=== PATIENT | female | born 1945 | race Caucasian/White ===

== ENCOUNTER → 2017-11-19 11:34 | Outpatient (CLI) | payer MEDICARE, OTHER, SELFPAY ==
[2017-11-19 14:30] LABS: Vitamin D,25 Hydroxy 24.2 ng/mL (29.95-100.01)
== END ==
PROVIDERS: Family Provider Internal Medicine; PCP Internal Medicine; Visit Provider Internal Medicine
DX: M81.0 Age-related osteoporosis without current pathological fracture (principal)
CPT/HCPCS: 36415; 82306

== ENCOUNTER → 2017-12-24 11:33 | Outpatient (CLI) | payer MEDICARE, OTHER, SELFPAY ==
[2017-12-24 11:44] LABS: Bacteria 0 SEEN /hpf (None Seen)
[2017-12-24 13:56] LABS: Absolute Lymphocyte Count 2.09 X10^3/ul (0.83-4.51); Absolute Neutrophil Count 5.6 X10^3/uL (2.0-7.7); Basophil# 0.05 X10^3/uL; Basophil% 0.6 % (0-1); Eosinophil# 0.28 X10^3/uL; Eosinophils% 3.2 % (0-5); Hemoglobin 14.3 g/dl (12.0-15.0); Lymphocyte # 2.09 X10^3/ul (4.0); Lymphocyte % 24.1 % (19-41); Mean Corpuscular Hgb 28.5 pg (27.0-32.0); Mean Corpuscular Volume 83.8 fL (81-99); Mean Platelet Vol. 8.8 fl (6.2-12.0); Monocyte# 0.62 X10^3/uL; Monocyte% 7.1 % (0-10); Neutrophil # 5.64 X10^3/uL (2.7-7.7); Neutrophil % 64.9 % (47-70); POSITIVE COUNT NO; POSITIVE DIFFERENTIAL NO; POSITIVE MORPHOLOGY NO; Platelet Count 266 K/mm3 (150-450); RBC Distribution Width CV 13.9 % (11.6-14.6); RBC Distribution Width SD 41.9 fl (35.1-43.9); Red Blood Count 5.01 M/mm3 (4.2-5.4); White Blood Count 8.7 K/mm3 (4.4-11.0)
[2017-12-24 13:57] LABS: Color, Urine Yellow (Yellow); Glucose, Dipstick Normal (Normal); Ketone-Dipstick Negative (Negative); Leukocyte Esterase-Dipstick 500 /ul (Negative); Nitrite-Dipstick Negative (Negative); Occult Blood-Urine 250 /ul (Negative); Protein-Dipstick 15 mg/dl (Negative); Urine Bilirubin Dipstick Negative (Negative); Urine Clarity Sl. Cloudy (Clear); Urine Urobilinogen Normal (Normal)
[2017-12-24 14:12] LABS: Hyaline Cast 0-5 SEEN /lpf (0-5); Mucous, Urine 1+ /hpf (<or=2+)
[2017-12-24 14:13] LABS: Squamous Epithelial Cells - UA 0-5 SEEN /hpf (5-10); White Blood Cells 0-5 SEEN /hpf (0-5)
[2017-12-24 14:15] LABS: Red Blood Cells-Urine 25-50 SEEN /hpf (0-5)
[2017-12-24 14:27] LABS: Anion Gap 9 (5-15); BUN 14 mg/dL (7-18); BUN/Creat Ratio 17.1 RATIO (10-20); Calcium,Total 8.8 mg/dL (8.5-10.1); Chloride 106 mmol/L (98-107); Creatinine, Serum 0.82 mg/dL (0.55-1.02); EST Glomerular Filtration Rate 72 mL/min (>60); Est Glom Filt Rate - Afr Amer 88 mL/min (>60); Glucose 74 mg/dL (74-106); Potassium 3.3 mmol/L (3.5-5.1); Sodium Level 141 mmol/L (136-145)
== END ==
PROVIDERS: Family Provider Internal Medicine; PCP Internal Medicine; Visit Provider Internal Medicine
DX: N39.0 Urinary tract infection, site not specified (principal)
CPT/HCPCS: 36415; 80048; 81001; 85025; 87086; 87088

== ENCOUNTER → 2018-02-01 15:29 | Outpatient (CLI) | payer MEDICARE, OTHER, SELFPAY ==
[2018-02-01 18:16] LABS: Absolute Lymphocyte Count 0.85 X10^3/ul (0.83-4.51); Absolute Neutrophil Count 5.2 X10^3/uL (2.0-7.7); Basophil# 0.03 X10^3/uL; Basophil% 0.5 % (0-1); Eosinophils% 1.6 % (0-5); Hematocrit 41.7 % (37-47); Hemoglobin 14.1 g/dl (12.0-15.0); Lymphocyte # 0.85 X10^3/ul (4.0); Lymphocyte % 13.4 % (19-41); Mean Corp Hgb Conc 33.8 g/gl (32-36); Mean Corpuscular Hgb 28.4 pg (27.0-32.0); Mean Corpuscular Volume 84.1 fL (81-99); Monocyte# 0.17 X10^3/uL; Monocyte% 2.7 % (0-10); Neutrophil # 5.21 X10^3/uL (2.7-7.7); Neutrophil % 81.8 % (47-70); Platelet Count 214 K/mm3 (150-450); RBC Distribution Width CV 13.7 % (11.6-14.6); RBC Distribution Width SD 41.5 fl (35.1-43.9); Red Blood Count 4.96 M/mm3 (4.2-5.4); White Blood Count 6.4 K/mm3 (4.4-11.0)
[2018-02-01 18:17] LABS: POSITIVE COUNT NO; POSITIVE DIFFERENTIAL NO; POSITIVE MORPHOLOGY NO
[2018-02-01 18:28] LABS: AST(SGOT) 31 U/L (15-37); Alanine Aminotransfer ALT/SGPT 42 U/L (13-56); Albumin, Serum 3.8 g/dL (3.2-5.0); Alkaline Phosphatase 47 U/L (45-117); Anion Gap 8 (5-15); BUN 15 mg/dL (7-18); BUN/Creat Ratio 17.2 RATIO (10-20); Calcium,Total 9.1 mg/dL (8.5-10.1); Chloride 106 mmol/L (98-107); Creatinine, Serum 0.87 mg/dL (0.55-1.02); EST Glomerular Filtration Rate 68 mL/min (>60); Est Glom Filt Rate - Afr Amer 82 mL/min (>60); Globulin 3.7 g/dL (2.2-4.2); Glucose 120 mg/dL (74-106); Protein, Total 7.5 g/dL (6.4-8.2); Sodium Level 141 mmol/L (136-145)
== END ==
PROVIDERS: Family Provider Internal Medicine; PCP Internal Medicine; Visit Provider Internal Medicine Rheumatology
DX: M35.3 Polymyalgia rheumatica (principal); M06.4 Inflammatory polyarthropathy; F32.89 Other specified depressive episodes; E78.5 Hyperlipidemia, unspecified; K58.9 Irritable bowel syndrome, unspecified; G47.33 Obstructive sleep apnea (adult) (pediatric)
CPT/HCPCS: 36415; 80053; 85025

== ENCOUNTER → 2018-02-16 13:16 | Outpatient (CLI) | payer MEDICARE, OTHER, SELFPAY ==
[2018-02-16 13:22] LABS: Pathologist Comment May follow
[2018-02-16 14:11] LABS: Synovial Fld Mononuclear WBC % 83.9 %; Synovial Fld Polynuclear WBC # 0.065 10^3/ul; Synovial Fld Polynuclear WBC % 16.1 %
[2018-02-16 16:29] LABS: AUTO B FLUID DILUENT BKGD CT WBC <0.1 RBC <0.01 (W<.1,R<.01)
[2018-02-16 16:30] LABS: Appearance /Synovial Fluid Cloudy (CLEAR); CRYSTALS, BODY FLUID NONE SEEN; Color / Synovial Fluid Yellow (Pale Yellow); Source- Body Fluid SYNOVIAL; Viscosity / Synovial Fluid Mod. Viscous (HIGH)
[2018-02-16 16:31] LABS: RBC /Synovial Fluid 5222 /mm3 (0); WBC / Synovial Fluid 411 /mm3 (0)
[2018-02-16 16:32] LABS: Body Fluid QC Type(s) BF2,BF3; Lymph 51 %; Monocyte /Synovial Fluid 21 %; Neutrophil 15 % (0-25); Other Cell /Synovial Fluid 13 %
[2018-02-17 11:46] LABS: Pathologist Review Reviewed
== END ==
PROVIDERS: Family Provider Internal Medicine; PCP Internal Medicine; Visit Provider Internal Medicine Rheumatology
DX: M06.4 Inflammatory polyarthropathy (principal); M35.3 Polymyalgia rheumatica; M25.561 Pain in right knee
CPT/HCPCS: 87070; 87075; 87205; 89050; 89051; 89060

== ENCOUNTER → 2018-04-05 14:18 | Outpatient (CLI) | payer MEDICARE, OTHER, SELFPAY | PROVIDERS: Family Provider Internal Medicine; PCP Internal Medicine; Visit Provider Internal Medicine | DX: M81.0 Age-related osteoporosis without current pathological fracture (principal); Z12.31 Encounter for screening mammogram for malignant neoplasm of breast | CPT/HCPCS: 77063; 77067; 77080 ==

== ENCOUNTER → 2018-05-31 10:42 | Outpatient (CLI) | payer MEDICARE, OTHER, SELFPAY ==
[2018-05-31 11:50] LABS: Absolute Lymphocyte Count 1.66 X10^3/ul (0.83-4.51); Absolute Neutrophil Count 3.9 X10^3/uL (2.0-7.7); Basophil# 0.06 X10^3/uL; Basophil% 0.9 % (0-1); Eosinophil# 0.38 X10^3/uL; Eosinophils% 5.8 % (0-5); Hematocrit 42.1 % (37-47); Hemoglobin 14.5 g/dl (12.0-15.0); Lymphocyte # 1.66 X10^3/ul (4.0); Lymphocyte % 25.5 % (19-41); Mean Corp Hgb Conc 34.4 g/gl (32-36); Mean Corpuscular Volume 84.2 fL (81-99); Mean Platelet Vol. 8.8 fl (6.2-12.0); Monocyte# 0.48 X10^3/uL; Monocyte% 7.4 % (0-10); Neutrophil # 3.92 X10^3/uL (2.7-7.7); Neutrophil % 60.1 % (47-70); Platelet Count 261 K/mm3 (150-450); RBC Distribution Width CV 13.4 % (11.6-14.6); RBC Distribution Width SD 40.5 fl (35.1-43.9); White Blood Count 6.5 K/mm3 (4.4-11.0)
[2018-05-31 11:51] LABS: POSITIVE COUNT NO; POSITIVE DIFFERENTIAL NO; POSITIVE MORPHOLOGY NO
[2018-05-31 12:02] LABS: Cholesterol 184 mg/dL (200); High Density Lipoprotein 54 mg/dL; Triglycerides 198 mg/dL; Very Low Density Lipoprotein 40 mg/dL (5-40)
== END ==
PROVIDERS: Family Provider Internal Medicine; PCP Internal Medicine; Referring Provider Internal Medicine; Visit Provider Internal Medicine
DX: D64.9 Anemia, unspecified (principal); N39.0 Urinary tract infection, site not specified; I10 Essential (primary) hypertension
CPT/HCPCS: 36415; 80061; 85025; 87086; 87088

== ENCOUNTER → 2018-07-13 12:01 | Outpatient (CLI) | payer MEDICARE, OTHER, SELFPAY ==
[2018-06-30 15:33] VITALS: BMI 26.7
[2018-07-13 14:27] LABS: Absolute Lymphocyte Count 1.35 X10^3/ul (0.83-4.51); Absolute Neutrophil Count 2.9 X10^3/uL (2.0-7.7); Basophil# 0.03 X10^3/uL; Basophil% 0.6 % (0-1); Eosinophil# 0.34 X10^3/uL; Eosinophils% 6.8 % (0-5); Hematocrit 40.9 % (37-47); Hemoglobin 13.8 g/dl (12.0-15.0); Lymphocyte # 1.35 X10^3/ul (4.0); Lymphocyte % 27.1 % (19-41); Mean Corp Hgb Conc 33.7 g/gl (32-36); Mean Corpuscular Hgb 28.3 pg (27.0-32.0); Mean Corpuscular Volume 83.8 fL (81-99); Mean Platelet Vol. 8.8 fl (6.2-12.0); Monocyte# 0.35 X10^3/uL; Neutrophil # 2.91 X10^3/uL (2.7-7.7); Neutrophil % 58.3 % (47-70); Platelet Count 191 K/mm3 (150-450); RBC Distribution Width CV 13.2 % (11.6-14.6); RBC Distribution Width SD 39.9 fl (35.1-43.9); Red Blood Count 4.88 M/mm3 (4.2-5.4)
[2018-07-13 14:28] LABS: POSITIVE COUNT NO; POSITIVE DIFFERENTIAL NO; POSITIVE MORPHOLOGY NO
[2018-07-13 14:41] LABS: ALB/GLOB Ratio 1.1 RATIO (0.9-2.4); AST(SGOT) 19 U/L (15-37); Alanine Aminotransfer ALT/SGPT 34 U/L (13-56); Albumin, Serum 3.6 g/dL (3.2-5.0); Alkaline Phosphatase 52 U/L (45-117); Anion Gap 9 (5-15); BUN 13 mg/dL (7-18); BUN/Creat Ratio 17.2 RATIO (10-20); Calcium,Total 8.8 mg/dL (8.5-10.1); Chloride 108 mmol/L (98-107); Creatinine, Serum 0.76 mg/dL (0.55-1.02); EST Glomerular Filtration Rate 80 mL/min (>60); Est Glom Filt Rate - Afr Amer 96 mL/min (>60); Globulin 3.3 g/dL (2.2-4.2); Glucose 79 mg/dL (74-106); Potassium 3.7 mmol/L (3.5-5.1); Protein, Total 6.9 g/dL (6.4-8.2); Sodium Level 143 mmol/L (136-145)
--- OUTSIDE RECORDS SUMMARY | 2018-08-29 15:35 | XMS RPT_ITS ---
:1945 Author Organization OHIP Support Name Relationship Address Phone R Unavailable Unavailable Unavailable R Unavailable Unavailable Unavailable R Unavailable Unavailable Unavailable R Unavailable Unavailable Unavailable R Unavailable Unavailable Unavailable R Unavailable Unavailable Unavailable R Unavailable Unavailable Unavailable R Unavailable Unavailable Unavailable R Unavailable Unavailable Unavailable R Unavailable Unavailable Unavailable R Unavailable Unavailable Unavailable R Unavailable Unavailable Unavailable R Unavailable Unavailable Unavailable ZAHRA, LON Unavailable . + [place] [address] R Unavailable Unavailable Unavailable R Unavailable Unavailable Unavailable ZAHRA, ARNAV Unavailable Unavailable + [place] [address] ZAHRA, LON Unavailable Unavailable + [place] [address] R Unavailable Unavailable Unavailable ZAHRA, LON Unavailable . + [place] [address] R Unavailable Unavailable Unavailable R Unavailable Unavailable Unavailable ZAHRA, ARNAV Unavailable Unavailable + [place] [address] ZAHRA, LON Unavailable Unavailable + [place] [address] R Unavailable Unavailable Unavailable ZAHRA, ARNAV Unavailable . + [place] [address] ZAHRA, LON Unavailable . + [place] [address] R Unavailable Unavailable Unavailable ZAHRA, ARNAV Unavailable . + [place] [address] ZAHRA, LON Unavailable . + [place] [address] R Unavailable Unavailable Unavailable ZAHRA, ARNAV Unavailable . + [place] [address] ZAHRA, LON Unavailable . + [place] [address] R Unavailable Unavailable Unavailable ZAHRA, ARNAV Unavailable . + [place] [address] ZAHRA, LON Unavailable . + [place] [address] R Unavailable Unavailable Unavailable ZAHRA, ARNAV Unavailable . + [place] [address] LON SWEENEY Unavailable . + [place] [address] R Unavailable Unavailable Unavailable Care Team Providers Name Role Phone Asia Dozier Attending Unavailable Koffilanki, Asia Referring Unavailable Oleghe, Efewongbe Primary Care Unavailable Saira Knight Attending Unavailable Abdifatah Mann D.O. Attending Unavailable Oleghe, Efewongbe Referring Unavailable Angus Mackenzie [facility] Attending Unavailable Oleghe, Efewongbe Referring Unavailable Oleghe, Efewongbe Primary Care Unavailable Abdifatah Mann D.O. Attending Unavailable Oleghe, Efewongbe Referring Unavailable Maisha Vann Attending Unavailable Oleghe, Efewongbe Referring Unavailable Macho Diamond Attending Unavailable Oleghe, Efewongbe Referring Unavailable Oleghe, Efewongbe Primary Care Unavailable Oleghe, Efewongbe Attending Unavailable Oleghe, Efewongbe Referring Unavailable Oleghe, Efewongbe Primary Care Unavailable Oleghe, Efewongbe Attending Unavailable Oleghe, Efewongbe Primary Care Unavailable Oleghe, Efewongbe Attending Unavailable Oleghe, Efewongbe Referring Unavailable Oleghe, Efewongbe Primary Care Unavailable Oleghe, Efewongbe Attending Unavailable Oleghe, Efewongbe Referring Unavailable Oleghe, Efewongbe Primary Care Unavailable Oleghe, Efewongbe Attending Unavailable Oleghe, Efewongbe Referring Unavailable Oleghe, Efewongbe Primary Care Unavailable Maisha Vann Attending Unavailable Oleghe, Efewongbe Referring Unavailable KoffilankiPepema Attending Unavailable Vellanki, Asia Referring Unavailable Oleghe, Efewongbe Primary Care Unavailable Pepe Dozierma Attending Unavailable Oleghe, Efewongbe Primary Care Unavailable Vellanki, Asia Referring Unavailable Oleghe, Efewongbe Attending Unavailable Oleghe, Efewongbe Referring Unavailable Oleghe, Efewongbe Primary Care Unavailable Oleghe, Efewongbe Attending Unavailable Oleghe, Efewongbe Primary Care Unavailable Oleghe, Efewongbe Referring Unavailable Alan Patel Attending Unavailable Oleghe, Efewongbe Attending Unavailable Oleghe, Efewongbe Referring Unavailable Oleghe, Efewongbe Attending Unavailable Oleghe, Efewongbe Referring Unavailable Oleghe, Efewongbe Primary Care Unavailable Jeff Shah Attending Unavailable Oleghe, Efewongbe Referring Unavailable Oleghe, Efewongbe Attending Unavailable Oleghe, Efewongbe Referring Unavailable PROBLEMS PROBLEMS DATE TYPE CONDITION / CODE ATTENDING STATUS SOURCE 07/13/2018 Unknown M35.3 - Polymyalgia Asia Dozier Active [place] rheumatica / Community M35.3(ICD-10) Hospital Repository 07/13/2018 Unknown 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 / Community M06.4(ICD-10) Hospital Repository 07/13/2018 Unknown F32.89 - Other Asia Dozier Active [place] specified depressive Community episodes / Hospital F32.89(ICD-10) Repository 07/13/2018 Unknown E78.5 - Asia Dozier Active [place] Hyperlipidemia, Community unspecified / Hospital E78.5(ICD-10) Repository 07/13/2018 Unknown K58.9 - Irritable Asia Dozier Active [place] bowel syndrome Community without diarrhea / Hospital K58.9(ICD-10) Repository 07/13/2018 Unknown G47.33 - Obstructive Asia Dozier Active [place] sleep apnea (adult) Community (pediatric) / Hospital G47.33(ICD-10) Repository 05/27/2018 Unknown D64.9 - Anemia, Oleghe, Active [place] unspecified / Efew[facility]be Community D64.9(ICD-10) Hospital Repository 06/14/2018 Unknown Z23 - Encounter for Alan Patel Active [place] immunization / Community Z23(ICD-10) Hospital Repository 02/18/2018 Unknown M81.0 - Age-related Oleghe, Active [place] osteoporosis without ewongbe [facility] current pathological Hospital fracture / Repository M81.0(ICD-10) 02/18/2018 Unknown Z12.31 - Encounter Oleghe, Active [place] for screening [facility] mammogram for Hospital malignant neoplasm of Repository breast / Z12.31(ICD-10) 02/18/2018 Unknown I10 - Essential Oleghe, Active [place] (primary) [facility] hypertension / Hospital I10(ICD-10) Repository 02/16/2018 Unknown M25.561 - Pain in Asia Dozier Active [place] right knee / Community M25.561(ICD-10) Hospital Repository 12/24/2017 Unknown N39.0 - Urinary tract Oleghe, Active [place] infection, site not [facility] Community specified / Hospital N39.0(ICD-10) Repository 10/21/2017 Unknown F17.201 - Nicotine Abdifatah Mann, Active [place] dependence, D.O. Community unspecified, in Hospital remission / Repository F17.201(ICD-10) 10/21/2017 Unknown Z09 - Encounter for Abdifatah Mann, Active [place] follow-up examination D.O. Community after completed Hospital treatment for Repository conditions other than malignant neoplasm / Z09(ICD-10) PROCEDURES PROCEDURES No Procedure Records FoundRESULTS RESULTS CBC W/DIFF, AUTOMATED Collected: 07/13/2018 Status: F Source: [place] 12:11 PM [facility] REPOSITORY TYPE CODE TESTS RESULT OUT OF RANGE REFERENCE UNITS LAB L100.1000 4.4-11.0 K/mm3 Normal WBC 5.0 LAB L100.1200 4.2-5.4 M/mm3 Normal RBC 4.88 LAB L100.1300 12.0-15.0 g/dl Normal HGB 13.8 LAB L100.1400 37-47 % Normal HCT 40.9 LAB L100.1500 81-99 fL Normal MCV 83.8 LAB L100.1600 27.0-32.0 pg Normal MCH 28.3 LAB L100.1700 32-36 g/gl Normal MCHC 33.7 LAB L100.1810 11.6-14.6 % Normal RDW CV 13.2 LAB L100.1820 35.1-43.9 fl Normal RDW SD 39.9 LAB L100.1900 150-450 K/mm3 Normal PLT 191 LAB L100.2000 6.2-12.0 fl Normal MPV 8.8 LAB L100.2100 47-70 % Normal NEUT% 58.3 LAB L100.2200 19-41 % Normal LY% 27.1 LAB L100.2300 0-10 % Normal MONO% 7.0 LAB L100.2400 0-5 % High EO% 6.8 LAB L100.2500 0-1 % Normal BASO% 0.6 LAB L100.2550 0.0-0.9 % Normal IM GRAN % 0.200 Result Comment: IG% - Immature Granulocytes (promyelocytes, myelocytes and metamyelocytes) > 1% indicates that a LEFT SHIFT is Present. LAB L100.2620 2.0-7.7 X10 3/uL Normal Absolute Neut 2.9 LAB L100.2720 0.83-4.51 X10 3/ul Normal Absolute Lymph 1.35 Performed By: #### L100.0100 #### [facility] [address] [place], [address] COMPREHENSIVE METABOLIC Collected: 07/13/2018 Status: F Source: [facility] 12:11 PM [facility] REPOSITORY TYPE CODE TESTS RESULT OUT OF RANGE REFERENCE UNITS LAB L501.0100 74-106 mg/dL Normal GLU 79 Result Comment: Please note revised GLUCOSE reference range effective 2017. LAB L501.1000 7-18 mg/dL Normal BUN 13 LAB L501.1100 0.55-1.02 mg/dL Normal CREAT,SERUM 0.76 Result Comment: The validity of the calculated GFR AND GFRAA in patients over 70 years has not been determined. Clinical correlation is essential. LAB L501.1110 >60 mL/min Normal EST GFR 80 Result Comment: Non- GFR Calc LAB L501.1115 >60 mL/min Normal EST GFR - AA 96 Result Comment: GFR Calc LAB L501.1300 10-20 RATIO Normal BUN/CRE 17.2 LAB L501.1500 6.4-8.2 g/dL T Normal PROT 6.9 LAB L501.1800 3.2-5.0 g/dL Normal ALB 3.6 LAB L501.1950 2.2-4.2 g/dL Normal GLOB 3.3 LAB L501.2000 0.9-2.4 RATIO Normal A/G 1.1 LAB L501.2200 8.5-10.1 mg/dL CA Normal 8.8 LAB L501.4100 15-37 U/L Normal AST 19 LAB L501.4305 45-117 U/L Normal ALK P 52 LAB L501.4405 13-56 U/L Normal ALT 34 LAB L501.4600 0.20-1.00 mg/dL T Normal BILI 0.90 LAB L501.5300 136-145 mmol/L NA Normal 143 LAB L501.5600 3.5-5.1 mmol/L K Normal 3.7 LAB L501.5900 98-107 mmol/L High CL 108 LAB L501.6100 21.0-32.0 mmol/L Normal CO2 26.0 LAB L501.6200 5-15 Normal GAP 9 Performed By: #### L500.4050 #### [facility] [address] [place], [address] INTERNAL MEDICINE Observed: 06/30/2018 Status: F Source: [place] OFFICE VISIT 6:54 PM [facility] REPOSITORY [facility] [address] [place] [address] [place] [address] OFFICE VISIT Date of Service: 06/30/18 MR#: [id number] Acct: [id number] Name: BRANDI SWEENEY Rep #: [id number] : 1945 Provider: Berta Sofia MD Age/Sex: 73/F Location: [facility] Status: Signed Intake Vital Signs06/30/18 Height 5 ft 4 in Intake Visit Reasons: 1 MO F/U Chief Complaint: f/u BP Is patient in pain?: No Allergies No Known Allergies Allergy (Verified 06/27/18 10:13) Medications acetaminophen 325 mg tablet 500 mg PO Q4H PRN 07/19/17 [History Confirmed 06/27/18] aspirin 81 mg tablet,delayed release 81 mg PO QDAY 07/19/17 [History Confirmed 06/27/18] omeprazole 20 mg capsule,delayed release 20 mg PO QDAY #90 cap 09/29/17 [Rx Confirmed 06/27/18] hydroxychloroquine 200 mg tablet 200 mg PO QDAY 10/26/17 [History Confirmed 06/27/18] ferrous sulfate 325 mg (65 mg iron) tablet 325 mg PO DAILY #30 tab 04/15/18 [Rx Confirmed 06/27/18] amlodipine 5 mg tablet 10 mg PO QDAY #90 tab 05/27/18 [Rx Confirmed 06/27/18] sertraline 50 mg tablet 75 mg PO QDAY #90 tab 05/27/18 [Rx Confirmed 06/27/18] prednisone 10 mg tablet 10 mg PO DAILY 06/27/18 [History Confirmed 06/27/18] Post menopausal: Yes PFSH Medical History Osteoporosis (Chronic) Hypertension (Chronic) YOUNG (obstructive sleep apnea) (Chronic) SOB (shortness of breath) (Chronic) Anemia (Chronic) Hyperlipidemia (Chronic) Rheumatoid arthritis (Chronic) Snoring (Chronic) GERD (gastroesophageal reflux disease) (Chronic) Nicotine dependence in remission (Chronic) Anxiety associated with depression (Chronic) Dyspnea on exertion (Chronic) Back pain (Acute) Bone fracture (Acute) Cataracts, bilateral (Acute) Chronic bronchitis (Acute) Gastrointestinal problem (Acute) Hearing problem (Acute) Hemorrhoids (Acute) IBS (irritable bowel syndrome) (Acute) Incontinence (Acute) Knee pain (Acute) Shoulder pain (Acute) Obstructive sleep apnea (Chronic) Surgical History History of tubal ligation (Resolved) Hx of LASIK (Resolved) history of mastoids in ear (Resolved) History of colon surgery (Resolved) Family History Mother , 75 years Cancer Liver cancer and stomach Angina at rest Anxiety History of blood transfusion Diabetes Hypertension High cholesterol Liver disease Father , 60 years Heart disease [place] Angina at rest High cholesterol Brother Heart disease Sister Asthma A CHILD Depression Colon cancer Multiple allergies Brother Pancreatic cancer Social History adopted: No housing: house current occupational status: previously employed current occupational exposures/hazards: No pets and animals: Yes pets and animals: dog(s), cat(s) Smoking Status: Former smoker quit date: 01/24/99 pack-years: 40 how long ago did patient quit smokin second hand exposure: No alcohol intake: never substance use type: does not use caffeine: Yes (3/day) additional social history: USES ASPIRIN HPI HPI Chief Complaint: f/u BP Details: BRANDI SWEENEY, is a 73 F who presents to the office today for follow-up on hypertension. Recently had adjustments to medication. Blood pressure is better controlled at this time. She denies any concerns with her medication. ROS Const Constitutional: No body ache, chills, headache(s), weakness or fever(s) Eyes Eyes: No blurry vision, change in vision, eye pain or discharge ENT ENT: No headache(s), abnormal hearing, ear pain, ear pressure, tinnitus, dizziness/vertigo or balance problems Resp Respiratory: No cough, shortness of breath or wheezing Cardio Cardiology: No chest pain at rest, shortness of breath, dyspnea on exertion or palpitations Gastro GI: No abdominal pain or bloating Neuro Neurology: No headache(s), weakness or abnormal hearing Aller/Imm Allergy/Immunologic: No wheezing Exam Const General: cooperative, no acute distress Orientation: alert, awake, oriented x3 HENMT Head: atraumatic, normocephalic, normal to inspection Ears: hearing grossly normal bilaterally Resp Effort AND Inspection: normal respiratory effort, able to speak in complete sentences Auscultation: Bilateral: Clear to Auscultation Cardio Rate: regular rate Rhythm: regular rhythm Heart Sounds: S1 normal, S2 normal GI Palpation: soft, no hepatosplenomegaly Neuro General: alert, awake, oriented x3, moves all extremities, CN's II-XI intact bilaterally Extrem General: no clubbing, cyanosis or edema Psych Appearance: grossly normal Mood: congruent mood Affect: normal affect Assessment AND Plan 1. Hypertension I10 Plan Better controlled. Blood pressure in office of 122/70 mmHg. She reports compliance with her medications. No other concerns. Continue current medication. Continue lifestyle and dietary modifications. 2. Anxiety associated with depression F41.8 Plan Has a lot of life stresses right now. Twin brother is dying from pancreatic cancer. On her way to the [facility] to see him. Otherwise stable on sertraline. Continue current medication. Advised to call with any questions or concerns. This note was generated with [employer] dictation software. It may contain incorrect words, spelling, and punctuation that were not noted in checking the note before signing. Coding Level of Care Code Off vis,est,level 3 Diagnoses Hypertension I10 Anxiety associated with depression F41.8 06/30/18 7154 <Electronically signed by Berta Sofia MD> Date Berta Sofia MD Cosigner Signature: Date (if applicable) CC: URGENT CARE VISIT Observed: 06/27/2018 Status: F Source: [place] REPORT 10:21 AM [facility] REPOSITORY [facility] [address] [place] [address] [address] [place] [address] OFFICE VISIT Date of Service: 06/27/18 MR#: [id number] Acct: [id number] Name: BRANDI SWEENEY Rep #: [id number] : 1945 Provider: Jeff HENLEY Age/Sex: 73/F Location: [facility] Status: Signed Intake Vital Signs06/27/18 Height 5 ft 4 in Intake Visit Reasons: Conjunctivitis Chief Complaint: Redness to right eye Allergies No Known Allergies Allergy (Verified 06/27/18 10:13) Medications acetaminophen 325 mg tablet 500 mg PO Q4H PRN 07/19/17 [History Confirmed 06/27/18] aspirin 81 mg tablet,delayed release 81 mg PO QDAY 07/19/17 [History Confirmed 06/27/18] omeprazole 20 mg capsule,delayed release 20 mg PO QDAY #90 cap 09/29/17 [Rx Confirmed 06/27/18] hydroxychloroquine 200 mg tablet 200 mg PO QDAY 10/26/17 [History Confirmed 06/27/18] ferrous sulfate 325 mg (65 mg iron) tablet 325 mg PO DAILY #30 tab 04/15/18 [Rx Confirmed 06/27/18] amlodipine 5 mg tablet 10 mg PO QDAY #90 tab 05/27/18 [Rx Confirmed 06/27/18] sertraline 50 mg tablet 75 mg PO QDAY #90 tab 05/27/18 [Rx Confirmed 06/27/18] prednisone 10 mg tablet 10 mg PO DAILY 06/27/18 [History Confirmed 06/27/18] PFSH Medical History Osteoporosis (Chronic) Hypertension (Chronic) YOUNG (obstructive sleep apnea) (Chronic) SOB (shortness of breath) (Chronic) Anemia (Chronic) Hyperlipidemia (Chronic) Rheumatoid arthritis (Chronic) Snoring (Chronic) GERD (gastroesophageal reflux disease) (Chronic) Nicotine dependence in remission (Chronic) Anxiety associated with depression (Chronic) Dyspnea on exertion (Chronic) Back pain (Acute) Bone fracture (Acute) Cataracts, bilateral (Acute) Chronic bronchitis (Acute) Gastrointestinal problem (Acute) Hearing problem (Acute) Hemorrhoids (Acute) IBS (irritable bowel syndrome) (Acute) Incontinence (Acute) Knee pain (Acute) Shoulder pain (Acute) Obstructive sleep apnea (Chronic) Surgical History History of tubal ligation (Resolved) Hx of LASIK (Resolved) history of mastoids in ear (Resolved) History of colon surgery (Resolved) Family History Mother , 75 years Cancer Liver cancer and stomach Angina at rest Anxiety History of blood transfusion Diabetes Hypertension High cholesterol Liver disease Father , 60 years Heart disease [place] Angina at rest High cholesterol Brother Heart disease Sister Asthma A CHILD Depression Colon cancer Multiple allergies Brother Pancreatic cancer Social History adopted: No housing: house current occupational status: previously employed current occupational exposures/hazards: No pets and animals: Yes pets and animals: dog(s), cat(s) Smoking Status: Former smoker quit date: 01/24/99 pack-years: 40 how long ago did patient quit smokin second hand exposure: No alcohol intake: never substance use type: does not use caffeine: Yes (3/day) additional social history: USES ASPIRIN HPI HPI Chief Complaint: Redness to right eye Details: BRANDI SWEENEY, is a 73 F who presents to the office today for initial evaluation new onset redness to right eye. Patient notes no complaints of localized discomfort or discharge or vision changes. She notes no history of trauma to the same. She notes no coughing or sneezing or bearing down episodes recently. She notes no complaints of fever, chills, sweats, headaches, lightheadedness/dizziness. She notes no other associated symptoms no other alleviating or aggravating factors. ROS Const Constitutional: No other (ROS negative x10 other than as noted above) Exam Const General: cooperative, healthy appearing, no acute distress, comfortable Nutritional Appearance: average body habitus Orientation: alert, awake, oriented x3 HENMT Head: normal to inspection, normocephalic, atraumatic Ears: hearing grossly normal bilaterally, external ears normal, TM's normal bilaterally, EAC's normal Nose: external nose normal, nares normal, septum normal, no nasal discharge Face and sinus: normal facial exam, face symmetric, sinuses nontender Mouth: oral mucosae normal, lip normal, tongue normal Teeth and gingiva: gingiva normal, dentition normal Throat: uvula midline, tonsils normal, posterior oropharynx normal, no postnasal drainage Eyes Visual Murillo: normal visual murillo by confrontation Alignment and Position: alignment normal Periorbital: periorbital findings normal Eyelids: eyelids normal Conjunctivae: conjunctivae normal (Except the subconjunctival hemorrhage to the lateral half; negative limbus) Cornea: corneas normal Pupils: PERRL EOM: EOM intact bilaterally Direct ophthalmoscopy: normal light reflex Neck Neck: normal visual inspection, full ROM, no lymphadenopathy, no meningeal signs, supple Neck mass: No Thyroid: thyroid normal Lymphatic: no lymphadenopathy noted Chest Chest palpation AND inspection: normal inspection of the chest Resp Effort AND Inspection: normal respiratory effort, able to speak in complete sentences, symmetric chest movement, no cough Auscultation: Bilateral: Clear to Auscultation Cardio Palpation: normal PMI Rate: regular rate Rhythm: regular rhythm Heart Sounds: S1 normal, S2 normal, no gallops, no murmurs, no rubs Pulses: radial pulses present GI Inspection: normal to inspection Palpation: soft, no hepatosplenomegaly Skin General: no rashes or lesions noted Neuro General: alert, awake, oriented x3, gait normal Cognition: normal cognition Speech: speech normal Gait: normal gait Motor: muscle tone normal throughout Sensory Exam: no sensory deficits noted Psych Appearance: grossly normal Mental Status: mental status grossly normal Mood: congruent mood Affect: normal affect Speech and Movement: speech and movement normal Attitude: cooperative Thought Process: normal Thought Content: normal Judgment: judgment good Assessment AND Plan 1. Conjunctivitis H10.9 2. Subconjunctival hemorrhage of right eye H11.31 Plan Rest, Tylenol as needed for symptomatic relief. Reassured patient no signs of conjunctivitis. Follow-up with PCP in 3-5 days should symptoms not improve, sooner should symptoms worsen or any other concerns develop. Patient states acknowledging understanding all the above. This note was generated with [employer] software. It may contain incorrect words, spelling, and punctuation that were not noted in checking the note before signing. Plan Detail Other Medications Discontinued: albuterol sulfate HFA 90 mcg/actuation (ProAir HFA) a2 puffs Inhalation Q4H 1 inh 3RF dminister with spacer Discontinued Reason: Pt no elmer nena taking Coding Level of Care Code Off vis,est,level 3 Diagnoses Conjunctivitis H10.9 Subconjunctival hemorrhage of right eye H11.31 06/27/18 1021 <Electronically signed by Jeff HENLEY> Date Jeff HENLEY Cosigner Signature: Date (if applicable) CC: OFFICE VISIT REPORT Observed: 06/10/2018 Status: F Source: [place] 7:[address] [place] [address] OFFICE VISIT Date of Service: 04/30/18 MR#: [id number] Acct: [id number] Patient: BRANDI SWEENEY Rep #: [id number] : 1945 Provider: Fazal Anderson RN Age/Sex: 72/F Location: [facility] Status: Signed Intake Vital Signs04/30/18 Temperature 98.4 F Intake Visit Reasons: Flu shot Chief Complaint: 3 Mo follow-up visit Allergies No Known Allergies Allergy (Verified 05/27/18 11:15) Medications acetaminophen 325 mg tablet 500 mg PO Q4H PRN 07/19/17 [History Confirmed 05/27/18] kgtae-z-sbqzsbzoqbqcv 300 unit disintegrating tablet 300 unit PO TID PRN 07/19/17 [History Confirmed 05/27/18] aspirin 81 mg tablet,delayed release 81 mg PO QDAY 07/19/17 [History Confirmed 05/27/18] lisinopril 10 mg tablet 10 mg PO QDAY 07/19/17 [History Confirmed 05/27/18] prednisolone sodium phosphate 10 mg/5 mL oral solution 5 mg PO ONCE 07/19/17 [History Confirmed 05/27/18] albuterol sulfate HFA 90 mcg/actuation aerosol inhaler 2 puff INHALATION Q4H #1 inh 08/03/17 [Rx Confirmed 05/27/18] calcium carbonat and lactate 200 mg calcium-vitamin D3 250 unit tablet 2 tab PO HS 08/20/17 [History Confirmed 05/27/18] omeprazole 20 mg capsule,delayed release 20 mg PO QDAY #90 cap 09/29/17 [Rx Confirmed 05/27/18] hydroxychloroquine 200 mg tablet 200 mg PO QDAY 10/26/17 [History Confirmed 05/27/18] risedronate 150 mg tablet 150 mg PO QMONTH 10/26/17 [History Confirmed 05/27/18] simvastatin 10 mg tablet 10 mg PO QPM #90 tab 03/30/18 [Rx Confirmed 05/27/18] ferrous sulfate 325 mg (65 mg iron) tablet 325 mg PO DAILY #30 tab 04/15/18 [Rx Confirmed 05/27/18] amlodipine 5 mg tablet 10 mg PO QDAY #90 tab 05/27/18 [Rx Confirmed 05/27/18] blood pressure test kit-medium cuff See Dose Instructions .ROUTE .MEDSUPPLY #1 ea 05/27/18 [Rx Confirmed 05/27/18] gabapentin 100 mg capsule 100 mg PO QHS #60 cap 05/27/18 [Rx Confirmed 05/27/18] sertraline 50 mg tablet 75 mg PO QDAY #90 tab 05/27/18 [Rx Confirmed 05/27/18] Office Meds Fluad 65yr up(PF)45 mcg(15 mcgx3)/0.5 mL intramuscular syringe Performing Provider: LORY Bell Administered by: Miriam Nicole on 04/30/18 12:31 Dose Route Admin Location Lot Number Expiration Date [facility] [employer] 0.5 mL IM L DELTOID [id number] 11/29/18 78701-763-38 [employer] Assessment AND Plan Orders Orders: Medications Discontinued: Fluad 65yr up(PF)45 mcg(15 mcgx3)/0.5 mL intramus0.5 mL IM ONCE 0.5 mL 0RF NS Z23 cular syringe (flu vac 2017 [id number])) Discont inued Reason: Office Medication has been Documented as g robinson 06/10/18 0740 <Electronically signed by Alan HENLEY> Date Alan Sánchezer Signature: Date (if applicable) CC: CBC W/DIFF, AUTOMATED Collected: 05/31/2018 Status: F Source: [place] 10:48 AM [facility] REPOSITORY TYPE CODE TESTS RESULT OUT OF RANGE REFERENCE UNITS LAB L100.1000 4.4-11.0 K/mm3 Normal WBC 6.5 LAB L100.1200 4.2-5.4 M/mm3 Normal RBC 5.00 LAB L100.1300 12.0-15.0 g/dl Normal HGB 14.5 LAB L100.1400 37-47 % Normal HCT 42.1 LAB L100.1500 81-99 fL Normal MCV 84.2 LAB L100.1600 27.0-32.0 pg Normal MCH 29.0 LAB L100.1700 32-36 g/gl Normal MCHC 34.4 LAB L100.1810 11.6-14.6 % Normal RDW CV 13.4 LAB L100.1820 35.1-43.9 fl Normal RDW SD 40.5 LAB L100.1900 150-450 K/mm3 Normal PLT 261 LAB L100.2000 6.2-12.0 fl Normal MPV 8.8 LAB L100.2100 47-70 % Normal NEUT% 60.1 LAB L100.2200 19-41 % Normal LY% 25.5 LAB L100.2300 0-10 % Normal MONO% 7.4 LAB L100.2400 0-5 % High EO% 5.8 LAB L100.2500 0-1 % Normal BASO% 0.9 LAB L100.2550 0.0-0.9 % Normal IM GRAN % 0.300 Result Comment: IG% - Immature Granulocytes (promyelocytes, myelocytes and metamyelocytes) > 1% indicates that a LEFT SHIFT is Present. LAB L100.2620 2.0-7.7 X10 3/uL Normal Absolute Neut 3.9 LAB L100.2720 0.83-4.51 X10 3/ul Normal Absolute Lymph 1.66 Performed By: #### L100.0100 #### [facility] [address] [place], [address] LIPID PROFILE Collected: 05/31/2018 Status: F Source: [place] 10:48 AM [facility] REPOSITORY Order Comment: Comments: Fasting Comments: Fasting TYPE CODE TESTS RESULT OUT OF RANGE REFERENCE UNITS LAB L501.4900 200 mg/dL Normal CHOL 184 Result Comment: <200 mg/dL Desirable 200-240 mg/dL Borderline >240 mg/dL High Risk LAB L501.5000 mg/dL Normal TRIG 198 Result Comment: The drugs N-Acetylcysteine and Metamizole may falsely depress this assay. Serum Triglycerides Reference Interval Normal <150 mg/dL Borderline high 150 - 199 mg/dL High 200 - 499 mg/dL Very High > or = 500 mg/dL LAB L501.6400 mg/dL Normal HDL 54 Result Comment: The drugs N-Acetylcysteine and Metamizole may falsely depress this assay. Reference Range HDL <40 mg/dL Low HDL Cholesterol HDL >or= 60 mg/dL High HDL Cholesterol LAB L501.6500 0-130 mg/dL Normal LDL 90 LAB L501.6600 5-40 mg/dL Normal VLDL 40 Performed By: #### L500.4100 #### [facility] [address] [place], [address] Observed: 05/31/2018 Status: F Source: [place] CULTURE, URINE 10:48 AM [facility] REPOSITORY Urine Culture Below infection level. ORGANISM 1: Mixed Gram Positive Organisms Mullin Count 1000-10,000 Performed By: #### M100.0650 #### [facility] [address] [place], [address] INTERNAL MEDICINE Observed: 05/30/2018 Status: F Source: [place] OFFICE VISIT 1:10 PM [facility] REPOSITORY [facility] [address] [place] [address] [place] [address] OFFICE VISIT Date of Service: 05/27/18 MR#: [id number] Acct: [id number] Name: BRANDI SWEENEY Rep #: [id number] : 1945 Provider: Berta Sofia MD Age/Sex: 73/F Location: [facility] Status: Signed Intake Vital Signs05/27/18 Height 5 ft 3.75 in 05/27/18 Weight: 156 lb 05/27/18 Body Mass Index (BMI) 26.9 05/27/18 Blood Pressure 145/78 H 05/27/18 Blood Pressure Location Lt brachial Intake Visit Reasons: 3 mo f/u Chief Complaint: 3 Mo follow-up visit Is patient in pain?: Yes (Rt knee) Pain scale (1-10): 3 Allergies No Known Allergies Allergy (Verified 05/27/18 11:15) Medications acetaminophen 325 mg tablet 500 mg PO Q4H PRN 07/19/17 [History Confirmed 05/27/18] pqqpb-w-acewddkvwwfyr 300 unit disintegrating tablet 300 unit PO TID PRN 07/19/17 [History Confirmed 05/27/18] aspirin 81 mg tablet,delayed release 81 mg PO QDAY 07/19/17 [History Confirmed 05/27/18] lisinopril 10 mg tablet 10 mg PO QDAY 07/19/17 [History Confirmed 05/27/18] prednisolone sodium phosphate 10 mg/5 mL oral solution 5 mg PO ONCE 07/19/17 [History Confirmed 05/27/18] albuterol sulfate HFA 90 mcg/actuation aerosol inhaler 2 puff INHALATION Q4H #1 inh 08/03/17 [Rx Confirmed 05/27/18] calcium carbonat and lactate 200 mg calcium-vitamin D3 250 unit tablet 2 tab PO HS 08/20/17 [History Confirmed 05/27/18] omeprazole 20 mg capsule,delayed release 20 mg PO QDAY #90 cap 09/29/17 [Rx Confirmed 05/27/18] hydroxychloroquine 200 mg tablet 200 mg PO QDAY 10/26/17 [History Confirmed 05/27/18] risedronate 150 mg tablet 150 mg PO QMONTH 10/26/17 [History Confirmed 05/27/18] simvastatin 10 mg tablet 10 mg PO QPM #90 tab 03/30/18 [Rx Confirmed 05/27/18] ferrous sulfate 325 mg (65 mg iron) tablet 325 mg PO DAILY #30 tab 04/15/18 [Rx Confirmed 05/27/18] amlodipine 5 mg tablet 10 mg PO QDAY #90 tab 05/27/18 [Rx Confirmed 05/27/18] blood pressure test kit-medium cuff See Dose Instructions .ROUTE .MEDSUPPLY #1 ea 05/27/18 [Rx Confirmed 05/27/18] gabapentin 100 mg capsule 100 mg PO QHS #60 cap 05/27/18 [Rx Confirmed 05/27/18] sertraline 50 mg tablet 75 mg PO QDAY #90 tab 05/27/18 [Rx Confirmed 05/27/18] PFSH Medical History Osteoporosis (Chronic) Hypertension (Chronic) YOUNG (obstructive sleep apnea) (Chronic) SOB (shortness of breath) (Chronic) Anemia (Chronic) Hyperlipidemia (Chronic) Rheumatoid arthritis (Chronic) Snoring (Chronic) GERD (gastroesophageal reflux disease) (Chronic) Nicotine dependence in remission (Chronic) Anxiety associated with depression (Chronic) Dyspnea on exertion (Chronic) Bone fracture (Acute) Cataracts, bilateral (Acute) Chronic bronchitis (Acute) Gastrointestinal problem (Acute) Hearing problem (Acute) IBS (irritable bowel syndrome) (Acute) Obstructive sleep apnea (Chronic) Surgical History History of tubal ligation (Resolved) Hx of LASIK (Resolved) history of mastoids in ear (Resolved) History of colon surgery (Resolved) Family History Mother , 75 years Cancer Liver cancer and stomach Angina at rest Anxiety History of blood transfusion Diabetes Hypertension High cholesterol Liver disease Father , 60 years Heart disease [place] Angina at rest High cholesterol Brother Heart disease Sister Asthma A CHILD Depression Colon cancer Multiple allergies Brother Pancreatic cancer Social History adopted: No housing: house current occupational status: previously employed current occupational exposures/hazards: No pets and animals: Yes pets and animals: dog(s), cat(s) Smoking Status: Former smoker quit date: 01/24/99 pack-years: 40 how long ago did patient quit smokin second hand exposure: No alcohol intake: never substance use type: does not use caffeine: Yes (3/day) additional social history: USES ASPIRIN HPI HPI Chief Complaint: 3 Mo follow-up visit Details: BRANDI SWEENEY, is a 73yo F who presents to the office today for follow-up of her chronic medical conditions. She is also concerned about lingering fatigue which has been going on for a couple of months. Similar episode about a year ago at which point she was noted to be anemic and symptoms also improved after she started using her CPAP. She however states that she had forgotten to take her iron supplements for a while. Only resumed taking it 3 days ago. Depression also was said to have been stable however, she has a history of worsening depression with season change. ROS Const Constitutional: No chills, fatigue, fever(s), frequent falls, malaise, weakness, sleep problems or change in appetite Eyes Eyes: No blurry vision, change in vision, double vision, discharge or visual disturbances ENT ENT: No abnormal hearing, ear pain, ear pressure, tinnitus or dizziness/vertigo Resp Respiratory: No cough, shortness of breath or wheezing Cardio Cardiology: No chest pain at rest, chest pain with exertion, shortness of breath, dyspnea on exertion, generalized swelling, irregular heart rhythm, lightheadedness, orthopnea, fast heart rate or palpitations Gastro GI: No abdominal pain, change in bowel habits, constipation, diarrhea, nausea/dyspepsia or vomiting Genitourinary-Female: No difficulty urinating, burning urination, painful urination, urinary incontinence, urinary frequency, urinary urgency, urinary hesitancy, urinary retention, Frequent nighttime urination/ nocturia, sexual problems, genital lesions, abnormal vaginal bleeding, pelvic pain, vaginal dryness, vaginal odor or Vaginal Itching Musc Musculoskeletal: No back pain, joint swelling, limited range of motion, numbness or tingling Skin Skin: No change in skin color, itching, rash or wounds Breast Breast: No breast lump or breast pain Neuro Neurology: No frequent falls, weakness, abnormal hearing, numbness, tingling, unsteady gait/balance, dizziness, loss of vision, memory loss or visual disturbances Psych Psychiatric: No memory loss, No anxiety, No change in appetite, No depression, No Thoughts of harming yourself/Others Endo Endocrine: No fatigue, heat intolerance, increased thirst/drinking, increased hunger or increased urination Aller/Imm Allergy/Immunologic: No wheezing, itchy eyes or seasonal allergy symptoms Nathan/Lymp Hematologic/Lymphatic: No easy bleeding, easy bruising or enlarged lymph nodes Exam Const General: cooperative, no acute distress Orientation: alert, awake, oriented x3 HENMT Head: atraumatic, normocephalic Ears: hearing grossly normal bilaterally Resp Effort AND Inspection: normal respiratory effort, able to speak in complete sentences Auscultation: Bilateral: Clear to Auscultation Cardio Rate: regular rate Rhythm: regular rhythm Heart Sounds: S1 normal, S2 normal GI Palpation: soft, no hepatosplenomegaly Other: Neuro General: alert, awake, oriented x3, moves all extremities, CN's II-XI intact bilaterally Extrem General: no clubbing, cyanosis or edema Psych Appearance: grossly normal Mood: congruent mood Affect: normal affect Assessment AND Plan 1. Fatigue R53.83 Plan Said to have been ongoing for several weeks. Similar episode about a year ago at which point she was noted to be anemic. She has also not routinely taking iron supplements as she should. CBC ordered. Compliance with iron supplements encouraged. Follow-up with results 2. Anxiety associated with depression F41.8 Plan History of seasonal affective disorder. Depression and also to be worsening. Increase Zoloft to 75 mg daily. Lifestyle modifications encouraged. Follow-up at next visit. 3. Hypertension I10 Plan Still not optimally controlled. Increase amlodipine to 10 mg daily. Advised to keep a blood pressure log. Follow-up in 1 month. 4. Osteoporosis M81.0 Plan Currently on risedronate. Follows up with her practice lead. Most recent bone density within normal. She might benefit from a drug holiday. This note was generated with [employer] dictation software. It may contain incorrect words, spelling, and punctuation that were not noted in checking the note before signing. Plan Detail Other Orders Orders: Other Medications New: Changed: Refilled: Coding Level of Care Code Off vis,est,level 4 Diagnoses Fatigue R53.83 Anxiety associated with depression F41.8 Hypertension I10 Osteoporosis M81.0 05/30/18 1310 <Electronically signed by Berta Sofia MD> Date Berta Sofia MD Cosigner Signature: Date (if applicable) CC: SCREENING MAMM (CAD), Observed: 04/05/2018 Status: F Source: [place] BILAT 2:19 PM [facility] REPOSITORY [facility] Imaging Services [address] [place] [address] SCREENING MAMM (CAD), BILAT MR#: [id number] Acct: [id number] Name: BRANDI SWEENEY Rep #: [id number] : 1945 F 72 From: Renny Bell MD PCP: Berta Sofia MD Status: REG CLI Study: SCREENING MAMM (CAD), BILAT Date of Exam: 04/05/18 Exam# [id number] Ordering Dr: Berta Sofia MD MAMMOGRAPHY - BILATERAL SCREENING REASON FOR EXAM: Female, 72 years old. Routine annual screening examination. PERTINENT HISTORY: Non-contributory. TECHNIQUE: Digital bilateral breast nelson (3D mammographic acquisition) in the CC and MLO projections. 2-D mediolateral oblique (MLO) and craniocaudad (CC) views of both breasts were obtained. CAD: Full Field Digital Mammography with Computer Added Detection was performed. COMPARISON: Comparison is made with prior study dated April 01, 2017 and March 31, 2016. FINDINGS: Breast Composition: The breasts are heterogeneously dense, which may obscure small masses. There are no dominant masses or suspicious calcifications. No other significant abnormalities are identified. There has been no significant change since the prior study. BI/SCREENING MAMM (CAD), BILAT IMPRESSION: Stable bilateral screening mammogram. Yearly follow-up mammogram recommended. (A) ASSESSMENT CATEGORY: BIRADS Category 1: Negative. A letter regarding these results will be sent to the patient by the facility within 30 days. Approximately 10% of breast cancers are not detected by mammography. A normal mammogram should not delay biopsy of a clinically suspicious abnormality. [id number] Electronically Signed: Renny Bell MD at 15:54 EDT Tel [phone], Service support , CC: Berta Sofia MD Flight Control Tower Operator: Signed DEXA BONE DENSITY Observed: 04/05/2018 Status: F Source: [place] STUDY 2:19 PM [facility] REPOSITORY [facility] Imaging Services [address] [place] [id number] Dexa Bone Density Study MR#: [id number] Acct: [id number] Name: BRANDI SWEENEY Rep #: [id number] : 1945 F 72 From: Renny Bell MD PCP: Berta Sofia MD Status: REG CLI Study: Dexa Bone Density Study Date of Exam: 04/05/18 Exam# [id number] Ordering Dr: Berta Sofia MD STUDY: DUAL ENERGY X-RAY ABSORPTIOMETRY / DXA REASON FOR EXAM: Female, 72 years old. The patient is postmenopausal. Loss of height. TECHNIQUE: Bone Mineral Density (BMD) measurements of lumbar spine and bilateral hips were obtained. COMPARISON: Comparison is made with prior study dated March 31, 2016. FINDINGS: Lumbar Spine (L1-L4): g/cm2 (1.164) / T-score (0.0) / Z-score (1.7) Findings are suggestive of normal bone density with a low fracture risk. Left Femur Total: g/cm2 (1.018) / T-score (0.1) / Z-score (1.8) Left Femoral Neck: g/cm2 (0.991) / T-score (-0.3) / Z- score (1.5) Right Femur Total: g/cm2 (1.019) / T-score (0.1) / Z- score (1.8) Right Femoral Neck: g/cm2 (0.981) / T-score (-0.4) / Z-score (1.5) The T-Scores on the most recent prior examination were: Lumbar Spine (L1-L4): There has been improvement of bone density since the previous examination. Left Femur Total: which represents a worsening of 2.3%. Right Femur Total: which represents a worsening of 1.5%. BD/Dexa Bone Density Study IMPRESSION: The patient is considered normal as outlined below according to World Wayne Organization (WHO) criteria with a low fracture risk. There has been worsening of bone density since the previous examination. Reference Information: The T-score is the number of standard deviations above or below the standard which is normal for young adults at their peak bone mineral density. The World Health Organization (WHO) interprets the T-scores as follows: Above -1 Normal bone density Between -1 and -2.5 Osteopenia Equal to / or below -2.5 Osteoporosis As a practical clinical guideline, osteopenia may be graded as follows: Mild -1 through -1.5 Moderate -1.6 through -2.0 Severe -2.1 through -2.4 The Z-score is the number of standard deviations above or below age-matched controls. A Z-score of less than -1.5 would be considered abnormal. References: 1. NIH Osteoporosis and Related Bone Diseases http://www.osteo.org 2. International Society for Clinical Densitometry http://www.iscd.org 3. National Osteoporosis Foundation http://www.nof.org Electronically Signed: Renny Bell MD at 9:53 EDT Tel [phone], Service support , CC: Berta Sofia MD Flight Control Tower Operator: Signed PLASTIC SURGERY Observed: 03/11/2018 Status: F Source: [place] VISIT REPORT 11:44 AM [facility] REPOSITORY [facility] [address] [place] [address] OFFICE VISIT Date of Service: 12/30/17 MR#: [id number] Acct: [id number] Name: BRANDI SWEENEY Rep #: [id number] : 1945 Provider: Macho Diamond MD Age/Sex: 72/F Location: [facility] Status: Signed Intake Vital Signs12/30/17 Height 5 ft 3 in 12/30/17 Weight: 155 lb 4 oz Intake Visit Reasons: Consult, evaluation bilateral lower eyelid swelling Steamfitter Required: No Accompanied by: None Is patient in pain?: No Allergies No Known Allergies Allergy (Verified 02/18/18 10:07) Medications acetaminophen 325 mg tablet 500 mg PO Q4H PRN 07/19/17 [History Confirmed 02/18/18] zeowk-l-xqooyoenniqad 300 unit disintegrating tablet 300 unit PO TID PRN 07/19/17 [History Confirmed 02/18/18] aspirin 81 mg tablet,delayed release 81 mg PO QDAY 07/19/17 [History Confirmed 02/18/18] ferrous sulfate 325 mg (65 mg iron) tablet PO 07/19/17 [History Confirmed 02/18/18] lisinopril 10 mg tablet 10 mg PO QDAY 07/19/17 [History Confirmed 02/18/18] prednisolone sodium phosphate 10 mg/5 mL oral solution 5 mg PO ONCE 07/19/17 [History Confirmed 02/18/18] albuterol sulfate HFA 90 mcg/actuation aerosol inhaler 2 puff INHALATION Q4H #1 inh 08/03/17 [Rx Confirmed 02/18/18] calcium carbonat and lactate 200 mg calcium-vitamin D3 250 unit tablet 2 tab PO HS 08/20/17 [History Confirmed 02/18/18] simvastatin 10 mg tablet 10 mg PO QPM 08/20/17 [History Confirmed 02/18/18] omeprazole 20 mg capsule,delayed release 20 mg PO QDAY #90 cap 09/29/17 [Rx Confirmed 02/18/18] hydroxychloroquine 200 mg tablet 200 mg PO QDAY 10/26/17 [History Confirmed 02/18/18] risedronate 150 mg tablet 150 mg PO QMONTH 10/26/17 [History Confirmed 02/18/18] amlodipine 5 mg tablet 5 mg PO QDAY #90 tab 12/21/17 [Rx Confirmed 02/18/18] sertraline 50 mg tablet 50 mg PO QDAY #90 tab 02/18/18 [Rx Confirmed 02/18/18] gabapentin 100 mg capsule 100 mg PO QHS #60 cap 02/22/18 [Rx] Is last menstrual period known: No Post menopausal: Yes Patient : No Nurse's Note: UNDER BOTH OF HER EYES SHE HAS BAGS THAT HAVE A BURNING FEELING WHEN TOUCHED [facility] Medical History Osteoporosis (Chronic) Hypertension (Chronic) YOUNG (obstructive sleep apnea) (Chronic) SOB (shortness of breath) (Chronic) Anemia (Chronic) Hyperlipidemia (Chronic) Rheumatoid arthritis (Chronic) Snoring (Chronic) GERD (gastroesophageal reflux disease) (Chronic) Nicotine dependence in remission (Chronic) Anxiety associated with depression (Chronic) Dyspnea on exertion (Chronic) Bone fracture (Acute) Cataracts, bilateral (Acute) Chronic bronchitis (Acute) Gastrointestinal problem (Acute) Hearing problem (Acute) IBS (irritable bowel syndrome) (Acute) Obstructive sleep apnea (Chronic) Surgical History History of tubal ligation (Resolved) Hx of LASIK (Resolved) history of mastoids in ear (Resolved) History of colon surgery (Resolved) Family History Mother , 75 years Cancer Liver cancer and stomach Angina at rest Anxiety History of blood transfusion Diabetes Hypertension High cholesterol Liver disease Father , 60 years Heart disease [place] Angina at rest High cholesterol Brother Heart disease Sister Asthma A CHILD Depression Colon cancer Multiple allergies Social History adopted: No housing: house current occupational status: previously employed current occupational exposures/hazards: No pets and animals: Yes pets and animals: dog(s), cat(s) Smoking Status: Former smoker quit date: 01/24/99 pack-years: 40 how long ago did patient quit smokin second hand exposure: No alcohol intake: never substance use type: does not use caffeine: Yes (3/day) additional social history: USES ASPIRIN HPI Consult: Details: HISTORY OF PRESENT ILLNESS 72 year old woman presents with concerns about bilateral lower eyelid swelling and redness that have worsened over the last several months. She states she started using a CPAP machine last year, and the machine puts pressure on her cheek right where her symptomatology is. She denies any fever. She denies any drainage or recent infection. She denies any trauma but there is pressure from the CPAP machine. She presents at this time for further evaluation and treatment. REVIEW OF SYSTEMS General - Denies fever, fatigue, and weight loss. Eyes - Denies cataracts and glaucoma. ENT - Denies nasal congestion and sore throat. Endocrine - Denies excessive thirst and urination. Skin - Denies suspicious lesions and skin cancer. Has redness and swelling bilateral lower eyelids. Musculoskeletal - Has joint pain, joint stiffness, back pain, and arthritis. Neuro - Denies headaches. Cardiovascular - Denies chest pain, fatigue, and shortness of breath with exertion. Psych - Denies anxiety, Has depression. Respiratory - Has chronic cough and sleep apnea. Denies shortness of breath. Gastrointestinal - Denies nausea, vomiting, diarrhea. Has constipation. Hematologic - Denies abnormal bruising and bleeding. Has anemia. Genitourinary - Denies hematuria and urinary frequency. Has incontinence. PHYSICAL EXAM General - Alert and Oriented HEENT - PERRL. EOMI. Throat is clear. Mild dermatochalasis present. Swelling present with some fat herniation with presence of festoon. Mild erythema present in the skin crease where the CPAP machine presses on the face. No ectropion present. No scleral show present. Mild laxity in the lower eyelid. Areas are nontender. Neck - Supple and nontender. No cervical adenopathy. Lungs - Clear to auscultation. Heart - Regular rate and rhythm. Abdomen - Soft and nondistended. Extremities - FROM. No axillary adenopathy. Radial pulses are palpable. Neuro - CN II-XII grossly intact. Psych - Normal mood and affect. ASSESSMENT 1. Dermatochalasis bilateral lower eyelids. 2. Swelling bilateral lower eyelids. 3. Sleep apnea with the use of a CPAP machine. PLAN Discussed with the patient about various procedures to help her symptomatology. Can resuspend the lower eyelid fat pad and remove some of the herniated fat. A small amount of skin can be excised in the lower eyelid with a blepharoplasty. With her mild laxity in the lower eyelid, if a blepharoplasty is done, she would benefit from a canthoplasty or lateral tarsal strip procedure to minimize lower eyelid distortion or ectropion postoperatively. Some of the redness on the skin can be secondary to pressure from the CPAP machine. Other possibilities for the erythema could be rosacea. She can followup with a Account Officer for that evaluation. Told her that ultimately any surgical procedure may not be beneficial if it is the CPAP machine that is causing the persistent redness and swelling. She will think about it and let me know if she wants to proceed. If she does want to proceed, the procedures may or may not be covered by Medicare. A waiver would need to be signed preoperatively. After the surgery, if Medicare denies coverage, then she would be financially responsible. She is aware of that possibility and will think about whether she wants to proceed with the surgery. Assessment AND Plan Problems 1. Dermatochalasis of left lower eyelid H02.835 2. Dermatochalasis of right lower eyelid H02.832 3. Swelling of left lower eyelid H02.845 4. Swelling of right lower eyelid H02.842 5. YOUNG (obstructive sleep apnea) G47.33 Coding Level of Care Code Off vis,new,level 4 Diagnoses Dermatochalasis of left lower eyelid H02.835 Dermatochalasis of right lower eyelid H02.832 Swelling of left lower eyelid H02.845 Swelling of right lower eyelid H02.842 YOUNG (obstructive sleep apnea) G47.33 03/11/18 1144 <Electronically signed by Macho Diamond MD> Date Macho Diamond MD Cosigner Signature: Date (if applicable) CC: Berta Sofia MD INTERNAL MEDICINE Observed: 02/18/2018 Status: F Source: [place] OFFICE VISIT 4:20 PM [facility] Internal Medicine [address] [place] [address] [place] [address] OFFICE VISIT Date of Service: 02/18/18 MR#: [id number] Acct: [id number] Name: BRANDI SWEENEY Rep #: [id number] : 1945 Provider: Berta Sofia MD Age/Sex: 72/F Location: [facility] Status: Signed Intake Vital Signs02/18/18 Height 5 ft 3 in 02/18/18 Weight: 151 lb 02/18/18 Body Mass Index (BMI) 26.7 02/18/18 Blood Pressure 145/87 Intake Visit Reasons: 3 M FU Chief Complaint: 3 Mo follow-up visit Is patient in pain?: No Allergies No Known Allergies Allergy (Verified 02/18/18 10:07) Medications acetaminophen 325 mg tablet 500 mg PO Q4H PRN 07/19/17 [History Confirmed 02/18/18] hwyxv-g-ytgapgjpjnkby 300 unit disintegrating tablet 300 unit PO TID PRN 07/19/17 [History Confirmed 02/18/18] aspirin 81 mg tablet,delayed release 81 mg PO QDAY 07/19/17 [History Confirmed 02/18/18] ferrous sulfate 325 mg (65 mg iron) tablet PO 07/19/17 [History Confirmed 02/18/18] lisinopril 10 mg tablet 10 mg PO QDAY 07/19/17 [History Confirmed 02/18/18] prednisolone sodium phosphate 10 mg/5 mL oral solution 5 mg PO ONCE 07/19/17 [History Confirmed 02/18/18] albuterol sulfate HFA 90 mcg/actuation aerosol inhaler 2 puff INHALATION Q4H #1 inh 08/03/17 [Rx Confirmed 02/18/18] calcium carbonat and lactate 200 mg calcium-vitamin D3 250 unit tablet 2 tab PO HS 08/20/17 [History Confirmed 02/18/18] simvastatin 10 mg tablet 10 mg PO QPM 08/20/17 [History Confirmed 02/18/18] omeprazole 20 mg capsule,delayed release 20 mg PO QDAY #90 cap 09/29/17 [Rx Confirmed 02/18/18] hydroxychloroquine 200 mg tablet 200 mg PO QDAY 10/26/17 [History Confirmed 02/18/18] risedronate 150 mg tablet 150 mg PO QMONTH 10/26/17 [History Confirmed 02/18/18] gabapentin 100 mg capsule 100 mg PO QHS #60 cap 11/22/17 [Rx Confirmed 02/18/18] amlodipine 5 mg tablet 5 mg PO QDAY #90 tab 12/21/17 [Rx Confirmed 02/18/18] sertraline 50 mg tablet 50 mg PO QDAY #90 tab 02/18/18 [Rx Confirmed 02/18/18] [facility] Medical History Osteoporosis (Chronic) Hypertension (Chronic) YOUNG (obstructive sleep apnea) (Chronic) SOB (shortness of breath) (Chronic) Anemia (Chronic) Hyperlipidemia (Chronic) Rheumatoid arthritis (Chronic) Snoring (Chronic) GERD (gastroesophageal reflux disease) (Chronic) Nicotine dependence in remission (Chronic) Anxiety associated with depression (Chronic) Dyspnea on exertion (Chronic) Bone fracture (Acute) Cataracts, bilateral (Acute) Chronic bronchitis (Acute) Gastrointestinal problem (Acute) Hearing problem (Acute) IBS (irritable bowel syndrome) (Acute) Obstructive sleep apnea (Chronic) Surgical History History of tubal ligation (Resolved) Hx of LASIK (Resolved) history of mastoids in ear (Resolved) History of colon surgery (Resolved) Family History Mother , 75 years Cancer Liver cancer and stomach Angina at rest Anxiety History of blood transfusion Diabetes Hypertension High cholesterol Liver disease Father , 60 years Heart disease [place] Angina at rest High cholesterol Brother Heart disease Sister Asthma A CHILD Depression Colon cancer Multiple allergies Brother Pancreatic cancer Social History adopted: No housing: house current occupational status: previously employed current occupational exposures/hazards: No pets and animals: Yes pets and animals: dog(s), cat(s) Smoking Status: Former smoker quit date: 01/24/99 pack-years: 40 how long ago did patient quit smokin second hand exposure: No alcohol intake: never substance use type: does not use caffeine: Yes (3/day) additional social history: USES ASPIRIN HPI HPI Chief Complaint: 3 Mo follow-up visit Details: BRANDI SWEENEY, is a 72yo F who presents to the office today for follow-up of her chronic medical conditions. She has no acute complaints at this time. She is not due for her mammogram and bone density. ROS Const Constitutional: No chills, fatigue, fever(s), frequent falls, malaise, weakness, sleep problems or change in appetite Eyes Eyes: No blurry vision, change in vision, double vision, discharge or visual disturbances ENT ENT: No abnormal hearing, ear pain, ear pressure, tinnitus or dizziness/vertigo Resp Respiratory: No cough, shortness of breath or wheezing Cardio Cardiology: No chest pain at rest, chest pain with exertion, shortness of breath, dyspnea on exertion, generalized swelling, irregular heart rhythm, lightheadedness, orthopnea, fast heart rate or palpitations Gastro GI: No abdominal pain, change in bowel habits, constipation, diarrhea, nausea/dyspepsia or vomiting Genitourinary-Female: No difficulty urinating, burning urination, painful urination, urinary frequency, urinary urgency, urinary hesitancy, urinary retention, Frequent nighttime urination/ nocturia, sexual problems, genital lesions, abnormal vaginal bleeding, pelvic pain, vaginal dryness, vaginal odor or Vaginal Itching Musc Musculoskeletal: No joint pain, back pain, joint swelling, limited range of motion, numbness or tingling Skin Skin: No change in skin color, rash or wounds Breast Breast: No breast lump or breast pain Neuro Neurology: No frequent falls, weakness, abnormal hearing, numbness, tingling, unsteady gait/balance, dizziness, loss of vision, memory loss or visual disturbances Psych Psychiatric: No memory loss, No anxiety, No change in appetite, No depression, No Thoughts of harming yourself/Others Endo Endocrine: No fatigue, heat intolerance, increased thirst/drinking, increased hunger or increased urination Aller/Imm Allergy/Immunologic: No wheezing or seasonal allergy symptoms Nathan/Lymp Hematologic/Lymphatic: No easy bleeding, easy bruising or enlarged lymph nodes Exam Const General: cooperative, no acute distress Orientation: alert, awake, oriented x3 HENNY Head: atraumatic, normocephalic Ears: hearing grossly normal bilaterally Resp Effort AND Inspection: normal respiratory effort, able to speak in complete sentences Auscultation: Bilateral: Clear to Auscultation Cardio Rate: regular rate Rhythm: regular rhythm Heart Sounds: S1 normal, S2 normal GI Palpation: soft, no hepatosplenomegaly Other: Right flank tenderness. Neuro General: alert, awake, oriented x3, moves all extremities, CN's II-XI intact bilaterally Extrem General: no clubbing, cyanosis or edema Psych Appearance: grossly normal Mood: congruent mood Affect: normal affect Assessment AND Plan 1. Hypertension I10 Plan Mildly elevated at this time. Dietary and lifestyle modifications again discussed. No changes to her medications at this time. We will follow. Orders Orders: 2. Hyperlipidemia E78.5 Plan Stable. Continue current medications and lifestyle modifications. Lipid profile in 3 months. 3. Osteoporosis M81.0 Plan Currently on risedronate. DEXA scan ordered. Continue calcium and vitamin D daily. Orders Orders: 4. Healthcare maintenance Z00.00 Plan Screening mammogram ordered. This note was generated with [employer] software. It may contain incorrect words, spelling, and punctuation that were not noted in checking the note before signing. Plan Detail Other Orders Orders: Other Medications Refilled: Follow Up 3 Months Coding Level of Care Code Off vis,est,level 4 Diagnoses Hypertension I10 Hyperlipidemia E78.5 Osteoporosis M81.0 Healthcare maintenance Z00.00 02/18/18 1620 <Electronically signed by Berta Sofia MD> Date Berta Sofia MD Cosigner Signature: Date (if applicable) CC: SYNOVIAL FLUID RBC, Collected: 02/16/2018 Status: F Source: [facility] WBC AND DIFF 11:12 AM [facility] REPOSITORY TYPE CODE TESTS RESULT OUT OF RANGE REFERENCE UNITS LAB L200.5050 0.000-0.000 10 3 uL High SYN Tot 0.[address] Result Comment: This is the Total Number of Nucleated Cell Types in the Body Fluid. LAB L200.5100 0 /mm3 SYNOVIAL High RBC 5222 Result Comment: AMENDED REPORT 02/16/18 1631 SYNOVIAL RBC previously reported as: 0.007 H 10^6/uL LAB L200.5200 0 /mm3 SYNOVIAL High WBC 411 Result Comment: AMENDED REPORT 02/16/18 1631 SYNOVIAL WBC previously reported as: 0.4040 H 10^3uL LAB L200.5260 % SYBF PMN Normal WBC% 16.1 LAB L200.5270 10 3/ul SYBF PMN Normal WBC# 0.065 LAB L200.5280 % SYBF MN Normal WBC% 83.9 LAB L200.5800 PATH Normal COM/SYFL May follow LAB L200.4800 HIGH Normal VISCOSITY/SYFL Mod. Viscous LAB L200.4900 Pale Yellow SYNOVIAL Normal COLOR Yellow LAB L200.5000 CLEAR SYNOVIAL Normal SARAH. Cloudy LAB L200.5300 0-25 % Normal NEUTROPHIL 15 LAB L200.5400 % LYMPH Normal 51 LAB L200.5500 % MONO Normal 21 LAB L200.5700 % OTHER Normal CELL /SYN 13 Performed By: #### L200.0400, L200.4175 #### [facility] [address] [place], [place], [address] CRYSTALS, BODY FLUID Collected: 02/16/2018 Status: C Source: [place] 11:12 AM [facility] REPOSITORY TYPE CODE TESTS RESULT OUT OF RANGE REFERENCE UNITS LAB L200.4200 Normal NONE SEEN CRYSTALS/BF LAB L200.4225 Normal SYNOVIAL SOURCE/BF LAB L200.6020 Normal PATH Reviewed REV Result Comment: Negative for malignant cells and crystals. Prabhakar Machado M.D. 02/17/18 AMENDED REPORT 02/17/18 1146 PATH REV previously reported as: Will follow Performed By: #### L200.0400, L200.4175 #### [facility] [address] [place], [address] Observed: 02/16/2018 Status: F Source: [place] CULTURE, BODY FLUID 11:12 AM [facility] REPOSITORY List Antibiotics Last 48 Hours? . List Antibiotics to be Started? . Comments: SYNOVIAL FLUID RIGHT KNEE. Gram Stain Centrifuged Specimen? Culture performed on centrifuged specimen Gram Stain 4+ Red Blood Cells 1+ White Blood Cells No organisms seen Body Fluid Cult NO GROWTH IN 14 DAYS Cult, Anaerobic No growth in 5 days. Performed By: #### M100.1300 #### [facility] [address] [facility] [place], [place], [address] CBC W/DIFF, AUTOMATED Collected: 02/01/2018 Status: F Source: [place] 3:43 PM [facility] REPOSITORY TYPE CODE TESTS RESULT OUT OF RANGE REFERENCE UNITS LAB L100.1000 4.4-11.0 K/mm3 Normal WBC 6.4 LAB L100.1200 4.2-5.4 M/mm3 Normal RBC 4.96 LAB L100.1300 12.0-15.0 g/dl Normal HGB 14.1 LAB L100.1400 37-47 % Normal HCT 41.7 LAB L100.1500 81-99 fL Normal MCV 84.1 LAB L100.1600 27.0-32.0 pg Normal MCH 28.4 LAB L100.1700 32-36 g/gl Normal MCHC 33.8 LAB L100.1810 11.6-14.6 % Normal RDW CV 13.7 LAB L100.1820 35.1-43.9 fl Normal RDW SD 41.5 LAB L100.1900 150-450 K/mm3 Normal PLT 214 LAB L100.2000 6.2-12.0 fl Normal MPV 9.0 LAB L100.2100 47-70 % High NEUT% 81.8 LAB L100.2200 19-41 % Low LY% 13.4 LAB L100.2300 0-10 % Normal MONO% 2.7 LAB L100.2400 0-5 % Normal EO% 1.6 LAB L100.2500 0-1 % Normal BASO% 0.5 LAB L100.2550 0.0-0.9 % Normal IM GRAN % 0.000 Result Comment: IG% - Immature Granulocytes (promyelocytes, myelocytes and metamyelocytes) > 1% indicates that a LEFT SHIFT is Present. LAB L100.2620 2.0-7.7 X10 3/uL Normal Absolute Neut 5.2 LAB L100.2720 0.83-4.51 X10 3/ul Normal Absolute Lymph 0.85 Performed By: #### L100.0100 #### [facility] [address] [place], [address] COMPREHENSIVE METABOLIC Collected: 02/01/2018 Status: F Source: [place] [facility] 3:43 PM [facility] REPOSITORY TYPE CODE TESTS RESULT OUT OF RANGE REFERENCE UNITS LAB L501.0100 74-106 mg/dL High GLU 120 Result Comment: Fasting Glucose result from 100 to 125 mg/dL suggests IMPAIRED HOMEOSTASIS per A.D.A. criteria. Please note revised GLUCOSE reference range effective 2017. LAB L501.1000 7-18 mg/dL Normal BUN 15 LAB L501.1100 0.55-1.02 mg/dL Normal CREAT,SERUM 0.87 Result Comment: The validity of the calculated GFR AND GFRAA in patients over 70 years has not been determined. Clinical correlation is essential. LAB L501.1110 >60 mL/min Normal EST GFR 68 Result Comment: Non- GFR Calc LAB L501.1115 >60 mL/min Normal EST GFR - AA 82 Result Comment: GFR Calc LAB L501.1300 10-20 RATIO Normal BUN/CRE 17.2 LAB L501.1500 6.4-8.2 g/dL T Normal PROT 7.5 LAB L501.1800 3.2-5.0 g/dL Normal ALB 3.8 LAB L501.1950 2.2-4.2 g/dL Normal GLOB 3.7 LAB L501.2000 0.9-2.4 RATIO Normal A/G 1.0 LAB L501.2200 8.5-10.1 mg/dL CA Normal 9.1 LAB L501.4100 15-37 U/L Normal AST 31 LAB L501.4305 45-117 U/L Normal ALK P 47 LAB L501.4405 13-56 U/L Normal ALT 42 LAB L501.4600 0.20-1.00 mg/dL T Normal BILI 0.70 LAB L501.5300 136-145 mmol/L NA Normal 141 LAB L501.5600 3.5-5.1 mmol/L K Normal 4.0 LAB L501.5900 98-107 mmol/L CL Normal 106 LAB L501.6100 21.0-32.0 mmol/L Normal CO2 27.0 LAB L501.6200 5-15 Normal GAP 8 Performed By: #### L500.4050 #### [facility] [address] [place], [place], [id number] PULMONARY VISIT REPORT Observed: 01/26/2018 Status: F Source: [place] 4:38 PM [facility] REPOSITORY [facility] [address] [place] [address] OFFICE VISIT Date of Service: 01/26/18 MR#: [id number] Acct: [id number] Name: BRANDI SWEENEY Rep #: [id number] : 1945 Provider: Maisha Vann Age/Sex: 72/F Location: [facility] Status: Signed Assessment AND Plan 1. YOUNG (obstructive sleep apnea) G47.33 Plan Stable. Advised to speak with commercial representative from [employer] company regarding mask fit and problems with leaks. Encouraged ongoing compliance with BiPAP. To f/u as already scheduled in September 2018, will have repeat PFT done at that time. She is using and benefiting from current BiPAP settings. No indication for titration study at this time. HPI Having trouble with her CPAP pressure: Chief Complaint: BiPAP leaks HPI Comments Details: This is a 72 year old pleasant f, here to follow up for sleep apnea. BRANDI denies any daytime somnolence, dry mouth in the morning, nocturia, snoring through the mask, morning headaches difficulty with mask leaks. BRANDI reports feeling well-rested in the morning and is benefitting from current therapy. Compliance report was reviewed and shows 100% compliance. Current use of pressure support therapy is on average of 7 hours 36 minutes per night with current settings of 16/12 cmH2O. Intake Vital Signs01/26/18 Height 5 ft 3 in 01/26/18 Weight: 157 lb Intake Visit Reasons: Having trouble with her CPAP pressure Steamfitter Required: No [employer] Vendor: [employer] Accompanied by: Self Is patient in pain?: No Allergies No Known Allergies Allergy (Verified 01/26/18 14:17) Medications acetaminophen 325 mg tablet 500 mg PO Q4H PRN 07/19/17 [History Confirmed 01/26/18] oukfu-x-vsbbhlmobaaad 300 unit disintegrating tablet 300 unit PO TID PRN 07/19/17 [History Confirmed 01/26/18] aspirin 81 mg tablet,delayed release 81 mg PO QDAY 07/19/17 [History Confirmed 01/26/18] ferrous sulfate 325 mg (65 mg iron) tablet PO 07/19/17 [History Confirmed 01/26/18] lisinopril 10 mg tablet 10 mg PO QDAY 07/19/17 [History Confirmed 01/26/18] prednisolone sodium phosphate 10 mg/5 mL oral solution 5 mg PO ONCE 07/19/17 [History Confirmed 01/26/18] albuterol sulfate HFA 90 mcg/actuation aerosol inhaler 2 puff INHALATION Q4H #1 inh 08/03/17 [Rx Confirmed 01/26/18] calcium carbonat and lactate 200 mg calcium-vitamin D3 250 unit tablet 2 tab PO HS 08/20/17 [History Confirmed 01/26/18] simvastatin 10 mg tablet 10 mg PO QPM 08/20/17 [History Confirmed 01/26/18] omeprazole 20 mg capsule,delayed release 20 mg PO QDAY #90 cap 09/29/17 [Rx Confirmed 01/26/18] sertraline 50 mg tablet 50 mg PO QDAY #90 tab 10/01/17 [Rx Confirmed 01/26/18] hydroxychloroquine 200 mg tablet 200 mg PO QDAY 10/26/17 [History Confirmed 01/26/18] risedronate 150 mg tablet 150 mg PO QMONTH 10/26/17 [History Confirmed 01/26/18] gabapentin 100 mg capsule 100 mg PO QHS #60 cap 11/22/17 [Rx Confirmed 01/26/18] amlodipine 5 mg tablet 5 mg PO QDAY #90 tab 12/21/17 [Rx Confirmed 01/26/18] ciprofloxacin 500 mg tablet 500 mg PO Q12H #14 tab 12/24/17 [Rx Confirmed 01/26/18] PFSH Medical History Osteoporosis (Chronic) Hypertension (Chronic) YOUNG (obstructive sleep apnea) (Chronic) SOB (shortness of breath) (Chronic) Anemia (Chronic) Hyperlipidemia (Chronic) Rheumatoid arthritis (Chronic) Snoring (Chronic) GERD (gastroesophageal reflux disease) (Chronic) Nicotine dependence in remission (Chronic) Anxiety associated with depression (Chronic) Dyspnea on exertion (Chronic) Bone fracture (Acute) Cataracts, bilateral (Acute) Chronic bronchitis (Acute) Gastrointestinal problem (Acute) Hearing problem (Acute) IBS (irritable bowel syndrome) (Acute) Obstructive sleep apnea (Chronic) Surgical History History of tubal ligation (Resolved) Hx of LASIK (Resolved) history of mastoids in ear (Resolved) History of colon surgery (Resolved) Family History Mother , 75 years Cancer Liver cancer and stomach Angina at rest Anxiety History of blood transfusion Diabetes Hypertension High cholesterol Liver disease Father , 60 years Heart disease [place] Angina at rest High cholesterol Brother Heart disease Sister Asthma A CHILD Depression Colon cancer Multiple allergies Brother Pancreatic cancer Social History adopted: No housing: house current occupational status: previously employed current occupational exposures/hazards: No pets and animals: Yes pets and animals: dog(s), cat(s) Smoking Status: Former smoker quit date: 01/24/99 pack-years: 40 how long ago did patient quit smokin second hand exposure: No alcohol intake: never substance use type: does not use caffeine: Yes (3/day) additional social history: USES ASPIRIN Review of Systems Const CONSTITUTIONAL: Positive fatigue; negative anorexia, body ache, chills, daytime sleepiness, fever(s), night sweats, oral thrush, stops breathing during sleep, weight loss, sleeping in chair, weight loss, weight gain, frequent colds, seasonal allergies, other, headache(s) or orthopnea EETM Ear Nose Throat Mouth: Positive hearing normal (with aides present); negative hard of hearing, hoarseness, dry mouth in morning, change in vision, itchy eyes, eye pain, swallowing Difficulty, ear pain, nose bleed, headache(s), mouth pain, nasal congestion, nasal discharge, post nasal drip, sinus pain, sinus pressure, sore throat or other Cardio Cardiovascular: Negative chest pain, chest pain at rest, chest pain with activity, irregular heart rhythm, edema, shortness of breath when lying down, palpitations, murmur or other Resp Respiratory: Positive as per HPI; negative shortness of breath, pain with cough, wheezing, chest congestion, cough, chest tightness, pain on inspiration, inhalers, increase use of rescue inhalers, snoring, apnea or other Gastro Gastrointestional: Negative bloody stools, change in appetite, difficulty swallowing, reflux, hematemesis, melena stool, loose stool, constipation or other Genitourinary: Negative blood in urine, nocturia, pain with urination or other Musc Musculoskeletal: Negative body pain, back pain, neck pain or other Skin/Breast Skin/Breast: Negative dry skin, itching, rash, unusual bruising, breast lump or other Neuro Neurological: Negative restless legs, confusion, weakness or other Psych Psychocological: Negative abnormal sleep pattern, anxiety, thoughts of hurting self/others, hopelessness or other Lymph Lymphatic: Negative easy bleeding, easy bruising, swollen lymph nodes or other Exam Const Constitutional: Positive conversant, cooperative, in no acute respiratory distress, healthy appearing, well developed, well nourished and good hygiene Head Head: Positive normocephalic and atraumatic; negative cyanosis of lips/distal nose Eyes Eye: Positive clear conjunctiva and nystagmus; negative scleral abnormality Ears Ear: Positive hearing normal (with aides present); negative hard of hearing Nose Nose: Positive external nose normal; negative epistaxis Mouth Mouth: Positive oral mucosae normal; negative post nasal drip Mallampati Score: I: Mallampati Score Neck Neck: Positive normal visual inspection, full ROM and trachea midline; negative lymphadenopathy, JVD or tender Chest Wall Chest: Positive normal inspection of the chest and symmetric chest movement; negative increased A/P diameter Resp lung sounds: Positive clear to auscultation, good air exchange, normal expiratory time and normal respiratory effort; negative diminished, wheezes, rhonchi, rales, dullness to percussion or wheeze present on forced exhalation Cardio Cardiac: Positive regular rate, regular rhythm, S1 normal and S2 normal; negative murmur GI GI: Positive normal to inspection and normal bowel sounds; negative distended Genitourinary: Positive deferred Musc Musculoskeletal: Positive steady gait and ROM normal; negative kyphosis or scoliosis Skin Pulmonary Skin Exam: Positive intact; negative rash Pulses Pulse: Yes radial pulses present Extremities Extremities: Yes capillary refill normal Neuro Neurologic: Yes conversant, Yes no focal neuro deficits, Yes cooperative, Yes normal cognition, Yes normal coordination, Yes normal concentration, Yes understands questions Lymph Lymphatic: No lymphadenopathy Psych Appearance: Positive grossly normal, eye contact and well kempt Mental Status: Positive mental status grossly normal Mood: Positive congruent mood Affect: Positive normal affect and animated Coding Level of Care Code Off vis,est,level 3 Diagnoses YOUNG (obstructive sleep apnea) G47.33 01/26/18 1278 <Electronically signed by Maisha WILSON> Date Maisha WILSON Cosigner Signature: Date (if applicable) CC: Berta Sofia MD INTERNAL MEDICINE Observed: 12/24/2017 Status: F Source: [facility] OFFICE VISIT 4:31 PM [facility] Internal Medicine [address] [place] [address] [place] [address] OFFICE VISIT Date of Service: 12/24/17 MR#: [id number] Acct: [id number] Name: BRANDI SWEENEY Carissa Rep #: [id number] : 1945 Provider: Berta Sofia MD Age/Sex: 72/F Location: [facility] Status: Signed Intake Vital Signs12/24/17 Height 5 ft 3 in 12/24/17 Weight: 155 lb 12/24/17 Body Mass Index (BMI) 27.4 12/24/17 Blood Pressure 137/76 Intake Visit Reasons: UNABLE TO URINATE Chief Complaint: Problem urinating AND back pain Rt side Is patient in pain?: Yes (Rt back) Pain scale (1-10): 3 Allergies No Known Allergies Allergy (Verified 12/24/17 10:57) Medications acetaminophen 325 mg tablet 500 mg PO Q4H PRN 07/19/17 [History Confirmed 12/24/17] lkskj-k-dashumxymryud 300 unit disintegrating tablet 300 unit PO TID PRN 07/19/17 [History Confirmed 12/24/17] aspirin 81 mg tablet,delayed release 81 mg PO QDAY 07/19/17 [History Confirmed 12/24/17] ferrous sulfate 325 mg (65 mg iron) tablet PO 07/19/17 [History Confirmed 12/24/17] lisinopril 10 mg tablet 10 mg PO QDAY 07/19/17 [History Confirmed 12/24/17] prednisolone sodium phosphate 10 mg/5 mL oral solution 5 mg PO ONCE 07/19/17 [History Confirmed 12/24/17] albuterol sulfate HFA 90 mcg/actuation aerosol inhaler 2 puff INHALATION Q4H #1 inh 08/03/17 [Rx Confirmed 12/24/17] calcium carbonat and lactate 200 mg calcium-vitamin D3 250 unit tablet 2 tab PO HS 08/20/17 [History Confirmed 12/24/17] simvastatin 10 mg tablet 10 mg PO QPM 08/20/17 [History Confirmed 12/24/17] omeprazole 20 mg capsule,delayed release 20 mg PO QDAY #90 cap 09/29/17 [Rx Confirmed 12/24/17] sertraline 50 mg tablet 50 mg PO QDAY #90 tab 10/01/17 [Rx Confirmed 12/24/17] hydroxychloroquine 200 mg tablet 200 mg PO QDAY 10/26/17 [History Confirmed 12/24/17] risedronate 150 mg tablet 150 mg PO QMONTH 10/26/17 [History Confirmed 12/24/17] gabapentin 100 mg capsule 100 mg PO QHS #60 cap 11/22/17 [Rx Confirmed 12/24/17] amlodipine 5 mg tablet 5 mg PO QDAY #90 tab 12/21/17 [Rx Confirmed 12/24/17] PFSH Medical History Osteoporosis (Chronic) Hypertension (Chronic) YOUNG (obstructive sleep apnea) (Chronic) SOB (shortness of breath) (Chronic) Anemia (Chronic) Hyperlipidemia (Chronic) Rheumatoid arthritis (Chronic) Snoring (Chronic) GERD (gastroesophageal reflux disease) (Chronic) Nicotine dependence in remission (Chronic) Anxiety associated with depression (Chronic) Dyspnea on exertion (Chronic) Bone fracture (Acute) Cataracts, bilateral (Acute) Chronic bronchitis (Acute) Gastrointestinal problem (Acute) Hearing problem (Acute) IBS (irritable bowel syndrome) (Acute) Obstructive sleep apnea (Chronic) Surgical History History of tubal ligation (Resolved) Hx of LASIK (Resolved) history of mastoids in ear (Resolved) History of colon surgery (Resolved) Family History Mother , 75 years Cancer Liver cancer and stomach Angina at rest Anxiety History of blood transfusion Diabetes Hypertension High cholesterol Liver disease Father , 60 years Heart disease [place] Angina at rest High cholesterol Brother Heart disease Sister Asthma A CHILD Depression Colon cancer Multiple allergies Brother Pancreatic cancer Social History adopted: No housing: house current occupational status: previously employed current occupational exposures/hazards: No pets and animals: Yes pets and animals: dog(s), cat(s) Smoking Status: Former smoker quit date: 01/24/99 pack-years: 40 how long ago did patient quit smokin second hand exposure: No alcohol intake: never substance use type: does not use caffeine: Yes (3/day) additional social history: USES ASPIRIN HPI HPI Chief Complaint: Problem urinating AND back pain Rt side Details: BRANDI SWEENEY, is a 72yo F who presents to the office today due to complaints of incomplete emptying of the bladder, increased frequency of urination, flank pain, nausea and vomiting which has been ongoing for about 2 days. ROS Const Constitutional: No chills, fatigue, fever(s), frequent falls, malaise, weakness, sleep problems or change in appetite Eyes Eyes: No blurry vision, change in vision, double vision, discharge or visual disturbances ENT ENT: No abnormal hearing, ear pain, ear pressure, tinnitus or dizziness/vertigo Resp Respiratory: No cough, shortness of breath or wheezing Cardio Cardiology: No chest pain at rest, chest pain with exertion, shortness of breath, dyspnea on exertion, generalized swelling, irregular heart rhythm, lightheadedness, orthopnea, fast heart rate or palpitations Gastro GI: Positive for vomiting (started milky looking AND now bright yellow, AND also Dry Heaves); no abdominal pain, change in bowel habits, constipation, diarrhea or nausea/dyspepsia Genitourinary-Female: Positive for urinary urgency, urinary hesitancy and urinary retention; no difficulty urinating, burning urination, painful urination, urinary incontinence, urinary frequency, Frequent nighttime urination/ nocturia, sexual problems, genital lesions, abnormal vaginal bleeding, pelvic pain, vaginal dryness, vaginal odor or Vaginal Itching Musc Musculoskeletal: No joint pain, back pain, joint swelling, limited range of motion, numbness or tingling Skin Skin: No change in skin color, itching, rash or wounds Breast Breast: No breast lump or breast pain Neuro Neurology: No frequent falls, weakness, abnormal hearing, numbness, tingling, unsteady gait/balance, dizziness, loss of vision, memory loss or visual disturbances Psych Psychiatric: No memory loss, No anxiety, No change in appetite, No depression, No Thoughts of harming yourself/Others Endo Endocrine: No fatigue, heat intolerance, increased thirst/drinking, increased hunger or increased urination Aller/Imm Allergy/Immunologic: No wheezing, itchy eyes or seasonal allergy symptoms Nathan/Lymp Hematologic/Lymphatic: No easy bleeding, easy bruising or enlarged lymph nodes Exam Const General: cooperative, no acute distress Orientation: alert, awake, oriented x3 HENMT Head: atraumatic, normocephalic Ears: hearing grossly normal bilaterally Resp Effort AND Inspection: normal respiratory effort, able to speak in complete sentences Auscultation: Bilateral: Clear to Auscultation Cardio Rate: regular rate Rhythm: regular rhythm Heart Sounds: S1 normal, S2 normal GI Palpation: soft, no hepatosplenomegaly Other: Right flank tenderness. Neuro General: alert, awake, oriented x3, moves all extremities, CN's II-XI intact bilaterally Extrem General: no clubbing, cyanosis or edema Psych Appearance: grossly normal Mood: congruent mood Affect: normal affect Assessment AND Plan 1. UTI (urinary tract infection) N39.0 Plan Symptoms suggestive of possible UTI and ??? Pyelonephritis. Patient is otherwise doing well and denies loss of appetite or persistent fatigue. Vitals are stable. Urinalysis, BMP and CBC ordered. Antibiotics upon review. Patient advised to call or go to the ER if symptoms worsen. Orders Orders: Coding Level of Care Code Off vis,est,level 3 Diagnoses UTI (urinary tract infection) N39.0 12/24/17 1631 <Electronically signed by Berta Sofia MD> Date Berta Sofia MD Cosigner Signature: Date (if applicable) CC: CBC W/DIFF, AUTOMATED Collected: 12/24/2017 Status: F Source: [place] 11:43 AM [facility] REPOSITORY TYPE CODE TESTS RESULT OUT OF RANGE REFERENCE UNITS LAB L100.1000 4.4-11.0 K/mm3 Normal WBC 8.7 LAB L100.1200 4.2-5.4 M/mm3 Normal RBC 5.01 LAB L100.1300 12.0-15.0 g/dl Normal HGB 14.3 LAB L100.1400 37-47 % Normal HCT 42.0 LAB L100.1500 81-99 fL Normal MCV 83.8 LAB L100.1600 27.0-32.0 pg Normal MCH 28.5 LAB L100.1700 32-36 g/gl Normal MCHC 34.0 LAB L100.1810 11.6-14.6 % Normal RDW CV 13.9 LAB L100.1820 35.1-43.9 fl Normal RDW SD 41.9 LAB L100.1900 150-450 K/mm3 Normal PLT 266 LAB L100.2000 6.2-12.0 fl Normal MPV 8.8 LAB L100.2100 47-70 % Normal NEUT% 64.9 LAB L100.2200 19-41 % Normal LY% 24.1 LAB L100.2300 0-10 % Normal MONO% 7.1 LAB L100.2400 0-5 % Normal EO% 3.2 LAB L100.2500 0-1 % Normal BASO% 0.6 LAB L100.2550 0.0-0.9 % Normal IM GRAN % 0.100 Result Comment: IG% - Immature Granulocytes (promyelocytes, myelocytes and metamyelocytes) > 1% indicates that a LEFT SHIFT is Present. LAB L100.2620 2.0-7.7 X10 3/uL Normal Absolute Neut 5.6 LAB L100.2720 0.83-4.51 X10 3/ul Normal Absolute Lymph 2.09 Performed By: #### L100.0100 #### [facility] [address] [place], [address] URINALYSIS, COMPLETE Collected: 12/24/2017 Status: F Source: [place] 11:43 AM [facility] REPOSITORY Order Comment: Comments: With reflex culture Comments: With reflex culture How was Urine Obtained? CLINICAL APPLICATIONS SPECIALIST TO SPECIFY TYPE CODE TESTS RESULT OUT OF RANGE REFERENCE UNITS LAB L400.3000 Yellow COLOR Normal Yellow LAB L400.3050 Clear Normal CLARITY Sl. Cloudy LAB L400.3200 Normal mg/dl Normal GLUCOSE, UR Normal LAB L400.3300 Negative mg/dL Normal BILIRUBIN URINE Negative LAB L400.3400 Negative mg/dl Normal KETONE UR Negative LAB L400.3465 1.002-1.030 Normal SP.GR. DIPSTX 1.020 LAB L400.3550 5.0 - 8.0 pH UR Normal 5.0 LAB L400.3600 Negative mg/dl High PROT 15 DIPSTX LAB L400.3700 Normal mg/dl Normal UROBILI Normal LAB L400.3750 Negative Normal NITRITE UR Negative LAB L400.3780 Negative /ul High OCCULT BLOOD-UR 250 LAB L400.3800 Negative /ul High LEUK ESTERASE 500 LAB L400.4050 0-5 /hpf WBC Normal 0-5 SEEN LAB L400.4100 0-5 /hpf Normal RBC-UA 25-50 SEEN LAB L400.4150 5-10 /hpf SQUAM Normal EPI 0-5 SEEN LAB L400.4300 None Seen /hpf 0 Normal BACTERIA SEEN LAB L400.4350 <or=2+ /hpf 1+ Normal MUCUS, URINE LAB L400.4400 0-5 /lpf Normal HYALINE CAST 0-5 SEEN Performed By: #### L400.0001, L500.2500 #### [facility] [address] [facility] [place], [address] BASIC METABOLIC Collected: 12/24/2017 Status: F Source: [place] PROFILE (BMP) 11:43 AM [facility] REPOSITORY Order Comment: Comments: With reflex culture TYPE CODE TESTS RESULT OUT OF RANGE REFERENCE UNITS LAB L501.0100 74-106 mg/dL Normal GLU 74 Result Comment: Please note revised GLUCOSE reference range effective 2017. LAB L501.1000 7-18 mg/dL Normal BUN 14 LAB L501.1100 0.55-1.02 mg/dL Normal CREAT,SERUM 0.82 Result Comment: The validity of the calculated GFR AND GFRAA in patients over 70 years has not been determined. Clinical correlation is essential. LAB L501.1110 >60 mL/min Normal EST GFR 72 Result Comment: Non- GFR Calc LAB L501.1115 >60 mL/min Normal EST GFR - AA 88 Result Comment: GFR Calc LAB L501.1300 10-20 RATIO Normal BUN/CRE 17.1 LAB L501.2200 8.5-10.1 mg/dL CA Normal 8.8 LAB L501.5300 136-145 mmol/L NA Normal 141 LAB L501.5600 3.5-5.1 mmol/L Low K 3.3 LAB L501.5900 98-107 mmol/L CL Normal 106 LAB L501.6100 21.0-32.0 mmol/L Normal CO2 26.0 LAB L501.6200 5-15 Normal GAP 9 Performed By: #### L400.0001, L500.2500 #### [facility] [address] [place], [address] Observed: 12/24/2017 Status: F Source: [place] CULTURE, URINE 11:43 AM [facility] REPOSITORY Urine Culture ORGANISM 1: Mixed Gram Positive Organisms Mullin Count 1000-10,000 MIX CULTURE Mixed contaminants. Submit a new specimen if indicated. Performed By: #### M100.0650 #### [facility] [address] [facility] [address] INTERNAL MEDICINE Observed: 11/19/2017 Status: F Source: [place] OFFICE VISIT 12:30 PM [facility] REPOSITORY [facility] [address] [place] [address] [place] [address] OFFICE VISIT Date of Service: 11/19/17 MR#: [id number] Acct: [id number] Name: BRANDI SWEENEY Rep #: [id number] : 1945 Provider: Berta Sofia MD Age/Sex: 72/F Location: [facility] Status: Signed Intake Vital Signs11/19/17 Height 5 ft 3 in Intake Visit Reasons: 3 M FU Chief Complaint: follow-up visit Is patient in pain?: No Allergies No Known Allergies Allergy (Verified 10/26/17 13:35) Medications acetaminophen 325 mg tablet 500 mg PO Q4H PRN 07/19/17 [History Confirmed 10/26/17] pelam-x-irlzkcivswfii 300 unit disintegrating tablet 300 unit PO TID PRN 07/19/17 [History Confirmed 10/26/17] aspirin 81 mg tablet,delayed release 81 mg PO QDAY 07/19/17 [History Confirmed 10/26/17] ferrous sulfate 325 mg (65 mg iron) tablet PO 07/19/17 [History Confirmed 10/26/17] lisinopril 10 mg tablet 10 mg PO QDAY 07/19/17 [History Confirmed 10/26/17] prednisolone sodium phosphate 10 mg/5 mL oral solution 5 mg PO ONCE 07/19/17 [History Confirmed 10/26/17] albuterol sulfate HFA 90 mcg/actuation aerosol inhaler 2 puff INHALATION Q4H #1 inh 08/03/17 [Rx Confirmed 10/26/17] calcium carbonat and lactate 200 mg calcium-vitamin D3 250 unit tablet 2 tab PO HS 08/20/17 [History Confirmed 10/26/17] simvastatin 10 mg tablet 10 mg PO QPM 08/20/17 [History Confirmed 10/26/17] amlodipine 5 mg tablet 5 mg PO QDAY #90 tab 09/17/17 [Rx Confirmed 10/26/17] omeprazole 20 mg capsule,delayed release 20 mg PO QDAY #90 cap 09/29/17 [Rx Confirmed 10/26/17] sertraline 50 mg tablet 50 mg PO QDAY #90 tab 10/01/17 [Rx Confirmed 10/26/17] gabapentin 100 mg capsule 100 mg PO QHS #60 cap 10/26/17 [Rx] hydroxychloroquine 200 mg tablet 200 mg PO QDAY 10/26/17 [History Confirmed 10/26/17] risedronate 150 mg tablet 150 mg PO QMONTH 10/26/17 [History Confirmed 10/26/17] [facility] Medical History Osteoporosis (Chronic) Hypertension (Chronic) YOUNG (obstructive sleep apnea) (Chronic) SOB (shortness of breath) (Chronic) Anemia (Chronic) Hyperlipidemia (Chronic) Rheumatoid arthritis (Chronic) Snoring (Chronic) GERD (gastroesophageal reflux disease) (Chronic) Nicotine dependence in remission (Chronic) Anxiety associated with depression (Chronic) Dyspnea on exertion (Chronic) Bone fracture (Acute) Cataracts, bilateral (Acute) Chronic bronchitis (Acute) Gastrointestinal problem (Acute) Hearing problem (Acute) IBS (irritable bowel syndrome) (Acute) Obstructive sleep apnea (Chronic) Surgical History History of tubal ligation (Resolved) Hx of LASIK (Resolved) history of mastoids in ear (Resolved) History of colon surgery (Resolved) Family History Mother , 75 years Cancer Liver cancer and stomach Angina at rest Anxiety History of blood transfusion Diabetes Hypertension High cholesterol Liver disease Father , 60 years Heart disease [place] Angina at rest High cholesterol Brother Heart disease Sister Asthma A CHILD Depression Colon cancer Multiple allergies Social History adopted: No housing: house current occupational status: previously employed current occupational exposures/hazards: No pets and animals: Yes pets and animals: dog(s), cat(s) Smoking Status: Former smoker quit date: 01/24/99 pack-years: 40 how long ago did patient quit smokin second hand exposure: No alcohol intake: never substance use type: does not use caffeine: Yes (3/day) additional social history: USES ASPIRIN HPI HPI Chief Complaint: follow-up visit Details: BRANDI SWEENEY, is a 72yo F who presents to the office today for follow-up. Blood pressure is well controlled. She reports compliance with her medications. She also reports compliance with his CPAP and has not had any problems with restless legs or paroxysmal limb movements. She feels well rested when she wakes up. She however occasionally feels fatigued but denies hypersomnolence. Her appetite is good and she feels well otherwise. ROS Const Constitutional: Positive for fatigue; no weight change, body ache, chills, fever(s), change in appetite, snoring, weakness, frequent falls, headache(s) or excessive sweating Eyes Eyes: No change in vision, eye pain, light sensitivity or blurry vision ENT ENT: No headache(s), abnormal hearing, ear pain, tinnitus, nasal congestion, sore throat or neck pain Resp Respiratory: No snoring, cough, shortness of breath or wheezing Cardio Cardiology: No excessive sweating, chest pain at rest, chest pain with exertion, shortness of breath, dyspnea on exertion, palpitations, orthopnea or lightheadedness Gastro GI: No abdominal pain, change in bowel habits, constipation, diarrhea, vomiting, nausea/dyspepsia or cramping Genitourinary-Female: No burning urination, painful urination, urinary incontinence, urinary frequency, abnormal vaginal bleeding, pelvic pain or other Musc Musculoskeletal: No neck pain, abnormal walking, joint pain, back pain, limited range of motion, numbness or tingling Skin Skin: No redness, dry skin, itching, lesions, wounds or rash Neuro Neurology: No weakness, frequent falls, headache(s), abnormal hearing, abnormal walking, numbness, tingling, abnormal speech, dizziness or memory loss Psych Psychiatric: No change in appetite, No memory loss, No anxiety, No depression, No Thoughts of harming yourself/Others Endo Endocrine: Positive for fatigue; no excessive sweating, cold intolerance, increased thirst/drinking, heat intolerance, flushing or increased hunger Aller/Imm Allergy/Immunologic: No wheezing, itchy eyes, hives or seasonal allergy symptoms Nathan/Lymp Hematologic/Lymphatic: No easy bleeding, easy bruising or enlarged lymph nodes Exam Const General: cooperative, no acute distress Orientation: alert, awake, oriented x3 [facility] Head: atraumatic, normocephalic Ears: hearing grossly normal bilaterally Resp Effort AND Inspection: normal respiratory effort, able to speak in complete sentences Auscultation: Bilateral: Clear to Auscultation Cardio Rate: regular rate Rhythm: regular rhythm Heart Sounds: S1 normal, S2 normal GI Palpation: soft, no hepatosplenomegaly Neuro General: alert, awake, oriented x3, moves all extremities, CN's II-XI intact bilaterally Extrem General: no clubbing, cyanosis or edema Psych Appearance: grossly normal Mood: congruent mood Affect: normal affect Assessment AND Plan 1. Hypertension I10 Plan Optimally controlled. Continue current medications. Continue lifestyle modifications. Follow-up at next visit. 2. YOUNG (obstructive sleep apnea) G47.33 BiPAP 16/12 cm of water Plan She reports tolerance/compliance with her CPAP machine and is able to sleep for long hours.. Continue current management. Will follow. 3. Fatigue R53.83 Plan Patient reports occasional episodes of fatigue which is bothersome. She denies hypersomnolence. She however does report sleep disruptions due to some activities. Otherwise feels well. Vitamin D levels ordered. Last CBC with normal hemoglobin/hematocrit. Sleep hygiene discussed. Advised to call the office if she notes any worsening symptoms. This note was generated with [employer] dictation software. It may contain incorrect words, spelling, and punctuation that were not noted in checking the note before signing. Plan Detail Other Orders Orders: Coding Level of Care Code Off vis,est,level 3 Diagnoses Hypertension I10 YOUNG (obstructive sleep apnea) G47.33 Fatigue R53.83 11/19/17 1230 <Electronically signed by Berta Sofia MD> Date Berta Sofia MD Cosigner Signature: Date (if applicable) CC: VITAMIN D,25 HYDROXY Collected: 11/19/2017 Status: F Source: [place] 11:39 AM [facility] REPOSITORY TYPE CODE TESTS RESULT OUT OF REFERENCE UNITS RANGE LAB L506.1000 29.95-100.01 ng/mL Low Vitamin D 24.2 25-OH Result Comment: Vitamin D 25(OH) Status Range Deficiency <20 ng/mL (50nmol/L) Insuffciency 20 - 30 ng/mL (50 - 75 nmol/L) Sufficiency 30 - 100 ng/mL (75 - 250 nmol/L) Toxicity >100 ng/mL (>250 nmol/L) Performed By: #### L506.1000 #### [facility] [address] [place] [address]. [place], [address] PULMONARY VISIT REPORT Observed: 10/26/2017 Status: F Source: [place] 9:55 AM [facility] REPOSITORY [facility] of [address] [place] [address] OFFICE VISIT Date of Service: 10/25/17 MR#: [id number] Acct: [id number] Name: BRANDI SWEENEY Rep #: [id number] : 1945 Provider: Maisha Vann Age/Sex: 72/F Location: [facility] Status: Signed Assessment AND Plan 1. YOUNG (obstructive sleep apnea) G47.33 Status Chronic BiPAP 16/12 cm of water Plan She is using and benefiting from current pressure support therapy. No indication for titration study at this time. At this point, she states that it is difficult to sleep without her BiPAP. She has been encouraged to utilize her BiPAP for naps. Follow- up with in 1 year. 2. JONES (dyspnea on exertion) R06.09 Status Chronic Plan Stable. Anticipate that it may continue to improve over the next year with BiPAP compliance. She has been encouraged to contact the office if she develops any new or worsening symptoms in the meantime, otherwise follow-up in 1 year. HPI HPI Comments Details: This is a 72 year old very pleasant f, currently under the care of Dr. Sofia at [facility], here to follow up for sleep apnea. Current use of pressure support therapy is on average of 8 hours per night with current settings of 16/12 cmH2O. BRANDI denies any daytime somnolence, dry mouth in the morning, nocturia, snoring through the mask, morning headaches or difficulty with mask leaks. She reports that she used to experience nocturia up to 10 times per night, now experiences it only once per night or not at all. She reports a good amount of energy first thing in the morning and for the first 4 hours is able to complete all of her to do tasks for the day. At this point, she is so used to wearing the device that she reports that she cannot sleep without it. She continues to take a nap daily, at this point sometimes uses the BiPAP and sometimes does not. She has an occasional dry cough. She denies any sputum production or hemoptysis. She has some shortness of breath on exertion, believes it has improved since the changes were made to her BiPAP. She denies any fever, chills or body aches. She denies any chest pain or palpitations. She reports occasional ankle edema, but this is not troublesome. See complete review of systems. She does have a rescue inhaler but does not feel the need to use it. BRANDI reports feeling rested in the morning and is benefitting from current therapy. Compliance report was reviewed and shows 100% compliance, average use is 8 hours and 12 minutes. Current settings are 18/12 cm of water. Current AHI is 0.7 events per hour, and leaks do not appear to be a consistent issue. Intake Vital Signs10/25/17 Height 5 ft 3 in 10/25/17 Weight: 157 lb Intake Visit Reasons: 3 M FU Chief Complaint: fatigue, cough DME Vendor: [employer] Allergies No Known Allergies Allergy (Verified 10/05/17 10:58) Medications acetaminophen 325 mg tablet 500 mg PO Q4H PRN 07/19/17 [History Confirmed 10/05/17] nvzpt-o-vxzyprpubtmcm 300 unit disintegrating tablet 300 unit PO TID PRN 07/19/17 [History Confirmed 10/05/17] aspirin 81 mg tablet,delayed release 81 mg PO QDAY 07/19/17 [History Confirmed 10/05/17] ferrous sulfate 325 mg (65 mg iron) tablet PO 07/19/17 [History Confirmed 10/05/17] lisinopril 10 mg tablet 10 mg PO QDAY 07/19/17 [History Confirmed 10/05/17] prednisolone sodium phosphate 10 mg/5 mL oral solution 5 mg PO ONCE 07/19/17 [History Confirmed 10/05/17] albuterol sulfate HFA 90 mcg/actuation aerosol inhaler 2 puff INHALATION Q4H #1 inh 08/03/17 [Rx Confirmed 10/05/17] calcium carbonat and lactate 200 mg calcium-vitamin D3 250 unit tablet 2 tab PO HS 08/20/17 [History Confirmed 10/05/17] gabapentin 100 mg capsule 100 mg PO QHS #60 cap 08/20/17 [Rx Confirmed 10/05/17] simvastatin 10 mg tablet 10 mg PO QPM 08/20/17 [History Confirmed 10/05/17] amlodipine 5 mg tablet 5 mg PO QDAY #90 tab 09/17/17 [Rx Confirmed 10/05/17] omeprazole 20 mg capsule,delayed release 20 mg PO QDAY #90 cap 09/29/17 [Rx Confirmed 10/05/17] sertraline 50 mg tablet 50 mg PO QDAY #90 tab 10/01/17 [Rx Confirmed 10/05/17] PFSH Medical History Osteoporosis (Chronic) Hypertension (Chronic) YOUNG (obstructive sleep apnea) (Chronic) SOB (shortness of breath) (Chronic) Anemia (Chronic) Hyperlipidemia (Chronic) Rheumatoid arthritis (Chronic) Snoring (Chronic) GERD (gastroesophageal reflux disease) (Chronic) Nicotine dependence in remission (Chronic) Anxiety associated with depression (Chronic) Dyspnea on exertion (Chronic) Obstructive sleep apnea (Chronic) Surgical History History of tubal ligation (Resolved) Hx of LASIK (Resolved) history of mastoids in ear (Resolved) History of colon surgery (Resolved) Family History Mother , 75 years Cancer Liver cancer Father , 60 years Heart disease [place] Social History adopted: No housing: house current occupational status: previously employed current occupational exposures/hazards: No pets and animals: Yes pets and animals: dog(s), cat(s) Smoking Status: Former smoker quit date: 01/24/99 pack-years: 40 how long ago did patient quit smokin second hand exposure: No alcohol intake: never substance use type: does not use caffeine: Yes (3/day) Review of Systems Const CONSTITUTIONAL: Positive fatigue; negative anorexia, body ache, chills, daytime sleepiness, fever(s), night sweats, oral thrush, stops breathing during sleep, weight loss, sleeping in chair, weight loss, weight gain, frequent colds, seasonal allergies, other, headache(s) or orthopnea EETM Ear Nose Throat Mouth: Positive hearing normal and dry mouth in morning; negative hard of hearing, hoarseness, change in vision, itchy eyes, eye pain, swallowing Difficulty, ear pain, nose bleed, headache(s), mouth pain, nasal congestion, nasal discharge, post nasal drip, sinus pain, sinus pressure, sore throat or other Cardio Cardiovascular: Negative chest pain, chest pain at rest, chest pain with activity, irregular heart rhythm, edema, shortness of breath when lying down, palpitations, murmur or other Resp Respiratory: Positive as per HPI and cough cough: Positive non-productive and productive color: Positive clear; negative shortness of breath, pain with cough, wheezing, chest congestion, chest tightness, pain on inspiration, inhalers, increase use of rescue inhalers, snoring, apnea or other Gastro Gastrointestional: Negative bloody stools, change in appetite, difficulty swallowing, reflux, hematemesis, melena stool, loose stool, constipation or other Genitourinary: Negative blood in urine, nocturia, pain with urination or other Musc Musculoskeletal: Negative body pain, back pain, neck pain or other Skin/Breast Skin/Breast: Negative itching, dry skin, rash, unusual bruising, breast lump or other Neuro Neurological: Negative restless legs, confusion, weakness or other Psych Psychocological: Negative abnormal sleep pattern, anxiety, thoughts of hurting self/others, hopelessness or other Lymph Lymphatic: Negative easy bleeding, easy bruising, swollen lymph nodes or other Exam Const Constitutional: Positive conversant, cooperative, in no acute respiratory distress, healthy appearing, well developed, well nourished and good hygiene Head Head: Positive normocephalic and atraumatic; negative cyanosis of lips/distal nose Eyes Eye: Positive clear conjunctiva and nystagmus; negative scleral abnormality Ears Ear: Positive hearing normal and external ears normal; negative hard of hearing Nose Nose: Positive external nose normal and no nasal discharge; negative epistaxis Mouth Mouth: Positive oral mucosae normal, no lesions, good dentition and crowded posterior oropharynx; negative post nasal drip, malodorous breath or oral thrush present Mallampati Score: III: Mallampati Score Neck Neck: Positive normal visual inspection, full ROM and trachea midline; negative lymphadenopathy, JVD or tender Chest Wall Chest: Positive normal inspection of the chest and symmetric chest movement; negative increased A/P diameter Resp lung sounds: Positive clear to auscultation, good air exchange, normal expiratory time and normal respiratory effort; negative diminished, wheezes, rhonchi, rales, dullness to percussion or wheeze present on forced exhalation Cardio Cardiac: Positive regular rate, regular rhythm, S1 normal and S2 normal; negative murmur GI GI: Positive normal to inspection and normal bowel sounds; negative distended Genitourinary: Positive deferred Musc Musculoskeletal: Positive steady gait and ROM normal; negative kyphosis or scoliosis Skin Pulmonary Skin Exam: Positive intact; negative rash, lesion, ulcers, erythema, scaly or dermal atrophy Pulses Pulse: Yes pulses normal x4 extremities Extremities Extremities: Yes capillary refill normal, No clubbing, No cyanosis, No edema Neuro Neurologic: Yes conversant, Yes no focal neuro deficits, Yes cooperative, Yes normal cognition, Yes normal coordination, Yes normal concentration, Yes understands questions Lymph Lymphatic: No lymphadenopathy, No tenderness, No cervical adenopathy, No axillary adenopathy Psych Appearance: Positive grossly normal, eye contact and well kempt Mental Status: Positive mental status grossly normal Mood: Positive congruent mood Affect: Positive normal affect Coding Level of Care Code Off vis,est,level 3 Diagnoses YOUNG (obstructive sleep apnea) G47.33 JONES (dyspnea on exertion) R06.09 10/26/17 0955 <Electronically signed by Maisha WILSON> Date Maisha THOMASC Cosigner Signature: Date (if applicable) CC: Berta Sofia MD PULMONARY VISIT REPORT Observed: 10/05/2017 Status: F Source: [place] 11:57 AM [facility] Pulmonary Medicine of [address] [place] [address] OFFICE VISIT Date of Service: 10/05/17 MR#: [id number] Acct: [id number] Name: BRANDI SWEENEY Rep #: [id number] : 1945 Provider: Abdifatah Mann D.O. Age/Sex: 72/F [facility] Status: Signed Assessment AND Plan 1. YOUNG (obstructive sleep apnea) G47.33 Plan The patient reports symptomatic improvement with the use of bilevel therapy at a pressure setting of 16/12 cm of water with medication. There is no indication for a change in her pressure settings today. Ongoing compliance has been emphasized. The patient will follow up with us in 1 year. 2. 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 3. Follow up Z09 Plan Detail Follow Up 1 Year ([facility]) HPI HPI Comments Details: The patient is a 72-year-old female who presents to the clinic today for a routine scheduled follow-up office visit due to underlying obstructive sleep apnea. If you recall, the patient was initially referred to the pulmonary medicine clinic in April 2017 for evaluation of newly diagnosed obstructive sleep apnea. Patient also has a 78-doiy-krcr smoking history, having quit completely in 1991. She was employed previously as a [employer] worker 35 years. Pulmonary function testing was completed in May 2017 and was essentially within normal limits. The patient's BIPAP compliance report was personally reviewed with the patient at today's office visit. She has demonstrated overall compliance of 100% over the last 30 days. She is currently prescribed a pressure setting of 16/12 cm of water. She has a residual AHI noted to be 0.9. Air leak is minimal. Today, the patient reports feeling quite well since being started on BiPAP. Her sleep quality has improved. She reports the presence of restorative sleep and diminished excessive daytime sleepiness. She is no longer napping. She is more energized now throughout the day. She denies fevers, chills or night sweats. Her weight has been stable. She denies chest pain, dizziness or lightheadedness. Intake Vital Signs10/05/17 Height 5 ft 3 in 10/05/17 Weight: 156 lb Intake Visit Reasons: Follow up DME Vendor: [employer] Accompanied by: Self Allergies No Known Allergies Allergy (Verified 10/05/17 10:58) Medications acetaminophen 325 mg tablet 500 mg PO Q4H PRN 07/19/17 [History Confirmed 10/05/17] wgpar-r-jguxwldmeoaac 300 unit disintegrating tablet 300 unit PO TID PRN 07/19/17 [History Confirmed 10/05/17] aspirin 81 mg tablet,delayed release 81 mg PO QDAY 07/19/17 [History Confirmed 10/05/17] ferrous sulfate 325 mg (65 mg iron) tablet PO 07/19/17 [History Confirmed 10/05/17] lisinopril 10 mg tablet 10 mg PO QDAY 07/19/17 [History Confirmed 10/05/17] prednisolone sodium phosphate 10 mg/5 mL oral solution 5 mg PO ONCE 07/19/17 [History Confirmed 10/05/17] albuterol sulfate HFA 90 mcg/actuation aerosol inhaler 2 puff INHALATION Q4H #1 inh 08/03/17 [Rx Confirmed 10/05/17] calcium carbonat and lactate 200 mg calcium-vitamin D3 250 unit tablet 2 tab PO HS 08/20/17 [History Confirmed 10/05/17] gabapentin 100 mg capsule 100 mg PO QHS #60 cap 08/20/17 [Rx Confirmed 10/05/17] simvastatin 10 mg tablet 10 mg PO QPM 08/20/17 [History Confirmed 10/05/17] amlodipine 5 mg tablet 5 mg PO QDAY #90 tab 09/17/17 [Rx Confirmed 10/05/17] omeprazole 20 mg capsule,delayed release 20 mg PO QDAY #90 cap 09/29/17 [Rx Confirmed 10/05/17] sertraline 50 mg tablet 50 mg PO QDAY #90 tab 10/01/17 [Rx Confirmed 10/05/17] [facility] Medical History Osteoporosis (Chronic) Hypertension (Chronic) YOUNG (obstructive sleep apnea) (Chronic) SOB (shortness of breath) (Chronic) Anemia (Chronic) Hyperlipidemia (Chronic) Rheumatoid arthritis (Chronic) Snoring (Chronic) GERD (gastroesophageal reflux disease) (Chronic) Nicotine dependence in remission (Chronic) Anxiety associated with depression (Chronic) Dyspnea on exertion (Chronic) Obstructive sleep apnea (Chronic) Surgical History History of tubal ligation (Resolved) Hx of LASIK (Resolved) history of mastoids in ear (Resolved) History of colon surgery (Resolved) Family History Mother , 75 years Cancer Liver cancer Father , 60 years Heart disease [place] Social History adopted: No housing: house current occupational status: previously employed current occupational exposures/hazards: No pets and animals: Yes pets and animals: dog(s), cat(s) Smoking Status: Former smoker quit date: 01/24/99 pack-years: 40 how long ago did patient quit smokin second hand exposure: No alcohol intake: never substance use type: does not use caffeine: Yes (3/day) Review of Systems Const CONSTITUTIONAL: Negative anorexia, body ache, chills, daytime sleepiness, fever(s), night sweats, oral thrush, stops breathing during sleep, weight loss, sleeping in chair, fatigue, weight loss, weight gain, frequent colds, seasonal allergies, other, headache(s) or orthopnea EETM Ear Nose Throat Mouth: Positive hearing normal, hoarseness, dry mouth in morning and sore throat; negative hard of hearing, change in vision, itchy eyes, eye pain, swallowing Difficulty, ear pain, nose bleed, headache(s), mouth pain, nasal congestion, nasal discharge, post nasal drip, sinus pain, sinus pressure or other Cardio Cardiovascular: Negative chest pain, chest pain at rest, chest pain with activity, irregular heart rhythm, edema, shortness of breath when lying down, palpitations, murmur or other Resp Respiratory: Positive as per HPI; negative shortness of breath, pain with cough, wheezing, chest congestion, cough, chest tightness, pain on inspiration, inhalers, increase use of rescue inhalers, snoring, apnea or other Gastro Gastrointestional: Negative bloody stools, change in appetite, difficulty swallowing, reflux, hematemesis, melena stool, loose stool, constipation or other Genitourinary: Negative blood in urine, nocturia, pain with urination or other Musc Musculoskeletal: Negative body pain, back pain, neck pain or other Skin/Breast Skin/Breast: Negative dry skin, itching, rash, unusual bruising, breast lump or other Neuro Neurological: Negative restless legs, confusion, weakness or other Psych Psychocological: Negative abnormal sleep pattern, anxiety, thoughts of hurting self/others, hopelessness or other Lymph Lymphatic: Negative easy bleeding, easy bruising, swollen lymph nodes or other Exam Const Constitutional: Positive conversant, cooperative, in no acute respiratory distress, well developed, well nourished and good hygiene Head Head: Positive normocephalic and atraumatic; negative cyanosis of lips/distal nose Eyes Eye: Positive clear conjunctiva; negative nystagmus or scleral abnormality Ears Ear: Positive hearing normal and external ears normal; negative hard of hearing Nose Nose: Positive external nose normal; negative epistaxis Mouth Mouth: Positive oral mucosae normal and posterior oropharynx is adequate; negative no lesions or post nasal drip Mallampati Score: I: Mallampati Score Neck Neck: Positive normal visual inspection and trachea midline; negative lymphadenopathy Chest Wall Chest: Positive symmetric chest movement Normal AP diameter. Resp lung sounds: Positive clear to auscultation and good air exchange; negative wheezes, rhonchi or rales Cardio Cardiac: Positive regular rate, regular rhythm, S1 normal and S2 normal; negative rub, gallop or murmur GI GI: Positive normal bowel sounds Soft without distention Genitourinary: Positive deferred Musc Musculoskeletal: Positive steady gait Skin Pulmonary Skin Exam: Positive intact; negative lesion, ulcers, dermal atrophy or rash Pulses Pulse: Yes Pedal pulses present: Extremities Extremities: No clubbing, No cyanosis, No edema Neuro Neurologic: Yes conversant, Yes no focal neuro deficits, Yes cooperative Lymph Lymphatic: No lymphadenopathy Psych Appearance: Positive grossly normal Mental Status: Positive mental status grossly normal Mood: Positive congruent mood Affect: Positive normal affect Coding Level of Care Code Off vis,est,level 3 Diagnoses YOUNG (obstructive sleep apnea) G47.33 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 Follow up Z09 10/05/17 1157 <Electronically signed by Abdifatah Mann DO> Date Abdifatah Mann DO Cosigner Signature: Date (if applicable) CC: Berta Sofia MD INTERNAL MEDICINE Observed: 09/21/2017 Status: F Source: [place] OFFICE VISIT 2:51 PM [facility] Internal Medicine [address] [place] [address] OFFICE VISIT Date of Service: 09/21/17 MR#: [id number] Acct: [id number] Name: BRANDI SWEENEY Rep #: [id number] : 1945 Provider: Angus Mackenzie NP Age/Sex: 72/F Location: [facility] Status: Signed Intake Vital Signs09/21/17 Height 5 ft 3 in Intake Visit Reasons: acute illness Chief Complaint: fatigue, cough Is patient in pain?: No Allergies No Known Allergies Allergy (Verified 07/28/17 09:28) Medications acetaminophen 325 mg tablet 500 mg PO Q4H PRN 07/19/17 [History Confirmed 08/20/17] hqpjl-l-ehemnuzbczeiy 300 unit disintegrating tablet 300 unit PO TID PRN 07/19/17 [History Confirmed 08/20/17] aspirin 81 mg tablet,delayed release 81 mg PO QDAY 07/19/17 [History Confirmed 08/20/17] ferrous sulfate 325 mg (65 mg iron) tablet PO 07/19/17 [History Confirmed 08/20/17] lisinopril 10 mg tablet 10 mg PO QDAY 07/19/17 [History Confirmed 08/20/17] omeprazole 20 mg capsule,delayed release 20 mg PO QDAY 07/19/17 [History Confirmed 08/20/17] prednisolone sodium phosphate 10 mg/5 mL oral solution 5 mg PO ONCE 07/19/17 [History Confirmed 08/20/17] sertraline 50 mg tablet 50 mg PO QDAY 07/19/17 [History Confirmed 08/20/17] albuterol sulfate HFA 90 mcg/actuation aerosol inhaler 2 puff INHALATION Q4H #1 inh 08/03/17 [Rx Confirmed 08/20/17] calcium carbonat and lactate 200 mg calcium-vitamin D3 250 unit tablet 2 tab PO HS 08/20/17 [History Confirmed 08/20/17] gabapentin 100 mg capsule 100 mg PO QHS #60 cap 08/20/17 [Rx Confirmed 08/20/17] simvastatin 10 mg tablet 10 mg PO QPM 08/20/17 [History Confirmed 08/20/17] amlodipine 5 mg tablet 5 mg PO QDAY #90 tab 09/17/17 [Rx] PFSH Medical History Osteoporosis (Chronic) Hypertension (Chronic) YOUNG (obstructive sleep apnea) (Chronic) SOB (shortness of breath) (Chronic) Anemia (Chronic) Hyperlipidemia (Chronic) Rheumatoid arthritis (Chronic) Snoring (Chronic) GERD (gastroesophageal reflux disease) (Chronic) Nicotine dependence in remission (Chronic) Anxiety associated with depression (Chronic) Dyspnea on exertion (Chronic) Obstructive sleep apnea (Chronic) Surgical History History of tubal ligation (Resolved) Hx of LASIK (Resolved) history of mastoids in ear (Resolved) History of colon surgery (Resolved) Family History Mother , 75 years Cancer Liver cancer Father , 60 years Heart disease [place] Social History adopted: No housing: house current occupational status: previously employed current occupational exposures/hazards: No pets and animals: Yes pets and animals: dog(s), cat(s) Smoking Status: Former smoker quit date: 01/24/99 pack-years: 40 how long ago did patient quit smokin second hand exposure: No alcohol intake: never substance use type: does not use caffeine: Yes (3/day) HPI HPI Chief Complaint: fatigue, cough Details: BRANDI SWEENEY, is a 72 F who presents to the office today for an acute visit of cough and fatigue. She has a past medical history as listed above. The patient states that her cough began approximately a week ago and has been progressively getting better. She states that as of today she has not had any coughing symptoms at all. However she wanted somebody to listen to her lungs and evaluate her to make sure that she was okay. The patient states that it began as a green-yellow cough and has gradually cleared to a clear nonproductive cough and now the cough is entirely resolved. She has been taking ewnk-fmi-aeelxzz Mucinex with moderate relief. She was exposed to her sick grandkids over week ago and shortly after this developed. She also noted that she had some discharge from her left eye, however this has resolved now as well she denies any other alleviating or aggravating symptoms. The patient otherwise denies any fever, chills, nausea, vomiting, shortness of breath, chest pain or pressure, palpitations, orthopnea, lower extremity edema, syncope or presyncopal episodes. ROS Const Constitutional: Positive for fatigue and weakness; no weight change, body ache, chills, sleep problems, fever(s), change in appetite, snoring, frequent falls, headache(s) or excessive sweating Eyes Eyes: Positive for discharge; no change in vision, eye pain, light sensitivity or blurry vision ENT ENT: No headache(s), abnormal hearing, ear pain, tinnitus, nasal congestion, sore throat or neck pain Resp Respiratory: Positive for cough Cough: Yes productive; no snoring, shortness of breath or wheezing Cardio Cardiology: No excessive sweating, chest pain at rest, chest pain with exertion, shortness of breath, dyspnea on exertion, palpitations, orthopnea or lightheadedness Gastro GI: No abdominal pain, change in bowel habits, constipation, diarrhea, vomiting, nausea/dyspepsia or cramping Musc Musculoskeletal: No neck pain, abnormal walking, joint pain, back pain, limited range of motion, numbness, tingling or muscle weakness Skin Skin: No redness, dry skin, itching, lesions, wounds or rash Neuro Neurology: Positive for weakness; no frequent falls, headache(s), abnormal hearing, abnormal walking, numbness, tingling, abnormal speech, dizziness or memory loss Psych Psychiatric: No change in appetite, No memory loss, No anxiety, No depression, No Thoughts of harming yourself/Others Endo Endocrine: Positive for fatigue; no excessive sweating, cold intolerance, increased thirst/drinking, heat intolerance, flushing or increased hunger Aller/Imm Allergy/Immunologic: No wheezing, itchy eyes, hives or seasonal allergy symptoms Nathan/Lymp Hematologic/Lymphatic: No easy bleeding, easy bruising or enlarged lymph nodes Exam Const General: cooperative, comfortable, no acute distress Nutritional Appearance: average body habitus, well nourished Orientation: alert, oriented x3 Limitations: mental status not altered [facility] Head: normal to inspection Ears: hearing grossly normal bilaterally Nose: external nose normal Eyes General: appearance normal, both eyes and all related structures Eyelids: eyelids normal Conjunctivae: conjunctivae normal Sclera: sclerae normal Pupils: PERRL Resp Effort AND Inspection: normal respiratory effort, able to speak in complete sentences, normal respiratory pattern, symmetric chest movement, no audible wheezes, no cough Auscultation: Bilateral: Clear to Auscultation Cardio Palpation: normal PMI Rate: regular rate Heart Sounds: S1 normal, S2 normal, normal S1 and S2, no click, no gallops, no murmurs, no rubs GI Inspection: normal to inspection Auscultation: normal bowel sounds, no hyperactive bowel sounds, no hypoactive bowel sounds Palpation: soft, no hepatosplenomegaly Musc Musculoskeletal: No joint tenderness, decreased ROM or muscle weakness Skin General: no rashes or lesions noted, elasticity normal, turgor normal Lesions: no lesions Rashes: no rashes Neuro General: alert, awake, oriented x3, CN's II-XI intact bilaterally Speech: speech normal Gait: normal gait Motor: muscle tone normal throughout Extrem General: normal to inspection, normal gait, no edema, no pedal edema Psych Appearance: grossly normal Mental Status: mental status grossly normal Affect: normal affect Attitude: cooperative Thought Process: normal Assessment AND Plan Problems 1. URI (upper respiratory infection) J06.9 Plan The patient's symptoms are consistent with that of a viral upper respiratory infection which has now entire resolved. Discussed with patient supportive therapy that she can take as well as proper hand hygiene to prevent any transmission of diseases. Instructed her on red flag symptoms that require urgent medical attention and patient verbalized understanding. Patient to follow-up as previously scheduled or sooner if needed. This note was generated with [employer] dictation software. It may contain incorrect words, spelling, and punctuation that were not noted in checking the note before signing. Plan Detail Follow Up As previously discussed Coding Level of Care Code Off vis,est,level 3 Diagnoses URI (upper respiratory infection) J06.9 09/21/17 1451 <Electronically signed by Angus WILSON> Date Angus WILSON Cosigner Signature: Date (if applicable) CC: ALLERGIES ALLERGIES DATE TYPE / CODE NAME / CODE REACTION SEVERITY SOURCE 06/27/2018 Drug No Known Unknown [facility] Allergy/4160 Allergies/F00 [facility] 89656(SNOMED [id number](RXNOR Repository CT) M) ENCOUNTERS ENCOUNTERS ADMIT/DISCHARGE ACCOUNT ADMITTING ENCOUNTER LOCATION SOURCE NUMBER CLASS 07/18/2018 [id number] Ambulatory BMSBuilding:B [place] 9 [place] Repository 07/13/2018 [id number] Ambulatory [place] 6 [facility] ing:MTLAB Repository 06/30/2018/ [id number] Ambulatory BMSBuilding:B [place] 8 6 [facility] Repository 06/27/2018/ [id number] Ambulatory BMSBuilding:B [place] 8 5 [facility] Repository 05/31/2018 [id number] Ambulatory [place] 8 [facility] Hospital ing:LAB Repository 05/27/2018/ [id number] Ambulatory BMSBuilding:B [place] 8 7 [facility] Repository 04/30/2018/ [id number] Ambulatory BMSBuilding:B [place] 8 8 [facility] Repository 04/05/2018 [id number] Ambulatory Brenden [place] 8 [facility] ing:OPBD Repository 02/18/2018/ [id number] Ambulatory BMSBuilding:B [place] 8 3 [facility] Repository 02/16/2018 [id number] Ambulatory [place] 7 [facility] Hospital ing:LABSPEC Repository 02/01/2018 [id number] Ambulatory Brenden [place] 1 [facility] Hospital ing:MTLAB Repository 01/26/2018/ [id number] Ambulatory BMSBuilding:B [place] 8 8 [facility] Repository 01/07/2018/ [id number] Ambulatory BMSBuilding:B [place] 8 1 [facility] Repository 12/30/2017/ [id number] Ambulatory BMSBuilding:B [place] 8 7 [facility] Repository 12/24/2017 [id number] Ambulatory Brenden [place] 7 [facility] Hospital ing:MTLAB Repository 12/24/2017/ [id number] Ambulatory BMSBuilding:B [place] 8 4 [facility] Repository 11/19/2017 [id number] Ambulatory Brenden [place] 7 [facility] Hospital ing:MTLAB Repository 11/19/2017/ [id number] Ambulatory BMSBuilding:B [place] 8 9 [facility] Repository 10/25/2017/ [id number] Ambulatory BMSBuilding:B [place] 8 1 [facility] Repository 10/07/2017 [id number] Ambulatory BMSBuilding:B [place] 2 [place].[facility] Repository 10/05/2017/ [id number] Ambulatory BMSBuilding:B [place] 8 7 [facility] Repository 09/21/2017/ [id number] Ambulatory BMSBuilding:B [place] 8 0 [facility] Repository PAYERS PAYERS ENCOUNTER GUARANTOR PAYER SUBSCRIBER SOURCE 07/18/2018 BRANDI Ferrer Primary BRANDI A [place] [id number] Insurance:MEDICARE [place]: [facility] [id number] Number: Repository [id number]: 330 [id number] [phone] () Date:2018-07-18 07/18/2018 Secondary BRANDI A [place] Insurance:CIGNAPolicy [place]: [facility] Number: [id number] Hospital [id number] Repository Date:3117-38-06[address], [place] [address]HH: 07/18/2018 Tertiary NOT GIVENUNK [place] Insurance:SELF PAY [facility] Number: Effective Repository Date:2018-07-18 07/13/2018 BRANDI Ferrer Primary BRANDI A [place] [id number] Insurance:MEDICARE [place]: [facility] [id number] Number: Repository [id number]: 330 [id number] [phone] () Date:2018-07-13 07/13/2018 Secondary BRANDI A [place] Insurance:CIGNAPolicy [place]: [facility] Number: [id number] Hospital [id number] Repository Date:1428-98-15[address], [place] [address]ND: 07/13/2018 Tertiary NOT GIVENUNK [place] Insurance:SELF PAY [facility] Number: Effective Repository Date:2018-07-13 06/30/2018 BRANDI A Primary BRANDI A [place] [id number] Insurance:MEDICARE [place]: Community CARLA PART A [facility] [id number], [place] Number: Repository [id number]: [phone] [id number] [phone] () Date:2018-05-27 06/30/2018 Secondary BRANDI A [place] Insurance:CIGNAPolicy [place]: Community Number: [id number] Hospital [id number] Repository Date:0273-87-65[address], [place] [address]NB: 06/30/2018 Tertiary NOT GIVENUNK [place] Insurance:SELF PAY [facility] Effective Repository Date:2018-06-22 06/27/2018 BRANDI A Primary BRANDI A [place] [id number] Insurance:MEDICARE [place]: Community CARLA PART A [facility] [id number], [place] Number: Repository [address]Xfa: 330 [id number] [phone] () Date:2018-06-27 06/27/2018 Secondary BRANDI A [place] Insurance:CIGNAPolicy [place]: Community Number: [id number] Hospital [id number] Repository Date:0225-92-83[address], [place] [address]RJ: 06/27/2018 Tertiary NOT GIVENUNK [place] Insurance:SELF PAY [facility] Number: Effective Repository Date:2018-06-27 05/31/2018 BRANDI A Primary BRANDI A [place] [id number] Insurance:MEDICARE [place]: Community CARLA PART A [facility] [id number], [place] Number: Repository [address]Qol: 330 [id number] [phone] () Date:2018-05-31 05/31/2018 Secondary BRANDI A [place] Insurance:CIGNAPolicy [place]: Community Number: [id number] Hospital [id number] Repository Date:6071-82-24[address], [place] [address]FY: 05/31/2018 Tertiary NOT GIVENUNK [place] Insurance:SELF PAY [facility] Number: Effective Repository Date:2018-05-31 05/27/2018 BRANDI A Primary BRANDI A [place] [id number] Insurance:MEDICARE [place]: Community CARLA PART A [facility] [id number] Number: Repository [address]Ssa: 330 [id number] [phone] () Date:2018-02-18 05/27/2018 Secondary BRANDI A [place] Insurance:CIGNAPolicy [place]: Community Number: [id number] [facility] [id number] Repository Date:9798-76-24DS [address]WAQAWXAPNBP, [place] [address]XP: 05/27/2018 Tertiary NOT GIVENUNK [place] Insurance:SELF PAY [facility] Number: Effective Repository Date:2018-05-27 04/30/2018 BRANDI A Primary BRANDI A [place] [id number] Insurance:[place]ICARE [place]: Community [place] PART A [facility] [id number] Number: Repository [id number]: 330 [id number] [phone] () Date:2018-04-30 04/30/2018 Secondary BRANDI A [place] Insurance:CIGNAPolicy [place]: Community Number: [id number] Hospital [id number] Repository Date:9382-54-69HX [address]ENNTKCIPVTL, [place] [address]CQ: 04/30/2018 Tertiary NOT GIVENUNK [place] Insurance:SELF PAY [facility] Number: Effective Repository Date:2018-04-30 04/05/2018 BRANDI A Primary BRANDI A [place] [id number] Insurance:MEDICARE [place]: Community [place] PART A [facility] [id number] Number: Repository [address]Nbx: [phone] [id number] [phone] () Date:2018-02-18 04/05/2018 Secondary BRANDI A [place] Insurance:CIGNAPolicy [place]: Community Number: [id number] Hospital [id number] Repository Date:0537-17-96KD [address]GNZIKPEJXSS, [place] [address]XD: 04/05/2018 Tertiary NOT GIVENUNK [place] Insurance:SELF PAY [facility] Effective Repository Date:2018-02-18 02/18/2018 BRANDI A Primary BRANDI A [place] [id number] Insurance:MEDICARE [place]: Community [place] PART A [facility] [id number] Number: Repository [id number]: 330 [id number] [phone] () Date:2017-11-19 02/18/2018 Secondary BRANDI A [place] Insurance:CIGNAPolicy [place]: Community Number: [id number] Hospital [id number] Repository Date:2522-51-29BA [address]WIKHBIXANLD, [place] [address]CF: 02/18/2018 Tertiary NOT GIVENUNK [place] Insurance:SELF PAY [facility] Number: Effective Repository Date:2018-02-18 02/16/2018 BRANDI A Primary BRANDI A [place] [id number] Insurance:MEDICARE [place]: [facility] PART A [facility] [id number], [place] Number: Repository [address]Gzb: 330 [id number] [phone] () Date:2018-02-16 02/16/2018 Secondary BRANDI A [place] Insurance:CIGNAPolicy [place]: [facility] Number: [id number] Hospital [id number] Repository Date:8895-72-05DK [address]UJXHXICWBQW, [place] [address]QT: 02/16/2018 Tertiary NOT GIVENUNK [place] Insurance:SELF PAY [facility] Number: Effective Repository Date:2018-02-16 02/01/2018 BRANDI A Primary BRANDI A [place] [id number] Insurance:MEDICARE [place]: Community [place] PART A [facility] [id number] Number: Repository [address]Mwh: 330 [id number] [phone] (HP) Date:2018-02-01 02/01/2018 Secondary BRANDI A [place] Insurance:CIGNAPolicy [place]: Community Number: [id number] Hospital [id number] Repository Date:3154-00-54VI [address]RZQZMFLKJHC, [place] [address]DO: 02/01/2018 Tertiary NOT GIVENUNK [place] Insurance:SELF PAY [facility] Number: Effective Repository Date:2018-02-01 01/26/2018 BRANDI A Primary BRANDI A [place] [id number] Insurance:MEDICARE [place]: [facility] PART A [facility] [id number] [place] Number[facility] Repository [address]Jpm: 330 [id number] [phone] () Date:2018-01-24 01/26/2018 Secondary BRANDI A [place] Insurance:CIGNAPolicy [place]: Community Number: [id number] Hospital [id number] Repository Date:7739-67-29WJ [address]PEDVJLCLXBA, [place] [address]RX: 01/26/2018 Tertiary NOT GIVENUNK [place] Insurance:SELF PAY [facility] Number: Effective Repository Date:2018-01-24 01/07/2018 BRANDI A Primary BRANDI A [place] [id number] Insurance:MEDICARE [place]: Community [place] PART A [place] [id number] [place] Number: Repository [address]Lvh: [id number] [phone] Date:2017-12-28 () 01/07/2018 Secondary BRANDI A [place] Insurance:CIGNAPolicy [place]: Community Number: [id number] Hospital [id number] Repository Date:4264-98-29MO [address] [address]QG: 01/07/2018 Tertiary NOT GIVENUNK [place] Insurance:SELF PAY [facility] Number: Effective Repository Date:2018-01-14 12/30/2017 BRANDI A Primary BRANDI A [place] [id number] Insurance:MEDICARE [place]: Community [place] PART A [facility] [id number] [place] Number: Repository [address]Pib: [id number] [phone] Date:2017-10-14 () 12/30/2017 Secondary BRANDI A [place] Insurance:CIGNAPolicy [place]: Community Number: [id number] Hospital [id number] Repository Date:4391-01-22BD [address]GWLQSGLFGEP, [place] [address]QV: 12/30/2017 Tertiary NOT GIVENUNK [place] Insurance:SELF PAY [facility] Number: Effective Repository Date:2017-12-24 12/24/2017 BRANDI A Primary BRANDI A [place] [id number] Insurance:MEDICARE [place]: Community [place] PART A [facility] [id number] [place] Number: Repository [address]Vid: 330 [id number] [phone] () Date:2017-12-24 12/24/2017 Secondary BRANDI A [place] Insurance:CIGNAPolicy [place]: Community Number: [id number] Hospital [id number] Repository Date:0429-12-40AZ [address]HLYHFHJBYOW, [place] [address]HB: 12/24/2017 Tertiary NOT GIVENUNK [place] Insurance:SELF PAY [facility] Number: Effective Repository Date:2017-12-24 12/24/2017 BRANDI A Primary BRANDI A [place] [id number] Insurance:MEDICARE [place]: Community CAR[place] PART A [facility] [id number] Number: Repository [address]Lpj: [id number] [phone] Date:2017-12-24 () 12/24/2017 Secondary BRANDI A [place] Insurance:CIGNAPolicy [place]: Community Number: [id number] Hospital [id number] Repository Date:3433-46-07HH [address] [address]RE: 12/24/2017 Tertiary NOT GIVENUNK [place] Insurance:SELF PAY [facility] Number: Effective Repository Date:2017-12-24 11/19/2017 BRANDI A Primary BRANDI A [place] [id number] Insurance:MEDICARE [place]: Community CAR[place] PART A [facility] [id number] Number: Repository [address]Qzz: 330 [id number] [phone] () Date:2017-11-19 11/19/2017 Secondary BRANDI A [place] Insurance:CIGNAPolicy [place]: Community Number: [id number] Hospital [id number] Repository Date:4511-36-76IT [address]FVVZRHPLUFO, [place] [address]EV: 11/19/2017 Tertiary NOT GIVENUNK [place] Insurance:SELF PAY [facility] Number: Effective Repository Date:2017-11-19 11/19/2017 BRANDI A Primary BRANDI A [place] [id number] Insurance:MEDICARE [place]: Community [place] PART A [facility] [id number] Number: Repository [address]Jsq: 330 [id number] [phone] () Date:2017-08-20 11/19/2017 Secondary BRANDI A [place] Insurance:CIGNAPolicy [place]: Community Number: [id number] Hospital [id number] Repository Date:7617-82-25TI [address]LDQUWYVHLIH, [place] [address]GP: 11/19/2017 Tertiary NOT GIVENUNK [place] Insurance:SELF PAY [facility] Number: Effective Repository Date:2017-11-19 10/25/2017 BRANDI A Primary BRANDI A [place] [id number] Insurance:MEDICARE [place]: [facility] PART A [facility] [id number] Number: Repository [address]Vyz: [phone] [id number] [phone] () Date:2017-07-28 10/25/2017 Secondary BRANDI A [place] Insurance:CIGNAPolicy [place]: [facility] Number: [id number] Hospital [id number] Repository Date:5371-26-86SV [address]TQXYNRIYCKV, [place] [address]KU: 10/25/2017 Tertiary NOT GIVENUNK [place] Insurance:SELF PAY [facility] Number: Effective Repository Date:2017-10-21 10/07/2017 BRANDI A Primary BRANDI A [place] [id number] Insurance:CIGNAPolicy [place]: [facility] Number: [id number] [id number] Repository [address]Giv: 330) Date:8738-87-77IL [phone] () 360734FLXTRVURYMO, [place] [address]OA: 10/07/2017 Secondary BRANDI A [place] Insurance:MEDICARE [place]: Community PART A [facility] [id number] Hospital Number: Repository [id number] Date:2017-07-12 10/07/2017 Tertiary NOT GIVENUNK [place] Insurance:SELF PAY [facility] Number: Effective Repository Date:2017-07-12 10/05/2017 BRANDI A Primary BRANDI A [place] [id number] Insurance:MEDICARE [place]: [facility] PART A [facility] [id number], [place] Number: Repository [address]Wgn: 330 [id number] [phone] () Date:2017-07-05 10/05/2017 Secondary BRANDI A [place] Insurance:CIGNAPolicy [place]: Community Number: [id number] Hospital [id number] Repository Date:5049-17-74PP [address] [address]WF: 10/05/2017 Tertiary NOT GIVENUNK [place] Insurance:SELF PAY [facility] Number: Effective Repository Date:2017-07-05 09/21/2017 BRANDI A Primary BRANDI A [place] [id number] Insurance:MEDICARE [place]: [facility] PART A [facility] [id number] Number: Repository [address]Bun: 330 [id number] [phone] () Date:2017-09-21 09/21/2017 Secondary BRANDI A [place] Insurance:CIGNAPolicy [place]: Community Number: [id number] Hospital [id number] Repository Date:4678-04-01IK [address]WGFXRGURKUN, [place] [address]YK: 09/21/2017 Tertiary NOT GIVENUNK [place] Insurance:SELF PAY [facility] Number: Effective Repository Date:2017-09-21
== END ==
PROVIDERS: Family Provider Internal Medicine; PCP Internal Medicine; Referring Provider Internal Medicine Rheumatology; Visit Provider Internal Medicine Rheumatology
DX: M35.3 Polymyalgia rheumatica (principal); M06.4 Inflammatory polyarthropathy; F32.89 Other specified depressive episodes; E78.5 Hyperlipidemia, unspecified; K58.9 Irritable bowel syndrome, unspecified; G47.33 Obstructive sleep apnea (adult) (pediatric)
CPT/HCPCS: 36415; 80053; 85025

== ENCOUNTER → 2018-10-11 13:00 | Outpatient (CLI) | payer MEDICARE, OTHER, SELFPAY ==
[2018-10-06 10:15] VITALS: BMI 26.7
== END ==
PROVIDERS: Family Provider Internal Medicine; PCP Internal Medicine; Visit Provider Nurse Practitioner Acute Care
DX: G47.33 Obstructive sleep apnea (adult) (pediatric) (principal)
CPT/HCPCS: 98960; G0463

== ENCOUNTER → 2018-11-04 12:45 | Outpatient (CLI) | payer MEDICARE, OTHER, SELFPAY ==
[2018-10-06 10:15] VITALS: BMI 26.7
== END ==
PROVIDERS: Family Provider Internal Medicine; PCP Internal Medicine; Referring Provider Nurse Practitioner Acute Care; Visit Provider Nurse Practitioner Acute Care
DX: Z46.89 Encounter for fitting and adjustment of other specified devices (principal)

== ENCOUNTER → 2019-02-16 09:23 | Outpatient (CLI) | payer MEDICARE, OTHER, SELFPAY ==
[2019-02-03 14:47] VITALS: BMI 26.4
[2019-02-16 12:06] LABS: Absolute Lymphocyte Count 1.49 X10^3/uL (0.83-4.51); Absolute Neutrophil Count 3.1 X10^3/uL (2.0-7.7); Basophil# 0.05 X10^3/uL; Basophil% 0.9 % (0-1); Eosinophil# 0.28 X10^3/uL; Eosinophils% 5.3 % (0-5); Hematocrit 42.5 % (37-47); Hemoglobin 14.5 g/dL (12.0-15.0); Lymphocyte # 1.49 X10^3/ul (4.0); Mean Corp Hgb Conc 34.1 g/dL (32-36); Mean Corpuscular Hgb 28.7 pg (27.0-32.0); Mean Platelet Vol. 8.4 fl (6.2-12.0); Monocyte# 0.37 X10^3/uL; Monocyte% 6.9 % (0-10); NRBC Flagged by Analyzer 0 % (0-5); Neutrophil # 3.13 X10^3/uL (2.7-7.7); Neutrophil % 58.7 % (47-70); Platelet Count 208 K/mm3 (150-450); RBC Distribution Width CV 13.2 % (11.6-14.6); RBC Distribution Width SD 40.2 fl (35.1-43.9); Red Blood Count 5.06 M/mm3 (4.2-5.4); White Blood Count 5.3 K/mm3 (4.4-11.0)
[2019-02-16 12:27] LABS: ALB/GLOB Ratio 1.1 RATIO (0.9-2.4); AST(SGOT) 21 U/L (15-37); Alanine Aminotransfer ALT/SGPT 35 U/L (13-56); Albumin, Serum 3.7 g/dL (3.2-5.0); Alkaline Phosphatase 50 U/L (45-117); Anion Gap 5 (5-15); BUN 18 mg/dL (7-18); BUN/Creat Ratio 21.4 RATIO (10-20); Calcium,Total 8.8 mg/dL (8.5-10.1); Chloride 106 mmol/L (98-107); Creatinine, Serum 0.84 mg/dL (0.55-1.02); EST Glomerular Filtration Rate 70 mL/min (>60); Est Glom Filt Rate - Afr Amer 85 mL/min (>60); Globulin 3.3 g/dL (2.2-4.2); Glucose 104 mg/dL (74-106); Potassium 3.7 mmol/L (3.5-5.1); Sodium Level 139 mmol/L (136-145)
== END ==
PROVIDERS: Family Provider Internal Medicine; PCP Internal Medicine; Referring Provider Internal Medicine Rheumatology; Visit Provider Internal Medicine Rheumatology
DX: M06.4 Inflammatory polyarthropathy (principal); E78.5 Hyperlipidemia, unspecified; F32.89 Other specified depressive episodes; G47.33 Obstructive sleep apnea (adult) (pediatric); K58.9 Irritable bowel syndrome, unspecified; M25.561 Pain in right knee; M35.3 Polymyalgia rheumatica
CPT/HCPCS: 36415; 80053; 85025

== ENCOUNTER → 2019-04-06 10:24 | Outpatient (CLI) | payer MEDICARE, OTHER, SELFPAY ==
[2019-03-24 10:18] VITALS: BMI 26.2
[2019-04-04 09:42] VITALS: BMI 26.2
--- NOTE | 2019-04-06 10:32 | BI_ITS ---
MAMMOGRAPHY - BILATERAL SCREENING REASON FOR EXAM: Female, 73 years old. Routine annual screening examination. PERTINENT HISTORY: Non-contributory. TECHNIQUE: Digital bilateral breast nir (3D mammographic acquisition) in the CC and MLO projections. 2-D mediolateral oblique (MLO) and craniocaudad (CC) views of both breasts were obtained. CAD: Full Field Digital Mammography with Computer Added Detection was performed. COMPARISON: Comparison is made with prior study July 05, 2018 and April 01, 2017. FINDINGS: Breast Composition: The breasts are extremely dense, which lowers the sensitivity of mammography. There are no dominant masses or suspicious calcifications. Stable scattered calcifications in both breasts. No other significant abnormalities are identified. There has been no significant change since the prior study. BI/SCREEN MAMM (CAD) W/NIR BILAT IMPRESSION: Stable bilateral screening mammogram. Yearly follow-up mammogram recommended. (A) ASSESSMENT CATEGORY: BIRADS Category 2: Benign. A letter regarding these results will be sent to the patient by the facility within 30 days. Approximately 10% of breast cancers are not detected by mammography. A normal mammogram should not delay biopsy of a clinically suspicious abnormality. [id number] Electronically Signed: Renny Bell, at 12:40 EDT , Service support ,
== END ==
PROVIDERS: Family Provider Internal Medicine; PCP Internal Medicine; Referring Provider Internal Medicine; Visit Provider Internal Medicine
DX: Z12.31 Encounter for screening mammogram for malignant neoplasm of breast (principal)
CPT/HCPCS: 77063; 77067

== ENCOUNTER 2019-06-24 18:05 | Emergency (ER) | payer MEDICARE, OTHER, SELFPAY ==
[2019-05-23 12:06] VITALS: BMI 26.2
[2019-06-24 18:06] VITALS: BP 143/86; PULSE 86; RESP 17; TEMP 36.4; O2SAT 95; BMI 25.4
--- NOTE | 2019-06-24 18:46 | CT_ITS ---
STUDY: CT ABDOMEN AND PELVIS WITH CONTRAST REASON FOR EXAM: Female, 74 years old. Abdominal pain bloating and diarrhea RADIATION DOSAGE (If Supplied By Facility): CTDIvol = ( 15.52 ) mGy, DLP = ( 752.31 ) mGycm TECHNIQUE: Transaxial images were obtained from the dome of the diaphragm to the symphysis pubis with oral contrast. IV/Oral Isovue 300 100ml was administered. Sagittal and coronal images were reconstructed. Individualized dose optimization techniques were used for this CT. COMPARISON: None. FINDINGS: The visualized lung bases are unremarkable. The visualized portions of the heart are within normal limits. Normal liver. Normal gallbladder and extrahepatic biliary system. Normal spleen. Normal pancreas. Normal bilateral adrenal glands. Normal right kidney. Normal left kidney. Normal visualized stomach. Normal small intestine. There are postsurgical changes of the rectosigmoid. Liquid stool is seen in the right-sided colon. There is non-visualization of the appendix. There are calcified plaques of the abdominal aorta. Normal inferior vena cava. Normal retroperitoneum. Normal urinary bladder. Normal abdominal wall. There are degenerative changes of the lumbar spine at the L2-[address]/Abdomen/Pelvis WITH Contrast IMPRESSION: 1. Postsurgical changes of the rectosigmoid. Liquid stool is seen in the right-sided colon. 2. Degenerative changes of the lumbar spine at the L2-3 level. 3. There is no evidence of free intra-abdominal or intrapelvic air, fluid, or inflammatory process. Electronically Signed: Oniel Arcos MD at 21:45 EST , Service support ,
--- NOTE | 2019-06-24 19:05 | ED.VISSUMM ---
- ER Visit Summary Date of Service: 06/24/19 Chief Complaint: Diarrhea History of Present Illness: The patient is a 74 F who presents with diarrhea that has been constant for the past 3 to 4 days. Patient states she has had multiple episodes of watery diarrhea. Patient denies any pain. Patient denies any nausea or vomiting. Patient denies any melena or hematochezia. Patient denies any dysuria or hematuria. Patient denies any fevers or chills. Patient denies any back pain. Physical Examination: Vital signs are stable. Patient is afebrile. Patient is in no acute distress. Oral mucosa is pink and moist. Neck is supple. Trachea is midline. There is no JVD. Heart was regular rate and rhythm. Lungs are clear and equal bilaterally. Abdomen is soft. Bowel sounds are normal. There is no tenderness. There is no guarding noted. Cranial nerves II through XII are intact. There are no focal motor or sensory deficits noted. Test Results: CBC and comprehensive metabolic profile were essentially within normal limits. AST was slightly elevated at 52 and ALT was slightly elevated at 83. Urinalysis does not show any evidence of urinary tract infection. CT scan of the abdomen and pelvis was obtained. There is no acute process noted. This was interpreted by the radiologist and reviewed by myself. Emergency Department Course and Treatment: Patient was given IV fluids. Patient felt better on reevaluation. Patient was advised that this is most likely a viral illness. Patient was instructed to follow-up with her primary care physician in 5 to 7 days. Patient understood and was agreeable with the plan. All questions were answered. Disposition: Discharge home Impression: Diarrhea This note was generated with [employer] dictation software. It may contain incorrect words, spelling, and punctuation that were not noted in review of the chart prior to signing ED Disposition - Plan for ED Patient: Disposition: Home or Assisted Living Diagnosis: Diarrhea Instructions: DIARRHEA, Viral (Child) (Adult) Referrals: Berta Sofia MD [Primary Care Provider] - 3-5 Days
[2019-06-24 19:26] LABS: Bacteria 0 SEEN /hpf (None Seen); Red Blood Cells-Urine 0 SEEN /hpf (0-5)
[2019-06-24 19:32] LABS: Absolute Lymphocyte Count 1.96 X10^3/uL (0.83-4.51); Absolute Neutrophil Count 4.8 X10^3/uL (2.0-7.7); Basophil# 0.04 X10^3/uL; Basophil% 0.5 % (0-1); Eosinophil# 0.24 X10^3/uL; Eosinophils% 3.2 % (0-5); Hematocrit 45.7 % (37-47); Hemoglobin 15.2 g/dL (12.0-15.0); Lymphocyte # 1.96 X10^3/ul (4.0); Mean Corp Hgb Conc 33.3 g/dL (32-36); Mean Corpuscular Hgb 27.7 pg (27.0-32.0); Mean Corpuscular Volume 83.4 fL (81-99); Mean Platelet Vol. 8.5 fl (6.2-12.0); Monocyte# 0.46 X10^3/uL; Monocyte% 6.1 % (0-10); NRBC Flagged by Analyzer 0 % (0-5); Neutrophil # 4.81 X10^3/uL (2.7-7.7); Neutrophil % 63.8 % (47-70); Platelet Count 210 K/mm3 (150-450); RBC Distribution Width CV 13.9 % (11.6-14.6); RBC Distribution Width SD 42.1 fl (35.1-43.9); Red Blood Count 5.48 M/mm3 (4.2-5.4); White Blood Count 7.5 K/mm3 (4.4-11.0)
[2019-06-24 19:34] LABS: Color, Urine Yellow (Yellow); Glucose, Dipstick Normal (Normal); Ketone-Dipstick Negative (Negative); Leukocyte Esterase-Dipstick 500 /ul (Negative); Nitrite-Dipstick Negative (Negative); Occult Blood-Urine Negative /ul (Negative); Protein-Dipstick Negative (Negative); Urine Bilirubin Dipstick Negative (Negative); Urine Clarity Clear (Clear); Urine Urobilinogen Normal (Normal)
[2019-06-24 19:42] LABS: Calcium Oxalate Crystals Ur 1+ /hpf (<or=2+); Mucous, Urine RARE /hpf (<or=2+); Squamous Epithelial Cells - UA 0-5 SEEN /hpf (5-10); White Blood Cells 0-5 SEEN /hpf (0-5)
[2019-06-24 19:50] LABS: ALB/GLOB Ratio 1.1 RATIO (0.9-2.4); AST(SGOT) 52 U/L (15-37); Alanine Aminotransfer ALT/SGPT 83 U/L (13-56); Albumin, Serum 3.8 g/dL (3.2-5.0); Alkaline Phosphatase 52 U/L (45-117); Anion Gap 8 (5-15); BUN 18 mg/dL (7-18); Calcium,Total 9.3 mg/dL (8.5-10.1); Chloride 109 mmol/L (98-107); Creatinine, Serum 0.82 mg/dL (0.55-1.02); EST Glomerular Filtration Rate 72 mL/min (>60); Est Glom Filt Rate - Afr Amer 88 mL/min (>60); Estimated Creatinine Clearance 49.04 ml/min; Globulin 3.4 g/dL (2.2-4.2); Glucose 101 mg/dL (74-106); Lipase 74 U/L (73-393); Potassium 3.8 mmol/L (3.5-5.1); Protein, Total 7.2 g/dL (6.4-8.2); Sodium Level 142 mmol/L (136-145)
[2019-06-24 21:33] VITALS: BP 157/74; PULSE 63; RESP 14; O2SAT 95
== END 2019-06-24 22:20 | disposition home or self-care (01) ==
PROVIDERS: Emergency Provider Emergency Medicine; Family Provider Internal Medicine; PCP Internal Medicine
DX: R19.7 Diarrhea, unspecified (principal); I10 Essential (primary) hypertension; Z79.82 Long term (current) use of aspirin; Z79.899 Other long term (current) drug therapy
CPT/HCPCS: 74177; 80053; 81001; 83690; 85025; 99283; Q9967; A4216

== ENCOUNTER → 2019-08-14 14:49 | Outpatient (CLI) | payer MEDICARE, OTHER, SELFPAY ==
[2019-08-14 13:53] VITALS: BMI 27.1
--- NOTE | 2019-08-14 14:52 | RAD_ITS ---
STUDY: X-RAY - RIGHT KNEE REASON FOR EXAM: Female, 74 years old. bilateral knee pain TECHNIQUE: 2 view(s) of the knee. COMPARISON: None. FINDINGS: Normal visualized distal femur. Normal visualized proximal tibia and fibula. Normal proximal tibiofibular articulation. There are severe degenerative changes with joint space narrowing of the medial knee compartment. Normal lateral femorotibial compartment. Normal patellofemoral articulation. There may be a small suprapatellar effusion. The soft tissue structures are unremarkable. RAD/Knee 1 or 2 Views IMPRESSION: Severe degenerative changes with joint space narrowing of the medial knee compartment. There may be a small suprapatellar effusion. Electronically Signed: Oniel Arcos MD at 23:49 EST , Service support ,
--- NOTE | 2019-08-14 14:56 | RAD_ITS ---
STUDY: X-RAY - LEFT KNEE REASON FOR EXAM: Female, 74 years old. bilateral knee pain TECHNIQUE: 2 view(s) of the knee. COMPARISON: None. FINDINGS: Normal visualized distal femur. Normal visualized proximal tibia and fibula. Normal proximal tibiofibular articulation. There are moderately severe degenerative changes or joint space narrowing of the medial knee compartment. Normal lateral femorotibial compartment. Normal patellofemoral articulation. The soft tissue structures are unremarkable. RAD/Knee 1 or 2 Views IMPRESSION: Moderately severe degenerative changes with joint space narrowing of the medial knee compartment. Electronically Signed: Oniel Arcos MD at 23:48 EST , Service support ,
[2019-08-14 17:33] LABS: Absolute Lymphocyte Count 1.61 X10^3/uL (0.83-4.51); Absolute Neutrophil Count 5.1 X10^3/uL (2.0-7.7); Basophil# 0.08 X10^3/uL; Basophil% 1.1 % (0-1); Eosinophil# 0.24 X10^3/uL; Eosinophils% 3.2 % (0-5); Hematocrit 42.2 % (37-47); Hemoglobin 14.6 g/dL (12.0-15.0); Lymphocyte # 1.61 X10^3/ul (4.0); Lymphocyte % 21.6 % (19-41); Mean Corp Hgb Conc 34.6 g/dL (32-36); Mean Corpuscular Hgb 28.2 pg (27.0-32.0); Mean Corpuscular Volume 81.6 fL (81-99); Mean Platelet Vol. 8.7 fl (6.2-12.0); Monocyte# 0.44 X10^3/uL; Monocyte% 5.9 % (0-10); NRBC Flagged by Analyzer 0 % (0-5); Neutrophil # 5.05 X10^3/uL (2.7-7.7); Neutrophil % 67.9 % (47-70); Platelet Count 201 K/mm3 (150-450); RBC Distribution Width CV 14.2 % (11.6-14.6); RBC Distribution Width SD 40.9 fl (35.1-43.9); Red Blood Count 5.17 M/mm3 (4.2-5.4); White Blood Count 7.4 K/mm3 (4.4-11.0)
[2019-08-14 17:50] LABS: ALB/GLOB Ratio 1.2 RATIO (0.9-2.4); AST(SGOT) 28 U/L (15-37); Alanine Aminotransfer ALT/SGPT 47 U/L (13-56); Albumin, Serum 3.8 g/dL (3.2-5.0); Alkaline Phosphatase 54 U/L (45-117); Anion Gap 6 (5-15); BUN 17 mg/dL (7-18); BUN/Creat Ratio 19.7 RATIO (10-20); Calcium,Total 9.1 mg/dL (8.5-10.1); Chloride 106 mmol/L (98-107); Creatinine, Serum 0.86 mg/dL (0.55-1.02); EST Glomerular Filtration Rate 68 mL/min (>60); Est Glom Filt Rate - Afr Amer 82 mL/min (>60); Globulin 3.3 g/dL (2.2-4.2); Glucose 100 mg/dL (74-106); Potassium 3.7 mmol/L (3.5-5.1); Protein, Total 7.1 g/dL (6.4-8.2); Sodium Level 139 mmol/L (136-145)
== END ==
PROVIDERS: Internal Medicine Rheumatology; Family Provider Internal Medicine; PCP Internal Medicine; Referring Provider Internal Medicine; Visit Provider Internal Medicine
DX: M17.0 Bilateral primary osteoarthritis of knee (principal); M06.4 Inflammatory polyarthropathy; M35.3 Polymyalgia rheumatica; F32.89 Other specified depressive episodes; E78.5 Hyperlipidemia, unspecified; K58.9 Irritable bowel syndrome, unspecified; G47.33 Obstructive sleep apnea (adult) (pediatric)
CPT/HCPCS: 36415; 73560; 80053; 85025

== ENCOUNTER → 2020-02-05 14:59 | Outpatient (CLI) | payer OTHER, MEDICARE, SELFPAY ==
[2020-01-09 06:39] VITALS: BMI 24.6
[2020-02-05 18:06] LABS: Absolute Lymphocyte Count 1.27 X10^3/uL (0.83-4.51); Basophil# 0.04 X10^3/uL; Basophil% 0.5 % (0-1); Eosinophil# 0.11 X10^3/uL; Eosinophils% 1.4 % (0-5); Hematocrit 41.9 % (37-47); Lymphocyte # 1.27 X10^3/ul (4.0); Lymphocyte % 16.6 % (19-41); Mean Corp Hgb Conc 33.4 g/dL (32-36); Mean Corpuscular Hgb 28.6 pg (27.0-32.0); Mean Corpuscular Volume 85.7 fL (81-99); Mean Platelet Vol. 9.1 fl (6.2-12.0); Monocyte# 0.27 X10^3/uL; Monocyte% 3.5 % (0-10); NRBC Flagged by Analyzer 0 % (0-5); Neutrophil # 5.95 X10^3/uL (2.7-7.7); Neutrophil % 77.7 % (47-70); Platelet Count 256 K/mm3 (150-450); RBC Distribution Width SD 40.2 fl (35.1-43.9); Red Blood Count 4.89 M/mm3 (4.2-5.4); White Blood Count 7.7 K/mm3 (4.4-11.0)
[2020-02-05 18:19] LABS: ALB/GLOB Ratio 1.1 RATIO (0.9-2.4); AST(SGOT) 23 U/L (15-37); Alanine Aminotransfer ALT/SGPT 31 U/L (13-56); Albumin, Serum 3.8 g/dL (3.2-5.0); Alkaline Phosphatase 54 U/L (45-117); Anion Gap 6 (5-15); BUN 16 mg/dL (7-18); BUN/Creat Ratio 22.1 RATIO (10-20); Calcium,Total 9.1 mg/dL (8.5-10.1); Chloride 106 mmol/L (98-107); Creatinine, Serum 0.72 mg/dL (0.55-1.02); EST Glomerular Filtration Rate 83 mL/min (>60); Est Glom Filt Rate - Afr Amer 101 mL/min (>60); Globulin 3.4 g/dL (2.2-4.2); Glucose 89 mg/dL (74-106); Potassium 4.1 mmol/L (3.5-5.1); Protein, Total 7.2 g/dL (6.4-8.2); Sodium Level 139 mmol/L (136-145)
== END ==
PROVIDERS: PCP Internal Medicine; Referring Provider Internal Medicine Rheumatology; Visit Provider Internal Medicine Rheumatology
DX: M06.4 Inflammatory polyarthropathy (principal); M35.3 Polymyalgia rheumatica; F32.89 Other specified depressive episodes; E78.5 Hyperlipidemia, unspecified; K58.9 Irritable bowel syndrome, unspecified; G47.33 Obstructive sleep apnea (adult) (pediatric)
CPT/HCPCS: 36415; 80053; 85025

== ENCOUNTER → 2020-08-07 11:32 | Outpatient (CLI) | payer MEDICARE, OTHER, SELFPAY ==
[2020-02-15 13:33] VITALS: BMI 25.0
[2020-08-07 15:32] LABS: Absolute Lymphocyte Count 1.67 X10^3/uL (0.83-4.51); Absolute Neutrophil Count 3.6 X10^3/uL (2.0-7.7); Basophil# 0.07 X10^3/uL; Basophil% 1.2 % (0-1); Eosinophil# 0.24 X10^3/uL; Hematocrit 44.6 % (37-47); Hemoglobin 14.4 g/dL (12.0-15.0); Lymphocyte # 1.67 X10^3/ul (4.0); Lymphocyte % 27.7 % (19-41); Mean Corp Hgb Conc 32.3 g/dL (32-36); Mean Corpuscular Hgb 27.5 pg (27.0-32.0); Mean Corpuscular Volume 85.1 fL (81-99); Mean Platelet Vol. 8.8 fl (6.2-12.0); Monocyte# 0.38 X10^3/uL; Monocyte% 6.3 % (0-10); NRBC Flagged by Analyzer 0 % (0-5); Neutrophil # 3.64 X10^3/uL (2.7-7.7); Neutrophil % 60.5 % (47-70); Platelet Count 235 K/mm3 (150-450); RBC Distribution Width SD 40.2 fl (35.1-43.9); Red Blood Count 5.24 M/mm3 (4.2-5.4)
[2020-08-07 16:04] LABS: ALB/GLOB Ratio 1.1 RATIO (0.9-2.4); AST(SGOT) 19 U/L (15-37); Alanine Aminotransfer ALT/SGPT 31 U/L (13-56); Albumin, Serum 3.8 g/dL (3.2-5.0); Alkaline Phosphatase 55 U/L (45-117); Anion Gap 7 (5-15); BUN 19 mg/dL (7-18); BUN/Creat Ratio 21.1 RATIO (10-20); Calcium,Total 9.1 mg/dL (8.5-10.1); Chloride 107 mmol/L (98-107); EST Glomerular Filtration Rate 65 mL/min (>60); Est Glom Filt Rate - Afr Amer 78 mL/min (>60); Globulin 3.4 g/dL (2.2-4.2); Glucose 101 mg/dL (74-106); Potassium 3.8 mmol/L (3.5-5.1); Protein, Total 7.2 g/dL (6.4-8.2); Sodium Level 142 mmol/L (136-145)
== END ==
PROVIDERS: PCP Internal Medicine; Referring Provider Internal Medicine Rheumatology; Visit Provider Internal Medicine Rheumatology
DX: M06.4 Inflammatory polyarthropathy (principal); M35.3 Polymyalgia rheumatica; F32.89 Other specified depressive episodes; E78.5 Hyperlipidemia, unspecified; K58.9 Irritable bowel syndrome, unspecified; G47.33 Obstructive sleep apnea (adult) (pediatric)
CPT/HCPCS: 36415; 80053; 85025

== ENCOUNTER → 2020-08-15 14:14 | Outpatient (CLI) | payer MEDICARE, OTHER, SELFPAY ==
[2020-08-15 15:51] LABS: Cholesterol 247 mg/dL (200); High Density Lipoprotein 58 mg/dL; Triglycerides 313 mg/dL; Very Low Density Lipoprotein 63 mg/dL (5-40)
== END ==
PROVIDERS: PCP Internal Medicine; Referring Provider Internal Medicine; Visit Provider Internal Medicine
DX: E78.5 Hyperlipidemia, unspecified (principal)
CPT/HCPCS: 36415; 80061

== ENCOUNTER → 2020-11-14 15:19 | Outpatient (CLI) | payer MEDICARE, OTHER, SELFPAY ==
[2020-11-14 14:25] VITALS: BMI 25.1
[2020-11-14 16:41] LABS: Absolute Lymphocyte Count 1.83 X10^3/uL (0.83-4.51); Absolute Neutrophil Count 3.9 X10^3/uL (2.0-7.7); Basophil# 0.05 X10^3/uL; Basophil% 0.8 % (0-1); Eosinophil# 0.21 X10^3/uL; Eosinophils% 3.3 % (0-5); Hematocrit 42.8 % (37-47); Hemoglobin 14.1 g/dL (12.0-15.0); Lymphocyte # 1.83 X10^3/ul (0.83-4.51); Lymphocyte % 28.4 % (19-41); Mean Corp Hgb Conc 32.9 g/dL (32-36); Mean Corpuscular Hgb 28.3 pg (27.0-32.0); Mean Corpuscular Volume 85.8 fL (81-99); Mean Platelet Vol. 8.8 fl (6.2-12.0); Monocyte# 0.43 X10^3/uL; Monocyte% 6.7 % (0-10); NRBC Flagged by Analyzer 0 % (0-5); Neutrophil % 60.3 % (47-70); Platelet Count 237 K/mm3 (150-450); RBC Distribution Width CV 13.2 % (11.6-14.6); RBC Distribution Width SD 41.3 fl (35.1-43.9); Red Blood Count 4.99 M/mm3 (4.2-5.4); White Blood Count 6.5 K/mm3 (4.4-11.0)
[2020-11-14 17:01] LABS: ALB/GLOB Ratio 1.2 RATIO (0.9-2.4); AST(SGOT) 18 U/L (15-37); Alanine Aminotransfer ALT/SGPT 31 U/L (13-56); Albumin, Serum 3.9 g/dL (3.2-5.0); Alkaline Phosphatase 56 U/L (45-117); Anion Gap 3 (5-15); BUN 20 mg/dL (7-18); BUN/Creat Ratio 24.2 RATIO (10-20); Calcium,Total 9.3 mg/dL (8.5-10.1); Chloride 108 mmol/L (98-107); Creatinine, Serum 0.83 mg/dL (0.55-1.02); EST Glomerular Filtration Rate 71 mL/min (>60); Est Glom Filt Rate - Afr Amer 86 mL/min (>60); Ferritin 63 ng/mL (8-252); Globulin 3.3 g/dL (2.2-4.2); Glucose 75 mg/dL (74-106); Iron 82 ug/dL (50-170); Iron Binding Capacity,Total 350 ug/dL (250-450); Potassium 4.1 mmol/L (3.5-5.1); Protein, Total 7.2 g/dL (6.4-8.2); Sodium Level 141 mmol/L (136-145)
== END ==
PROVIDERS: PCP Internal Medicine; Referring Provider Internal Medicine; Visit Provider Internal Medicine
DX: D64.9 Anemia, unspecified (principal)
CPT/HCPCS: 36415; 80053; 82728; 83540; 83550; 85025

== ENCOUNTER → 2021-02-10 15:10 | Outpatient (CLI) | payer MEDICARE, OTHER, SELFPAY ==
[2021-01-09 07:49] VITALS: BMI 25.2
[2021-02-10 17:36] LABS: Absolute Lymphocyte Count 1.77 X10^3/uL (0.83-4.51); Absolute Neutrophil Count 4.2 X10^3/uL (2.0-7.7); Basophil# 0.05 X10^3/uL; Basophil% 0.8 % (0-1); Hematocrit 39.7 % (37-47); Hemoglobin 13.3 g/dL (12.0-15.0); Lymphocyte # 1.77 X10^3/ul (0.83-4.51); Lymphocyte % 26.7 % (19-41); Mean Corp Hgb Conc 33.5 g/dL (32-36); Mean Corpuscular Hgb 28.1 pg (27.0-32.0); Mean Corpuscular Volume 83.8 fL (81-99); Mean Platelet Vol. 9.2 fl (6.2-12.0); Monocyte# 0.38 X10^3/uL; Monocyte% 5.7 % (0-10); NRBC Flagged by Analyzer 0 % (0-5); Neutrophil % 63.5 % (47-70); Platelet Count 240 K/mm3 (150-450); RBC Distribution Width CV 13.3 % (11.6-14.6); RBC Distribution Width SD 40.7 fl (35.1-43.9); Red Blood Count 4.74 M/mm3 (4.2-5.4); White Blood Count 6.6 K/mm3 (4.4-11.0)
[2021-02-10 18:34] LABS: ALB/GLOB Ratio 1.1 RATIO (0.9-2.4); AST(SGOT) 25 U/L (15-37); Alanine Aminotransfer ALT/SGPT 31 U/L (13-56); Albumin, Serum 3.6 g/dL (3.2-5.0); Alkaline Phosphatase 61 U/L (45-117); Anion Gap 6 (5-15); BUN 17 mg/dL (7-18); BUN/Creat Ratio 19.8 RATIO (10-20); Calcium,Total 8.5 mg/dL (8.5-10.1); Chloride 107 mmol/L (98-107); Creatinine, Serum 0.86 mg/dL (0.55-1.02); EST Glomerular Filtration Rate 68 mL/min (>60); Est Glom Filt Rate - Afr Amer 82 mL/min (>60); Globulin 3.4 g/dL (2.2-4.2); Glucose 86 mg/dL (74-106); Potassium 3.9 mmol/L (3.5-5.1); Sodium Level 140 mmol/L (136-145)
== END ==
PROVIDERS: PCP Internal Medicine; Referring Provider Internal Medicine Rheumatology; Visit Provider Internal Medicine Rheumatology
DX: M06.4 Inflammatory polyarthropathy (principal); M35.3 Polymyalgia rheumatica; E78.5 Hyperlipidemia, unspecified; K58.9 Irritable bowel syndrome, unspecified; G47.33 Obstructive sleep apnea (adult) (pediatric)
CPT/HCPCS: 36415; 80053; 85025

== ENCOUNTER → 2021-02-13 14:15 | Outpatient (CLI) | payer MEDICARE, OTHER, SELFPAY ==
[2021-02-13 13:46] VITALS: BMI 25.2
[2021-02-13 15:55] LABS: Cholesterol 211 mg/dL (200); High Density Lipoprotein 54 mg/dL; Triglycerides 308 mg/dL; Very Low Density Lipoprotein 62 mg/dL (5-40)
== END ==
PROVIDERS: PCP Internal Medicine; Referring Provider Internal Medicine; Visit Provider Internal Medicine
DX: E78.5 Hyperlipidemia, unspecified (principal)
CPT/HCPCS: 36415; 80061

== ENCOUNTER → 2021-03-10 14:56 | Outpatient (CLI) | payer MEDICARE, OTHER, SELFPAY ==
[2021-02-13 13:46] VITALS: BMI 25.2
[2021-03-03 15:21] VITALS: BMI 25.2
--- NOTE | 2021-03-10 15:15 | CT_ITS ---
STUDY: CT RIGHT LOWER EXTREMITY WITHOUT CONTRAST REASON FOR EXAM: Right knee osteoarthritis, surgical planning. TECHNIQUE: Transaxial CT imaging of the lower extremity was performed. Coronal and sagittal images were reformatted. Individualized dose optimization techniques were used for this CT. COMPARISON: Radiographs 02/24/2021. FINDINGS: Knee: There is arthrosis of the medial femorotibial compartment with marginal osteophytes, subchondral eburnation and joint space narrowing (coronal reconstructions 27-30). There are small marginal osteophytes of the lateral femoral condyle with preservation of the articular joint space of the lateral knee compartment. There are small marginal osteophytes of the patellofemoral compartment with joint space narrowing at the medial aspect of the compartment (axial images 224-226). Normal proximal tibiofibular articulation. There is a small joint effusion. The quadriceps tendon is grossly normal. The patellar tendon is grossly normal. Normal Hoffa''s fat pad. There is an intra-articular body in the distal popliteus tendon sheath (coronal reconstructions 35, 36). There is a small intra-articular body at the posterior aspect of the lateral femorotibial compartment (sagittal reconstruction 27). There is mild vascular calcification. Hip: There is left hip arthrosis with small marginal osteophytes of the femoral head and joint space narrowing (coronal reconstruction 72). Ankle: Normal tibiotalar, posterior subtalar, talonavicular and calcaneocuboid articulations. There is vascular calcification. CT/Extremity Lower without Contra IMPRESSION: Osteoarthritis of the right knee. Electronically Signed: Mike Wright MD at 11:41 EDT Tel , Service support ,
== END ==
PROVIDERS: PCP Internal Medicine; Referring Provider Orthopaedic Surgery; Visit Provider Orthopaedic Surgery
DX: M17.11 Unilateral primary osteoarthritis, right knee (principal); G89.29 Other chronic pain
CPT/HCPCS: 73700

== ENCOUNTER 2021-04-08 12:12 | Inpatient (IN) | payer MEDICARE, OTHER, SELFPAY ==
[2021-02-13 13:46] VITALS: BMI 25.2
--- NOTE | 2021-03-24 13:59 | EKG12_ITS ---
Test Reason : PRE-OP Blood Pressure : / mmHG Vent. Rate : 066 BPM Atrial Rate : 066 BPM P-R Int : 152 ms QRS Dur : 084 ms QT Int : 452 ms P-R-T Axes : 015 008 049 degrees QTc Int : 473 ms Normal sinus rhythm Low voltage QRS Borderline ECG Confirmed by ALFONSO RIVERA, HEATHER ([id number]), magazine editor DONALD COLLIER ([id number]) on 03/25/2021 7:58:04 AM Referred By: Carlos Mcgee Confirmed By:HEATHER HAMILTON MD
[2021-03-24 15:18] LABS: Absolute Lymphocyte Count 1.64 X10^3/uL (0.83-4.51); Absolute Neutrophil Count 4.9 X10^3/uL (2.0-7.7); Basophil# 0.06 X10^3/uL; Basophil% 0.8 % (0-1); Eosinophil# 0.27 X10^3/uL; Eosinophils% 3.7 % (0-5); Hematocrit 39.9 % (37-47); Hemoglobin 13.5 g/dL (12.0-15.0); Lymphocyte # 1.64 X10^3/ul (0.83-4.51); Lymphocyte % 22.3 % (19-41); Mean Corp Hgb Conc 33.8 g/dL (32-36); Mean Corpuscular Hgb 28.2 pg (27.0-32.0); Mean Corpuscular Volume 83.5 fL (81-99); Mean Platelet Vol. 8.7 fl (6.2-12.0); Monocyte# 0.41 X10^3/uL; Monocyte% 5.6 % (0-10); NRBC Flagged by Analyzer 0 % (0-5); Neutrophil # 4.93 X10^3/uL (2.7-7.7); Neutrophil % 67.2 % (47-70); Platelet Count 278 K/mm3 (150-450); RBC Distribution Width CV 13.2 % (11.6-14.6); RBC Distribution Width SD 40.4 fl (35.1-43.9); Red Blood Count 4.78 M/mm3 (4.2-5.4); White Blood Count 7.3 K/mm3 (4.4-11.0)
[2021-03-24 15:26] LABS: International Normalized Ratio 1.1; Partial Thromboplast Time 29.9 Seconds (24.1-36.2); Prothrombin Time (Protime)PT. 13.2 SECONDS (11.7-14.9)
[2021-03-24 15:42] LABS: Anion Gap 6 (5-15); BUN 17 mg/dL (7-18); BUN/Creat Ratio 21.1 RATIO (10-20); Chloride 106 mmol/L (98-107); EST Glomerular Filtration Rate 73 mL/min (>60); Est Glom Filt Rate - Afr Amer 89 mL/min (>60); Glucose 75 mg/dL (74-106); Potassium 3.8 mmol/L (3.5-5.1); Sodium Level 139 mmol/L (136-145)
[2021-03-26 09:39] LABS: Fructosamine 223 umol/L (0-285)
[2021-04-08] VITALS (14 sets, daily range): BP systolic 114–154; BP diastolic 53–98; PULSE 59–79; RESP 14–18; TEMP 36.1–36.8; O2SAT 94–100; BMI 25.6
--- NOTE | 2021-04-08 07:29 | HP.PCM_ITS ---
History and Physical Date of Admission: 04/08/21 Date of Service: 02/24/21 MR#:[id number]:[id number]: BRANDI SWEENEY [facility] #:[id number]:[id number] Provider:Dr. Carlos Mcgee DOAge/Sex: 75/F Location:[facility]:Signed Intake Intake Visit Reasons: bilat knee Is patient in pain?: Yes Allergies No Known Allergies Allergy (Verified 02/13/21 13:33) [facility] Medical History (Updated 02/24/21 @ 14:41 by Carissa Allen) Anemia Anxiety associated with depression Back pain Bone fracture Cataracts, bilateral Chronic bronchitis Dyspnea on exertion Gastrointestinal problem GERD (gastroesophageal reflux disease) Hearing problem Hemorrhoids Hyperlipidemia Hypertension IBS (irritable bowel syndrome) Incontinence Knee pain Nicotine dependence in remission Obstructive sleep apnea YOUNG (obstructive sleep apnea) Osteoarthritis Osteoporosis Periodic limb movement disorder (PLMD) Rheumatoid arthritis Shoulder pain Snoring SOB (shortness of breath) Surgical History History of colon surgery history of mastoids in ear History of tubal ligation Hx of LASIK Family History Mother , 75 years Cancer Liver cancer and stomach Angina at rest Anxiety History of blood transfusion Diabetes Hypertension High cholesterol Liver disease Father , 60 years Heart disease NH Angina at rest High cholesterol Brother Heart disease Sister Asthma A CHILD Depression Colon cancer Multiple allergies Brother Pancreatic cancer Social History adopted: No housing: house current occupational status: previously employed current occupational exposures/hazards: No pets and animals: Yes pets and animals: cat(s) and dog(s) Smoking Status: Former smoker quit date: 01/24/99 pack-years: 40 Tobacco: How many years used: 40 how long ago did patient quit smokin second hand exposure: No alcohol intake: never substance use type: does not use caffeine: Yes (3/day) additional social history: USES [employer]IR[employer] HPI bilat knee Details: Parts of this documentation were recorded by a scribe, this documentation accurately reflects the service provided and the decisions made by me, Dr. Carlos Mcgee, 02/24/21 0804. BRANDI SWEENEY is a 75 year old F here today for bilateral knee Pain. Patient was seen on 10/04/2019 for bilateral Durolane knee injections. Patient states the injections did help with the pain for awhile. Patient describe her pain as grabbing. Patient states she is just tired of her knees feeling like this and wants to look into more options. Ortho Exam General General: Yes no acute distress Neurologic: Yes alert Psychologic: Yes reasonable and appropriate Right Knee Skin/Wound: Yes CDI, No erythema, No ecchymosis and Yes swelling Knee ROM: Yes ROM-Extension -20 to 0 (-15) and Yes ROM-Flexion 0-140 (120) Examination: Yes Med jt line tenderness Stability: NML: Reyna and NML: Varus 30 and 1+: Valgus 30 (5mm gapping) Patella Translation: 1 Patella Grind: Yes Left Knee Skin/Wound: Yes CDI, No ecchymosis, No erythema and No swelling Knee ROM: Yes ROM-Extension -20 to 0 and Yes ROM-Flexion 0-140 (120) Examination: Yes med jt line tenderness Stability: NML: Reyna and NML: Varus 30 and 1+: Valgus 30 (3mm gapping) Patella Translation: 1 Supplemental Info Educated the patient about the anatomy of the knee and etiology of her pain. Spoke with the patient about her options- a total knee replacement, bracing vs injections. Spoke with her about the surgery procedure, risks, benefits and recovery. Explained the risk of stiffness and the need for physical therapy following the surgery.Spoke with her about the risks of continued joint pain following a TKA due to rheumatoid arthritis. She is at a slightly elevated risk of infection due to Plaquenil. Patient may need to be admitted and transferred to the TCU due to not having anyone at home and having stairs. She will need to use a walker following her surgery. She would need an antibiotic prior to any dental procedure. Patient wanted to proceed with a TKA. She will need a CT scan prior to her surgery for templating. She is interested in iovera if it is covered by insurance. Follow up for her 2 week post op appointment or sooner if pain, swelling, numbness or associated symptoms, or concerns develop. All questions answered. Patient in agreement of plan. Coding Level of Care Code Off vis,est,level 3 Diagnoses Bilateral primary osteoarthritis of knee M17.0 Rheumatoid arthritis M06.9 Assessment and Plan Assessment and Plan (1) Bilateral primary osteoarthritis of knee: Status: Acute (2) Rheumatoid arthritis: Status: Chronic Plan - Dr. Carlos Mcgee, DO: Educated the patient about the anatomy of the knee and etiology of her pain. Spoke with the patient about her options- a total knee replacement, bracing vs injections. Spoke with her about the surgery procedure, risks, benefits and recovery. Explained the risk of stiffness and the need for physical therapy following the surgery.Spoke with her about the risks of continued joint pain following a TKA due to rheumatoid arthritis. She is at a slightly elevated risk of infection due to Plaquenil. Patient may need to be admitted and transferred to the TCU due to not having anyone at home and having stairs. She will need to use a walker following her surgery. She would need an antibiotic prior to any dental procedure. Due to the patient's advanced age history of shortness of breath ambulatory difficulty secondary to contralateral lower extremity arthrosis rheumatoid arthritis and multiple steps at home recommend patient have inpatient procedure and then transferred to transitional care rehab prior to returning home. Risks, benefits and alternatives of surgery reviewed including but not limited to bleeding, infection, nerve, artery and/or tissue damage, fracture, VTE, mechanical feel of the knee, continued pain, stiffness and expected post- operative course. Patient wanted to proceed with a TKA. She will need a CT scan prior to her surge ry for templating. She is interested in iovera if it is covered by insurance. Follow up for her 2 week post op appointment or sooner if pain, swelling, numbness or associated symptoms, or concerns develop. All questions answered. Patient in agreement of plan. Plan Details Other Orders: Orders: Knee 4 or More Views Today M25.561, M25.562 Knee 4 or More Views Today M25.561, M25.562 02/24/21 1526<Electronically signed by Carlos Mcgee DO>Date Carlos Mcgee DO Cosigner Signature:Date (if applicable) CC: Dr. Berta Sofia MD ~I have re-examined the patient. There are no clinical changes since date of exam
[2021-04-08] MEDS: Lactated Ringers 1,000 ML 100 ML IV ×2 (08:35→11:30)
[2021-04-08] MEDS: Gabapentin 600 MG Tablet PO (08:40)
[2021-04-08] MEDS: Acetaminophen 500 MG Tablet 1000 MG PO ×3 (08:40→23:33)
[2021-04-08] MEDS: Scopolamine 1mg/72hr Patch 1 PATCH TD (08:41)
[2021-04-08] MEDS: Celecoxib 200 MG Capsule 400 MG PO (08:41)
[2021-04-08 09:10] LABS: Bedside Glucose 75 mg/dL (70-110)
--- NOTE | 2021-04-08 10:15 | KNEE_PTH ---
PATIENT: BRANDI SWEENEY LOC: [facility] U#:[id number] AGE/SX: 75/F ROOM: W[facility]317 RE04/08/[address]: Dr. Carlos Mcgee DO : 1945 BED: 1 DIS: 04/10/2021 SPEC #: [id number] RECD: 04/08/21 15:40 STATUS: MARCELO RANDALL #: [id number] AMMY: 04/08/21 10:[address]: Carlos Mcgee DEPT: SURGICAL PATHOLOGY RECD BY: Nani Carreon ENTERED: 04/09/21 08:03 SP TYPE: TOTAL KNEE OTHR DR: Dr. Berta Sofia MD Tissues: Knee, NOS Procedures: Decalcification bone/plaque Surgery Specimen Level IV HEADER OPERATION: ERAS, Total knee Replacement robotic arm assist PRE-OP DIAGNOSIS: Bilateral primary osteoarthritis of knee, Rheumatoid arthritis TISSUE SUBMITTED: Right knee soft tissue and bone MICROSCOPIC DIAGNOSIS Bone and soft tissue, right knee, total knee replacement/resection: Pieces of bone with degenerative osteoarthritic changes. Fibroadipose tissue, fibroconnective tissue and reactive synovial tissue. MARVEL:ramesh 04/17/2021 COMMENT Rheumatoid nodule consistent with rheumatoid arthritis are not seen. Correlation with clinical findings and appropriate follow up are necessary. MICROSCOPIC DESCRIPTION Slides are reviewed. GROSS DESCRIPTION Received is one container designated bone and soft tissue right knee. The specimen consists of multiple fragments of hale-yellow bone measuring in aggregate 14 x 12 x 2 cm. Also in the specimen container are multiple fragments of yellow-white soft tissue measuring in aggregate 5 x 4 x 2 cm. A number of bony fragments contain articular surfaces consistent with tibial plateau and femoral condyle and displaying prominent osteophyte formation, eburnation, and bone erosion. Medical Leader sections are submitted in two cassettes as follows: 1 - soft tissue, 2 - bone after decalcification. / AM:ramesh 04/11/21 TC:5 CPT: 17824, 89644
[2021-04-08] MEDS: Cefazolin 2 GM in 0.9% Normal Saline 100 ML IV (10:20)
[2021-04-08] MEDS: dexAMETHasone 10 MG/ML Vial IV (10:24)
[2021-04-08] MEDS: Bupivacaine Mpf 0.5% 30 ML VIAL (11:55)
[2021-04-08] MEDS: 0.9% Normal Saline (Pres. free 10 ML Vial ×2 (11:55)
[2021-04-08] MEDS: Betamethasone/Betamethasone 30 MG/5 ML Vial (11:55)
[2021-04-08] MEDS: Epinephrine (1 mg/ml) 1 MG/ML VIAL (11:55)
--- NOTE | 2021-04-08 12:06 | RAD_ITS ---
STUDY: X-RAY - RIGHT KNEE REASON FOR EXAM: Female, 75 years old. post op -- AP and Lateral xray of operative knee in PACU TECHNIQUE: 2 view(s) of the knee. COMPARISON: 01/25/2021. FINDINGS: Status post total knee arthroplasty. Surgical hardware intact/well aligned. No acute complications. Postoperative soft tissues with staple line. RAD/Knee 1 or 2 Views IMPRESSION: Uncomplicated right knee arthroplasty Electronically Signed: Percy Barahona DO at 12:45 EDT Tel , Service support ,
--- NOTE | 2021-04-08 12:13 | OP.PCM_ITS ---
Report of Operation Date of Procedure: 04/08/21 Description of Surgical Findings:: Preoperative diagnosis: Right knee DJD Postoperative diagnosis: Same Procedure: Right total knee arthroplasty CT guided Robotic Assisted Implant: Arcelia triathlon press fit, femoral component size2, tibial baseplate size 3, asymmetric patella size 32, polyethylene X3 size 9 CS Anesthesia: Spinal with adductor canal block Tourniquet time: 26 minutes at 300 mmHg Complications: None Condition: Stable to PACU Estimated blood loss: 125 cc Indication for procedure: This is a 75-year-old female with long standing degenerative joint disease of the knee who has failed conservative treatment and wished to proceed with elective total knee arthroplasty. Risk benefits and alternatives were reviewed including; risk of bleeding, infection, nerve artery and tissue damage, continued pain, postoperative stiffness, venous throm boembolism, need for postoperative rehabilitation, mechanical feel to the knee, and expected postoperative course. The operative CT and templating was performed with component sizing Procedure: The patient was met in the preoperative holding area. The operative extremity was identified by both patient and physician and was marked. Patient was met by anesthesia. An adductor canal block was placed by anesthesia postoperatively the patient was brought back to the operating room on a wheeled cart and transferred to the operating table in the supine position. Anesthesia was started. A well-padded tourniquet was placed on the operative extremity. The patient was prepped and draped in the usual sterile fashion. A timeout was called to ensure the proper patient procedure and extremity were being contemplated. An Esmarch was used to exsanguinate the extremity. The tourniquet was inflated. A 10 blade scalpel was used to make a midline incision down through the skin and subcutaneous tissue. Skin retractors placed. Bovie was used to perform meticulous hemostasis. full-thickness flaps were elevated medial and lateral along the joint capsule. A deep blade scalpel was used to perform a medial parapatellar arthrotomy. The knee was brought to full extension. A Bovie was used to release the soft tissues off the most proximal aspect of the medial tibial plateau, a three-quarter inch curved osteotome was also used for this process. The infrapatellar fat pad was excised. The superior fat pad was excised partially anteriorolateraly and portion the anterioromedial pad was elevated from the femur. At this point our intra- articular femoral array was placed of a 45 degree angle proximal and posterior to the medial epicondyle. Our tibial array was placed greater than 1 hands breath below the incision at a 20 degree angle stab incisions were used for this case were attached and checked with the robotic software. Tourniquet was let down. At this point registration moeller were taken throughout the knee as well as checkpoints placed in the femur and tibia once the knee was registered then tensioned the medial and lateral ligaments in extension and 90 degrees of flexion. We then used these numbers to adjust our components within parameters to balance the knee in both flexion and extension once this was done on our monitor we then proceeded with using the robotic arm to make our tibial plateau cut and anterior posterior and chamfer cuts and distal on the femur we then trialed and achieved the desired plan with a well-balanced knee. Lug holes were drilled in the femur the tibia preparation was completed with a fin punch and the patella was prepared by first using a caliper to ensure sufficient bone stock and a patellar reamer to remove the desired amount of bone locals were drilled for an asymmetric poly-. We then brought the knee through range of motion with excellent patellar tracking. We thoroughly irrigated the knee with a trial components were removed a posterior capsular injection with her standard cocktail was performed the aqua Mantis was also used to aid in hemostasis. Betadine rinse was allowed to sit and washed out components were press-fit into place. Aricept rinse was then used followed by several more rate liters of irrigation after it was allowed to sit. Joint capsule was closed with #1 Ethibond [id number] followed by Vicryl in the subcutaneous tissues staple in the skin arrays and checkpoints were removed prior to closure all counts were correct stab incisions were closed with a stable standard dressing in the form of Mepilex for the main incision Xeroform 4 x 4 and Tegaderm over pin site holes. Thigh-high EDWARD hose applied over top of dressing. Patient tolerated the procedure well and was directed to PACU in stable condition no intraoperative complications
[2021-04-08] MEDS: amLODIPine 10 MG Tablet PO (16:04)
[2021-04-08] MEDS: Cefazolin 1 GM/50 ML BAG IV ×2 (16:04→23:33)
[2021-04-08] MEDS: oxyCODONE 5 MG Tablet PO (16:04)
[2021-04-08] MEDS: Pantoprazole Sodium 20 MG Tablet PO (16:04)
[2021-04-08] MEDS: Lactated Ringers 1,000 ML 125 ML IV (20:59)
[2021-04-08] MEDS: Senna/Docusate Sodium 1 Tablet 2 TABLET PO (22:01)
[2021-04-08] MEDS: Pramipexole Di-HCl 0.5 MG Tablet PO (22:01)
[2021-04-09] VITALS (9 sets, daily range): BP systolic 120–135; BP diastolic 57–75; PULSE 53–72; RESP 16–18; TEMP 36.4–36.8; O2SAT 94–98; BMI 25.6
[2021-04-09] MEDS: 0.9% Saline Lock 10 ML Syringe IV ×2 (05:49→09:48)
[2021-04-09 07:18] LABS: Hematocrit 35.3 % (37-47); Hemoglobin 11.7 g/dL (12.0-15.0); Mean Corp Hgb Conc 33.1 g/dL (32-36); Mean Corpuscular Hgb 27.9 pg (27.0-32.0); Mean Platelet Vol. 8.7 fl (6.2-12.0); Platelet Count 255 K/mm3 (150-450); RBC Distribution Width CV 13.1 % (11.6-14.6); RBC Distribution Width SD 39.8 fl (35.1-43.9); White Blood Count 10.5 K/mm3 (4.4-11.0)
--- NOTE | 2021-04-09 07:18 | PCM.PN.ORT ---
Subjective Subjective Seen and examined. No pain. No complaints. No fevers chills nausea vomiting shortness of breath or chest pain Objective Data Objective Data Vital Signs: Vital Signs Temp Pulse Resp BP Pulse Ox 97.6 F L 55 L 16 134/69 H 98 04/09/21 05:51 04/09/21 05:51 04/09/21 05:51 04/09/21 05:51 04/09/21 05:51 Oxygen Flow Rate (L/min) 2 Oxygen Delivery Method Nasal Cannula Weight: 149 lb 4.047 oz Body Mass Index (BMI) 25.6 Intake & Output: Intake and Output for Last 24 Hours 04/07/21 04/08/21 04/09/21 23:59 23:59 23:59 Intake Total 3476.50 / 3476.50 729.17 / 729.17 Output Total 780 / 780 500 / 500 Balance 2696.50 / 2696.50 229.17 / 229.17 Lab / Micro Data Result Diagrams: 04/09/21 07:00 03/24/21 14:15 Labs: Laboratory Results - last 24 hr 04/08/21 08:00: Blood Type A POSITIVE, Antibody Screen NEGATIVE 04/08/21 08:12: POC Glucose 75 04/09/21 07:00: WBC 10.5, RBC 4.20, Hgb 11.7 L, Hct 35.3 L, MCV 84.0, MCH 27.9, MCHC 33.1, RDW Std Deviation 39.8, RDW Coeff of Didier 13.1, Plt Count 255, MPV 8.7 Micro: Microbiology 03/24/21 14:15 Swab (Method) Nasal Screen MRSA/MSSA - Final Radiography Diagnostic Testing: Radiology Impression Knee X-Ray 04/08/21 12:06 IMPRESSION: Uncomplicated right knee arthroplasty Electronically Signed: Percy Barahona DO at 12:45 EDT Tel , Service support , Physical Exam Narrative Dressing clean dry and intact compartment soft neurovascular intact Const alert and oriented x3 General Appearance: cooperative Assessment & Plan Assessment/Plan (1) S/P total knee arthroplasty: QUALIFIERS: Laterality: right Qualified Code(s): Z96.651 - Presence of right artificial knee joint PLAN: Postop day #1 right total knee arthroplasty. Doing well pain control. DVT prophylaxis SCDs EDWARD christinahoda Eliquis 2.5 mg twice daily for 2 weeks postop PT OT weightbearing as tolerated Patient apprehensive about not being approved for rehab as she is of advanced age recently lives alone, does have 12 stairs into the house, concern for safety requesting rehab, I feel this would best benefit the patient. DC to rehab when bed available.
--- NOTE | 2021-04-09 07:21 | EX.PCM.DISCH ---
Discharge Instructions Diet Discharge Diet: No restrictions Activity Keep extremity elevated above heart level: Operative Extremity Dressing / Incision Call your doctor if you observe: Shortness of breath and Chest pain Additional Dressing/Incision Instructions:: Ice and elevate one week while not ambulating. Ambulation is encouraged. Weightbearing as tolerated. Use assistive devise for stability. Encourage FULL knee extension and flexion 1 time EVERY time you get up and down and MULTIPLE times per day. No showering 72 hours after surgery. Begin showering postop day #3. Remove the dressing prior to shower and gently wash with warm water and antibacterial soap then pat dry and place abdominal pad (or plain gauze) and EDWARD hose over top. This is to be done daily. Do not submerge for 3 weeks. If not showering daily after the initial 72 hours then you must clean incision and change dressing daily. Do not allow animals near the incision area. Keep clean. Follow anticoagulation recommendations as prescribed. Do not take any NSAIDs while on blood thinner. Do not take any additional narcotic pain medication other than what was prescribed on your surgery day without discussing with physician. Narcotic medication can be addictive. Do not drink alcohol while taking narcotics. Start physical therapy. If you are not currently scheduled for physical therapy or you are unsure of appointment time please call office [facility] to arrange. Call Dr. Mcgee with any concerns. Follow Up Care Please Follow Up With: Carlos Mcgee DO When: 2 weeks Test Results: Test results from this visit will be discussed in further detail at your follow-up appointment, if applicable. Discharge Plan Admission Admit Date/Time: 04/08/21 12:12 Primary Reason for Your Visit: right total knee arthroplasty Attending Provider: Carlos Mcgee Primary Care Provider: Berta Sofia Discharge Orders/Prescriptions Prescriptions: New oxycodone 5 mg Tablet 5 - 10 mg PO Q4H PRN PRN (Reason: Pain Score 4-10) 5 Days Qty: 50 RF: 0 Eliquis 2.5 mg Tablet 2.5 mg PO BID 15 Days Qty: 30 RF: 0 Continued aspirin [Adult Aspirin Regimen] 81 mg tablet,delayed release (DR/EC) 81 mg PO QDAY RF: 0 hydroxychloroquine [Plaquenil] 200 mg tablet 200 mg PO BID RF: 0 cholecalciferol (vitamin D3) 50 mcg (2,000 unit) capsule 50 mcg PO DAILY RF: 0 ropinirole 1 mg tablet 1 mg PO QHS RF: 0 prednisone 10 mg tablet 10 mg PO DAILY PRN PRN (Reason: Arthritic pain) RF: 0 amlodipine 10 mg tablet 10 mg PO QDAY RF: 0 omeprazole 20 mg capsule,delayed release(DR/EC) 20 mg PO QDAY RF: 0 sertraline 50 mg tablet See Rx Instructions .ROUTE .COMPLEX RF: 0 Discontinued acetaminophen [Tylenol] 325 mg tablet 500 mg PO Q4H PRN (Reason: Pain) RF: 0 Referrals / Follow Up: Berta Sofia MD [Primary Care Provider] -
[2021-04-09 07:54] LABS: Anion Gap 5 (5-15); BUN 10 mg/dL (7-18); BUN/Creat Ratio 14.5 RATIO (10-20); Calcium,Total 8.4 mg/dL (8.5-10.1); Chloride 108 mmol/L (98-107); Creatinine, Serum 0.69 mg/dL (0.55-1.02); EST Glomerular Filtration Rate 88 mL/min (>60); Est Glom Filt Rate - Afr Amer 107 mL/min (>60); Estimated Creatinine Clearance 41.33 ml/min; Glucose 127 mg/dL (74-106); Potassium 4.4 mmol/L (3.5-5.1); Sodium Level 138 mmol/L (136-145)
[2021-04-09] MEDS: Cefazolin 1 GM/50 ML BAG IV (09:48)
[2021-04-09] MEDS: amLODIPine 10 MG Tablet PO (09:49)
[2021-04-09] MEDS: Pantoprazole Sodium 20 MG Tablet PO (09:49)
[2021-04-09] MEDS: APIXABAN 2.5 MG TABLET PO ×2 (09:49→21:55)
[2021-04-09] MEDS: Senna/Docusate Sodium 1 Tablet 2 TABLET PO ×2 (09:49→21:55)
[2021-04-09] MEDS: Cholecalciferol (VIT D3) 25 MCG TABLET (1,000 UNITS) 50 MCG PO (09:50)
[2021-04-09] MEDS: Sertraline 50 MG Tablet 75 MG PO (09:50)
[2021-04-09] MEDS: Acetaminophen 500 MG Tablet 1000 MG PO ×3 (09:54→22:00)
--- NOTE | 2021-04-09 10:09 | CASEMGMT ---
Social Work Assessment Referral Date: 04/09/2021 Date of Assessment: 04/09/2021 Reason for consult: RU Informant: DO Personal Status: SW met with pt to complete initial assessment. Pt is alert and orientated, answers questions appropriately. Pt does appear slightly confused, forgetful. Living Arrangements: Pt states she lives alone in a one story home but has to enter through the basement which has 12 steps to enter. Pt states there are railings for the steps. DME: Walker ADLs: Independent Transportation: Self PCP: Dr. Sofia Pharmacy: Mail Order, is agreeable to getting prescriptions filled at [facility] pharmacy once pt is discharged. Supports: Pt states she has a daughter and SUSAN who live local, states her other children live out of [place]. Substance Abuse Hx: Pt states she used to smoke cigarettes but stopped 25 years ago Mental Health Hx: Pt states little bit when asked about Depression and Anxiety. Pt states she is on Zoloft. Pt states she is doing ok. HHC: None SNF: None SW spoke with pt regarding discharge plans. SW educated pt on RU vs SNF. Patient was provided a list of Rehab Unit providers including quality and resource use data and consistent with the patient?s preferred geographic region, medical needs, and insurance network. Pt's preference is [facility]. RAFAELA placed a call to [facility] with and provided referral. Rehab Unit physician requesting discharge to tomorrow. Pt will need pulse ox test walking and at rest, RN updated. Pt updated that she can discharge to tomorrow. Pt states understanding. RAFAELA placed a call to physician's office and updated staff that pt can discharge to tomorrow. Plan: RU tomorrow Leslie Fuller FLOWER GROWER, FLOWER BUNCHER OR PICKER
--- NOTE | 2021-04-09 11:17 | CASEMGMT ---
Social Work Note Due to pt's confusion/forgetfulness, SW did try to call pt's son Yan who pt stated is her HCPOA. SW dialed number listed for Yan, unable to complete phone call. SW will continue to try to update pt's son Yan. Leslie Fuller MUSIC INSTRUCTOR, MANAGER LINUX
--- NOTE | 2021-04-09 15:00 | NURSING ---
This RN is having trouble getting in contact with patient's family to give an update. The phone number for Yan was not accurate. The patient is not able to provide numbers for her family. A call was made to Dr. Mcgee's office to see if there was an updated number. The number their office gave was not correct either. Will continue to try to find a contact number.
--- NOTE | 2021-04-09 15:15 | NURSING ---
Patient ambulated from therapy room to her inpatient room and the lowest pulse ox dropped was 95%.
--- NOTE | 2021-04-09 16:05 | CASEMGMT ---
Social Work Note RAFAELA reviewed chart to attempt to find accurate numbers for pt's family. RAFAELA found old facesheet with pt's son Eddie Ruano listed. [phone]. SW in to speak with pt. Pt aware that staff is having difficulty finding accurate numbers for pt's family. RAFAELA asked pt if she had another son named Eddie. Pt confirms she does have another son Eddie, gave this worker permission to call Eddie. SW told pt the number listed for Eddie and pt confirms it is an accurate number. RAFAELA placed a call to number listed for Eddie Ruano [phone] and person who answered confirmed it is Eddie Ruano. Eddie aware that pt is at [facility] and wanted clarification on pt going to a step down unit. RAFAELA updated Eddie on pt's plan to discharge to [facility] RU tomorrow. RAFAELA asked Eddie if he had number for pt's other son Yan. Eddie provided this worker with both Yan and Tammy Goyalaro's numbers. Yan Alden number [phone]. Tammy Goyalaro (DIL) number [phone]. Eddie states Tammy is supposed to be coming to [facility] today to drop pt's phone off. RAFAELA updated RN. Leslie Fuller THREAD MARKER, BAKERY ASSOCIATE
--- NOTE | 2021-04-09 18:05 | NURSING ---
This RN was able to get in touch with Yan Ruano, patient's son. Registration was called and his phone number was updated.
[2021-04-09] MEDS: Pramipexole Di-HCl 0.5 MG Tablet PO (21:55)
--- NOTE | 2021-04-09 23:06 | PCS.PANDOC ---
PANDEMIC DOCUMENTATION INITIATED: Date: 03/17/2021 Time: 190
[2021-04-10 02:22] VITALS: BP 118/86; PULSE 74; RESP 16; TEMP 37; O2SAT 98
[2021-04-10 05:37] LABS: Hematocrit 35.5 % (37-47); Hemoglobin 11.7 g/dL (12.0-15.0); Mean Corpuscular Hgb 27.9 pg (27.0-32.0); Mean Corpuscular Volume 84.5 fL (81-99); Mean Platelet Vol. 8.4 fl (6.2-12.0); Platelet Count 235 K/mm3 (150-450); RBC Distribution Width CV 13.2 % (11.6-14.6); RBC Distribution Width SD 40.1 fl (35.1-43.9); White Blood Count 8.5 K/mm3 (4.4-11.0)
--- NOTE | 2021-04-10 07:34 | DS.PCM_ITS ---
Providers Date of Admission: 04/08/21 Primary Care Physician: Dr. Berta Sofia MD Reason For Visit: RT TOTAL KNEE W CLAUDIA Diagnosis Discharge Diagnosis (1) S/P total knee arthroplasty: Status: Acute Code(s): Z96.659 - Presence of unspecified artificial knee joint Qualifiers: Laterality: right Qualified Code(s): Z96.651 - Presence of right artificial knee joint Medications at Discharge Home Medications aspirin 81 mg tablet,delayed release 81 mg PO QDAY 07/19/17 hydroxychloroquine 200 mg tablet 200 mg PO BID 10/03/19 cholecalciferol (vitamin D3) 50 mcg (2,000 unit) capsule 50 mcg PO DAILY 0 02/13/21 ropinirole 1 mg tablet 1 mg PO QHS tab 03/03/21 amlodipine 10 mg PO QDAY 03/11/21 omeprazole 20 mg PO QDAY 03/11/21 prednisone 10 mg PO DAILY PRN PRN 03/11/21 sertraline See Rx Instructions .ROUTE .COMPLEX 03/11/21 apixaban [Eliquis] 2.5 mg PO BID 15 Days #30 tab 04/09/21 oxycodone 5 - 10 mg PO Q4H PRN PRN 5 Days #50 tab 04/09/21 Hospital Course Summary of Care Provided Hospital Course: Ms. Ruano is a 75-year-old female who has long history of degenerative joint disease to the knee who has failed conservative treatment and wished to undergo elective total knee arthroplasty. Patient underwent the aformentioned procedure on the admission date without any intraoperative complications. Patient did receive pre-and postoperative antibiotics which were discontinued within 23 hours postoperatively. Patient did receive [spinal anesthesia as well as an adductor canal block postoperatively]. pain was controlled with IV and transition to p.o. pain medication Patient will be discharged to rehab with oxycodone and will continue Tylenol as well. Patient had minimal intraoperative blood loss and 2gm tranexamic acid was administered there was no need for postoperative blood transfusion Patients vital signs remained stable. Patient was started on both mechanical and chemical DVT per p rophylaxis postoperatively in the form of SCDs EDWARD hose and [Eliquis 2.5 mg twice daily for which she will continue for 2 additional weeks post hospital discharge]. thigh high edward hose placed over top of the meplix silver dressing. This should be removed 72 hrs post operatively and showering begun daily at that time with warm water and antibacterial soap. not to submerge for 3 weeks. To change dressing daily after first dressing change. Patient will follow-up in the office in 2 weeks. No intrahospital complications. Physical Exam Extremity Extremity Narrative: Exam remained unchanged during her stay with an intact clean and dry dressing soft compartments and intact neurovascular status Weight / BMI Weight Weight: 149 lb 4.047 oz Body Mass Index (BMI) 25.6 ABG / Lab / Microbiology Data Result Diagrams: 04/10/21 05:26 04/09/21 07:00 Laboratory: Laboratory Results - last 24 hr 04/09/21 07:00: Sodium 138, Potassium 4.4, Chloride 108 H, Carbon Dioxide 25.0, Anion Gap 5, BUN 10, Creatinine 0.69, Estim Creat Clear Calc 41.33, Est GFR (MDRD) Af Amer 107, Est GFR (MDRD) Non-Af 88, BUN/Creatinine Ratio 14.5, Glucose 127 H, Calcium 8.4 L 04/10/21 05:26: WBC 8.5, RBC 4.20, Hgb 11.7 L, Hct 35.5 L, MCV 84.5, MCH 27.9, MCHC 33.0, RDW Std Deviation 40.1, RDW Coeff of Didier 13.2, Plt Count 235, MPV 8.4 Microbiology: Microbiology 03/24/21 14:15 Swab (Method) Nasal Screen MRSA/MSSA - Final D/C Instructions Discharge Diet: No restrictions Keep extremity elevated above heart level: Operative Extremity Call your doctor if you observe: Shortness of breath and Chest pain Additional Dressing/Incision Instructions: Ice and elevate one week while not ambulating. Ambulation is encouraged. Weightbearing as tolerated. Use assistive devise for stability. Encourage FULL knee extension and flexion 1 time EVERY time you get up and down and MULTIPLE times per day. No showering 72 hours after surgery. Begin showering postop day #3. Remove the dressing prior to shower and gently wash with warm water and antibacterial soap then pat dry and place abdominal pad (or plain gauze) and EDWARD hose over top. This is to be done daily. Do not submerge for 3 weeks. If not showering daily after the initial 72 hours then you must clean incision and change dressing daily. Do not allow animals near the incision area. Keep clean. Follow anticoagulation recommendations as prescribed. Do not take any NSAIDs while on blood thinner. Do not take any additional narcotic pain medication other than what was prescribed on your surgery day without discussing with physician. Narcotic medication can be addictive. Do not drink alcohol while taking narcotics. Start physical therapy. If you are not currently scheduled for physical therapy or you are unsure of appointment time please call office YISEL to arrange. Call Dr. Mcgee with any concerns. Please Follow Up With: Carlos Mcgee DO When: 2 weeks Meaningful Use Info Meaningful Use Diagnoses (Choose all that apply): None applicable Discharge Plan Admission Admit Date/Time: 04/08/21 12:12 Primary Reason for Your Visit: right total knee arthroplasty Attending Provider: Carlos Mcgee Primary Care Provider: Berta Sofia Discharge Orders/Prescriptions Prescriptions: New oxycodone 5 mg Tablet 5 - 10 mg PO Q4H PRN PRN (Reason: Pain Score 4-10) 5 Days Qty: 50 RF: 0 Eliquis 2.5 mg Tablet 2.5 mg PO BID 15 Days Qty: 30 RF: 0 Continued aspirin [Adult Aspirin Regimen] 81 mg tablet,delayed release (DR/EC) 81 mg PO QDAY RF: 0 hydroxychloroquine [Plaquenil] 200 mg tablet 200 mg PO BID RF: 0 cholecalciferol (vitamin D3) 50 mcg (2,000 unit) capsule 50 mcg PO DAILY RF: 0 ropinirole 1 mg tablet 1 mg PO QHS RF: 0 prednisone 10 mg tablet 10 mg PO DAILY PRN PRN (Reason: Arthritic pain) RF: 0 amlodipine 10 mg tablet 10 mg PO QDAY RF: 0 omeprazole 20 mg capsule,delayed release(DR/EC) 20 mg PO QDAY RF: 0 sertraline 50 mg tablet See Rx Instructions .ROUTE .COMPLEX RF: 0 Discontinued acetaminophen [Tylenol] 325 mg tablet 500 mg PO Q4H PRN (Reason: Pain) RF: 0 Referrals / Follow Up: Berta Sofia MD [Primary Care Provider] - Disposition Discharge Orders: Discharge Patient (Routine); Ordered 04/09/21 Ordered By: Dr. Carlos Mcgee
[2021-04-10 08:02] VITALS: O2SAT 96
[2021-04-10 08:51] VITALS: O2SAT 97
[2021-04-10] MEDS: Cholecalciferol (VIT D3) 25 MCG TABLET (1,000 UNITS) 50 MCG PO (08:56)
[2021-04-10] MEDS: Senna/Docusate Sodium 1 Tablet 2 TABLET PO (08:56)
[2021-04-10] MEDS: Acetaminophen 500 MG Tablet 1000 MG PO (08:56)
[2021-04-10] MEDS: amLODIPine 10 MG Tablet PO (08:56)
[2021-04-10] MEDS: APIXABAN 2.5 MG TABLET PO (08:57)
[2021-04-10] MEDS: Pantoprazole Sodium 20 MG Tablet PO (08:57)
[2021-04-10] MEDS: Sertraline 50 MG Tablet 75 MG PO ×2 (08:59→09:00)
[2021-04-10 09:00] VITALS: BP 154/87; PULSE 76; RESP 18; TEMP 37.1; O2SAT 97
--- NOTE | 2021-04-10 09:28 | CASEMGMT ---
Social Work Note RAFAELA placed a call to Kya with [facility], [facility] is able to accept pt today after 1:00pm. Plan: [facility] today Leslie Fuller EDUCATIONAL TECHNOLOGY COORDINATOR, FINISHER CARD TENDER
[2021-04-10 14:04] VITALS: BP 155/58; PULSE 65; RESP 18; TEMP 36.8; O2SAT 98
--- NOTE | 2021-04-10 14:06 | CASEMGMT ---
Social Work Note SW in to speak with pt. SW updated pt that she will be discharged to today. Pt still appears slightly confused/forgetful. SW informed pt that this worker will call her son Yan to update him. RAFAELA placed a call to pt's son Yan and updated him on discharge to today. Yan states understanding. Leslie Fuller OVERNIGHT CAREGIVER, FENDER MECHANIC APPRENTICE
[2021-04-10 14:29] VITALS: BP 155/58; PULSE 65; RESP 18; TEMP 36.8; O2SAT 98
== END 2021-04-10 15:43 | DRG 470 ==
LOC: SDC 13:31 → MS3 13:31
PROVIDERS: Anesthesiology; Admitting Provider Orthopaedic Surgery; PCP Internal Medicine; Referring Provider Orthopaedic Surgery; Visit Provider Orthopaedic Surgery
PROC: 0SRC0JZ Replacement of Right Knee Joint with Synthetic Substitute, Open Approach (ICD-10-PCS; CPT 27447; principal; 2021-04-08 09:45)
DX: M17.0 Bilateral primary osteoarthritis of knee (principal); M06.9 Rheumatoid arthritis, unspecified; M81.0 Age-related osteoporosis without current pathological fracture; I10 Essential (primary) hypertension; E78.5 Hyperlipidemia, unspecified; K21.9 Gastro-esophageal reflux disease without esophagitis; G25.81 Restless legs syndrome; G47.33 Obstructive sleep apnea (adult) (pediatric); Z79.82 Long term (current) use of aspirin; Z79.01 Long term (current) use of anticoagulants; Z79.899 Other long term (current) drug therapy; Z87.891 Personal history of nicotine dependence
CPT/HCPCS: 36415; 73560; 80048; 82962; 82985; 83735; 85025; 85027; 85610; 85730; 86850; 86900; 86901; 87081; 88305; 88311; 93005; 97110; 97116; 97162; 97166; 97530; 97535; 97802; 99251; C1776; J7120; A4216; G0463; J0702; J3490

== ENCOUNTER 2021-04-10 16:05 | Inpatient (IN) | payer MEDICARE, OTHER, SELFPAY ==
[2021-04-10 16:10] VITALS: BP 144/73; PULSE 68; RESP 18; TEMP 36.6; O2SAT 98; BMI 24.2
[2021-04-10 19:30] VITALS: BP 179/69; PULSE 74; RESP 16; TEMP 36.8; O2SAT 97
--- NOTE | 2021-04-10 19:45 | PCM.HP.STD ---
HPI - General General Date of Admission: 04/10/21 HPI Narrative BRANDI SWEENEY, is a 75 YO F with a PMH of anxiety/depression, chronic back pain, chronic bronchitis, GERD, presbycusis, hyperlipidemia, hypertension, irritable bowel syndrome, urinary incontinence, osteoarthritis, tobacco dependence in remission, obstructive sleep apnea, osteoporosis, periodic limb movement disorder and rheumatoid arthritis who presented to [facility] on 04/08/21 for a robotic assisted R TKR by Dr. Mcgee. She lives alone, has no one to care for her and she has steps at home. She was transferred to the acute inpt rehab unit at [facility] on 04/10/21 for 3 hours of therapy daily to restore function independence at or near her prior level of function. The EMR was reviewed and the post op labs showed a hemoglobin of 11.7, down from 13.5 on 03/24/2021. White blood cell count was within normal limits. Platelets were within normal limits. BMP was unremarkable with the exception of a mildly increased glucose at 127 and this may be due to inflammation. Calcium was low at 8.4. Vitamin D in 2018 was low at 24. Hemoglobin A1c was 5.9 in 2011. She has received a COVID vaccine - 2 shots. She thinks this was in September of 2020. [facility] Medical History Anemia Anxiety Anxiety associated with depression Back pain Bone fracture Cataracts, bilateral Chronic bronchitis CPAP (continuous positive airway pressure) dependence Dyspnea on exertion Former smoker Gastrointestinal problem GERD (gastroesophageal reflux disease) Hearing problem Hemorrhoids History of hyperlipidemia Hyperlipidemia Hypertension IBS (irritable bowel syndrome) Incontinence Knee pain Nicotine dependence in remission Obstructive sleep apnea YOUNG (obstructive sleep apnea) Osteoarthritis Osteoporosis Periodic limb movement disorder (PLMD) Pre-op evaluation Restless legs Rheumatoid arthritis Seasonal allergies Shoulder pain Snoring Wears dentures Home Medications aspirin 81 mg tablet,delayed release 81 mg PO QDAY 07/19/17 [History Last Taken 03/25/21] hydroxychloroquine 200 mg tablet 200 mg PO BID 10/03/19 [History Last Taken 04/06/21] cholecalciferol (vitamin D3) 50 mcg (2,000 unit) capsule 50 mcg PO DAILY 02/13/21 [History Last Taken 04/06/21] ropinirole 1 mg tablet 1 mg PO QHS tab 03/03/21 [History Last Taken 04/06/21] amlodipine 10 mg PO QDAY 03/11/21 [History Last Taken 04/08/21 05:15] omeprazole 20 mg PO QDAY 03/11/21 [History Last Taken 04/08/21 05:15 20 MG] sertraline 75 mg PO DAILY 03/11/21 [History Last Taken 04/06/21] apixaban [Eliquis] 2.5 mg PO BID 04/10/21 [History Last Taken Unknown] oxycodone 5 - 10 mg PO Q4H PRN PRN 04/10/21 [History Last Taken Unknown] Allergy/AdvReac Type Severity Reaction Status Date / Time No Known Allergies Allergy Verified 04/08/21 08:48 Family History Mother , 75 years Cancer Liver cancer and stomach Angina at rest Anxiety History of blood transfusion Diabetes Hypertension High cholesterol Liver disease Father , 60 years Heart disease NM Angina at rest High cholesterol Brother Heart disease Sister Asthma A CHILD Depression Colon cancer Multiple allergies Brother Pancreatic cancer Surgical History History of colon surgery History of colonoscopy history of mastoids in ear History of tubal ligation Hx of LASIK Social History adopted: No housing: house current occupational status: previously employed current occupational exposures/hazards: No pets and animals: Yes pets and animals: cat(s) and dog(s) Smoking Status: Former smoker quit date: 01/24/99 pack-years: 40 Tobacco: How many years used: 40 how long ago did patient quit smokin second hand exposure: No alcohol intake: never substance use type: does not use caffeine: Yes (3/day) additional social history: USES ASPIRIN ROS Constitutional Constitutional: Reports other Details: wears her CPAP religiously and she follows up with Dr. James Mann. ; Denies anorexia, change in weight, chills, daytime sleepiness, difficulty sleeping, frequent falls or headache(s) Eyes Eyes: Denies acute decrease in peripheral vision or blurry vision ENT HEENT: Reports hearing loss and other Details: she has BL hearing aids Cardiovascular Cardiovascular: Denies abdominal pain, chest pain, claudication or edema Respiratory/Chest Respiratory/Chest: Reports dry cough; Denies dyspnea on exertion, hemoptysis or hoarseness Gastrointestinal Gastrointestinal: Reports nausea; Denies abdominal pain, constipation, diarrhea or dry heaves Genitourinary Genitourinary: Denies burning urination or change in urinary stream Musculoskeletal Musculoskeletal: Reports arthralgias and joint stiffness Integumentary Integumentary: Reports erythema; Denies alopecia, jaundice or non-healing lesions Neurologic Neurologic: Reports abnormal hearing and other Details: She tells me that she is sometimes forgetful and so she rights everything down in a book that she has to do. She has noticed that since the surgery she is more forgetful and this is likely due to anesthesia/pain medication/unfamiliar surroundings ; Denies abnormal speech Psychiatric Psychiatric: Denies anxiety, auditory hallucinations, behavioral changes, depression, mood swings or suicidal thoughts Endocrine Endocrinology: Denies change in body appearance Hematologic/Lymphatic Hematologic/Lymphatic: Reports systems reviewed and no addt'l complaints, except as documented Vital Signs Vital Signs Vital Signs: 04/10/21 16:10 Temperature 97.9 F Temperature Source Oral Pulse Rate 68 Respiratory Rate 18 Blood Pressure 144/73 H Blood Pressure Mean 96 Blood Pressure Source Monitor Blood Pressure Position Semi-Fowlers Blood Pressure Location Right Arm Pulse Ox 98 Oxygen Delivery Method Room Air Weight Weight: 145 lb 11.609 oz Body Mass Index (BMI) 24.2 Physical Exam Const alert, oriented x3 and no apparent distress Constitutional Narrative: Making good eye contact, appropriate. Sitting in the recliner at the bedside. She gets easily distracted. General Appearance: cooperative and comfortable HEENT normocephalic HEENT Narrative: Dry mucous membranes Eyes PERRL, EOMs intact bilaterally, conjunctivae normal and no scleral icterus Neck no lymphadenopathy, supple, no JVD and no carotid bruits Resp normal respiratory effort, no use of accessory muscles and clear to auscultation bilaterally Resp Narrative: Not tachypneic and no conversational dyspnea. Cardio regular rate, regular rhythm, S1 normal heart sound, S2 normal heart sound, no murmurs, no rub and no gallops GI normal to inspection, nondistended, normoactive bowel sounds and non-tender GI Narrative: No guarding with palpation. Extremity no clubbing, cyanosis or edema Extremity Narrative: Negative Kentrell's and Eren's signs Skin Skin Narrative: No rashes, no skin breakdown. Neuro oriented x3, CN's II-XII intact bilaterally and no focal motor deficits Motor Exam: strength 5/5 throughout Psych affect normal Psych Narrative: Appropriate, making good eye contact. Able Having trouble with short term memory and gets easily distracted. No flight of ideas. Does not appear anxious or depressed. Conversant and relating well to staff. Assessment & Plan Assessment/Plan (1) Physical debility: (2) Osteoarthritis of right knee: (3) S/P total knee arthroplasty: QUALIFIERS: Laterality: right Qualified Code(s): Z96.651 - Presence of right artificial knee joint (4) Other acute postprocedural pain: (5) YOUNG (obstructive sleep apnea): (6) Periodic limb movement disorder (PLMD): (7) Anemia: (8) Hypertension: (9) Osteoporosis: (10) History of colon surgery: (11) Hyperlipidemia: (12) Rheumatoid arthritis: (13) GERD (gastroesophageal reflux disease): (14) Nicotine dependence in remission: (15) Anxiety associated with depression: (16) Dyspnea on exertion: PLAN: PLAN PT for gait stability OT for ADL's ST for evaluation for forgetfulness/poor short term memory Analgesics as needed - It may be the pain medication that is making her nauseated. Will DC the Oxycodone and start low dose Tramadol Bowel protocol Fall precautions Assess for Anxiety/Depression GI prophylaxis with pantoprazole DVT prophylaxis with Eliquis 2.5 mg twice daily Follow up with Dr. Sofia and Dr. Mcgee following DC from Rehab Plan is to go home at [place] with [facility]. She has 2 sons and they are both fairly local and they can help her post DC until she is safe to be by herself. Charges/Coding Visit Charges Inpatient E&M: 15745 Init Hosp L2
--- NOTE | 2021-04-10 20:06 | REHABEVAL_ITS ---
Admission Information Primary Diagnosis:: Debility due to R TKR in a pt who lives alone and has steps Status Changes from Prescreening?: No changes Identified Actual Problem List:: Skin Intergrity, Pain, ALteration in Cmfrt, Depression, Bladder Incontinence, Mobility Impaired, Self Care Deficit, BP, Hypertension and Alteration-Leisure Activ. Potential Problem List:: DVT, Bleeding, Infection, UTI, Aspiration, Falls, Skin Integrity and Depression Risk of Complications DVT: LMWH and EDWARD Hose Bleeding: Monitor Lab Values, Nursing to Teach Precautions for anti-coagulation therapy., Wound, if applicable, to be assessed every shift. and Stroke patients assessed for lethargy or change in status. Infection: Clinical Staff to Monitor for S/S of infection: and S/S of infection include fever, redness, warmth, etc. Urinary Tract Infection: Monitor for frequency, burning, discomfort, or incontinence. and Nursing will obtain urine sample for urinalysis and C&S when ordered. Aspiration: Clinical staff will monitor for coughing, drooling, congestion., Speech will evaluate swallowing and dsyphasia. and Nursing will monitor patient swallowing during meals. Falls: Patient will be evaluated for Fall Precautions and Patient will be placed on Fall Precautions as indicated per protocol. Skin Breakdown: Nursing will assess skin daily using assessment tool. and Nursing will place on Skin Breakdown Precautions as indicated. Pain: Clinical staff will assess patient's pain level per protocol., Medications will be given, if needed, and the pain level reassessed. and Other methods: Massage, distraction, decrease stimulus, etc. used PRN. Plan of Care Patient requires physician specializing in physical medicine and rehab oversight to provide close medical supervision of rehab issues including: Pain Management, Sleep Problems, Bowel and Bladder, Medical and co-morbidity Management, DVT prophylaxis, Rehabilitation Leadership and Coordination of treatment team Patient needs Physical Therapy: For a minimum of 1 hour and At least 5 out of 7 days Patient needs Physical Therapy to improve:: Mobility, Strengthening, Transfers, Stretching, ROM, Endurance, Stairs, Gait and Balance Patient needs Occupational Therapy: For a minimum of 1 hour and At least 5 out of 7 days Patient needs Occupational Therapy to improve ADL's incl.: Eating, Grooming, Bathing, Dressing, Toileting, Toilet transfers, Community Reintegration, Higher functioning activities, Household tasks, Adaptive Equipment, Splinting and Other activities as determined Patient requires 22/02 Rehabilitation Nursing for: Pain Issues, Identifying and preventing risk factors, Monitoring and reporting current medical conditions, Assisting with ambulation, transfer, and all ADL's, Teaching patients about disease process and medications, Family teaching, Providing safe environment, Bowel and Bladder Issues, Skin integrity and Medication Management Patient needs Epidemiology Investigator/ Case Management for: Discharge Planning, Arranging Home Equipment or Services and Family Interventions Patient needs Dietary and Nutrition Services for: Adequate Nutrition, Nutritional Supplements and Nutritional Education Goals Patient will remain: free from falls and or injury at time of discharge. Patient will perform bed mobility at: MOD I level of assist. Patient will complete transfers from bed to chair at: MOD I level of assist. Patient will ambulate: with LRD and - (300 feet with least restrictive device) Patient will complete upper body dressing at: MOD I level of assist. Patient will complete lower body dressing at: MOD I level of assist. Patient will complete toileting at: MOD I level of assist. Patient will perform bathing at: MOD I level of assist. Patient will complete grooming at: MOD I level of assist. Patient will complete home management skills at: MOD I level of assist. Patient will achieve: 12 stairs (With 2 handrails at standby assist) and - (1 curb step) Patient will have pain level of: of 3 or less Patient's skin will: remain intact Patient will receive: adequate nutrition. Discharge Planning Pt Prognosis for Sig. Practical Improv. w/in Reasonable Time: Good Estimated Length of stay (days): 14 Anticipated D/C Destination: Home with Home Health Was Preadmission Assessment Accurate?: Yes
[2021-04-10] MEDS: APIXABAN 2.5 MG TABLET PO (20:10)
[2021-04-10] MEDS: Pramipexole Di-HCl 0.5 MG Tablet PO (20:11)
[2021-04-10] MEDS: Senna/Docusate Sodium 1 Tablet 2 TABLET PO (20:11)
[2021-04-10] MEDS: Hydroxychloroquine 200 MG Tablet PO (20:11)
[2021-04-11] MEDS: oxyCODONE 5 MG Tablet PO ×2 (06:36→13:46)
[2021-04-11 07:33] VITALS: BP 130/70; PULSE 73; RESP 16; TEMP 36.4; O2SAT 95
[2021-04-11 07:40] VITALS: O2SAT 96
[2021-04-11] MEDS: Sertraline 50 MG Tablet 75 MG PO (10:00)
[2021-04-11] MEDS: Cholecalciferol (VIT D3) 25 MCG TABLET (1,000 UNITS) 50 MCG PO (10:01)
[2021-04-11] MEDS: APIXABAN 2.5 MG TABLET PO ×2 (10:01→20:09)
[2021-04-11] MEDS: Aspirin E.C. 81 MG Tablet PO (10:01)
[2021-04-11] MEDS: Hydroxychloroquine 200 MG Tablet PO ×2 (10:01→20:09)
[2021-04-11] MEDS: amLODIPine 10 MG Tablet PO (10:01)
[2021-04-11] MEDS: Pantoprazole Sodium 20 MG Tablet PO (10:01)
[2021-04-11] MEDS: Acetaminophen 500 MG Tablet 1000 MG PO ×2 (16:58→20:10)
[2021-04-11 19:19] VITALS: BP 145/73; PULSE 69; RESP 18; TEMP 36.7; O2SAT 95
[2021-04-11] MEDS: Senna/Docusate Sodium 1 Tablet 2 TABLET PO (20:09)
[2021-04-11] MEDS: Pramipexole Di-HCl 0.5 MG Tablet PO (20:10)
[2021-04-11] MEDS: traMADol 50 MG Tablet PO (21:58)
[2021-04-11 23:43] VITALS: PULSE 69; RESP 18
[2021-04-12] MEDS: Acetaminophen 500 MG Tablet 1000 MG PO ×3 (04:40→21:15)
[2021-04-12 07:30] VITALS: BP 127/50; PULSE 61; RESP 16; TEMP 36.7; O2SAT 93
[2021-04-12] MEDS: Cholecalciferol (VIT D3) 25 MCG TABLET (1,000 UNITS) 50 MCG PO (09:59)
[2021-04-12] MEDS: amLODIPine 10 MG Tablet PO (10:00)
[2021-04-12] MEDS: Pantoprazole Sodium 20 MG Tablet PO (10:00)
[2021-04-12] MEDS: Sertraline 50 MG Tablet 75 MG PO (10:00)
[2021-04-12] MEDS: APIXABAN 2.5 MG TABLET PO ×2 (10:01→21:13)
[2021-04-12] MEDS: Aspirin E.C. 81 MG Tablet PO (10:01)
[2021-04-12] MEDS: Hydroxychloroquine 200 MG Tablet PO ×2 (10:02→21:14)
[2021-04-12] MEDS: Senna/Docusate Sodium 1 Tablet 2 TABLET PO ×2 (10:04→21:15)
[2021-04-12] MEDS: traMADol 50 MG Tablet PO ×2 (10:04→23:17)
[2021-04-12 14:34] VITALS: O2SAT 93
[2021-04-12 19:04] VITALS: BP 114/58; PULSE 68; RESP 16; TEMP 36.5; O2SAT 94
[2021-04-12] MEDS: Pramipexole Di-HCl 0.5 MG Tablet PO (21:14)
--- NOTE | 2021-04-13 03:59 | NURSING ---
REVIEWED AND AGREE WITH K 9 HANDLER/ DEPUTY'S HANDOFF AND FUNCTIONAL ASSESSMENT CHARTING.
[2021-04-13] MEDS: Acetaminophen 500 MG Tablet 1000 MG PO ×3 (05:01→20:48)
--- NOTE | 2021-04-13 07:29 | NURSING ---
Pt refused Bi-Pap at HS. One on one provided, ineffective. RN aware.
[2021-04-13 07:30] VITALS: BP 131/67; PULSE 70; RESP 18; TEMP 36.6; O2SAT 93
[2021-04-13 09:30] VITALS: O2SAT 94
[2021-04-13] MEDS: Pantoprazole Sodium 20 MG Tablet PO (09:45)
[2021-04-13] MEDS: Cholecalciferol (VIT D3) 25 MCG TABLET (1,000 UNITS) 50 MCG PO (09:45)
[2021-04-13] MEDS: amLODIPine 10 MG Tablet PO (09:45)
[2021-04-13] MEDS: APIXABAN 2.5 MG TABLET PO ×2 (09:45→20:49)
[2021-04-13] MEDS: Sertraline 50 MG Tablet 75 MG PO (09:45)
[2021-04-13] MEDS: Aspirin E.C. 81 MG Tablet PO (09:46)
[2021-04-13] MEDS: Senna/Docusate Sodium 1 Tablet 2 TABLET PO ×2 (09:47→20:48)
[2021-04-13] MEDS: Hydroxychloroquine 200 MG Tablet PO ×2 (09:47→20:49)
--- NOTE | 2021-04-13 16:33 | NURSING ---
up and ambulated in halls with walker and standby assist and tolerated well.
[2021-04-13 18:55] VITALS: BP 124/61; PULSE 79; RESP 16; TEMP 36.8; O2SAT 94
[2021-04-13] MEDS: Pramipexole Di-HCl 0.5 MG Tablet PO (20:49)
[2021-04-14] MEDS: Acetaminophen 500 MG Tablet 1000 MG PO ×3 (05:52→20:04)
[2021-04-14] MEDS: APIXABAN 2.5 MG TABLET PO ×2 (07:49→20:05)
[2021-04-14] MEDS: amLODIPine 10 MG Tablet PO (07:49)
[2021-04-14] MEDS: Cholecalciferol (VIT D3) 25 MCG TABLET (1,000 UNITS) 50 MCG PO (07:49)
[2021-04-14] MEDS: Sertraline 50 MG Tablet 75 MG PO (07:49)
[2021-04-14] MEDS: Hydroxychloroquine 200 MG Tablet PO ×2 (07:49→20:04)
[2021-04-14] MEDS: Aspirin E.C. 81 MG Tablet PO (07:49)
[2021-04-14] MEDS: Pantoprazole Sodium 20 MG Tablet PO (07:49)
[2021-04-14 07:53] VITALS: BP 149/61; PULSE 64; RESP 16; TEMP 36.7; O2SAT 96
--- NOTE | 2021-04-14 08:48 | PCM.PN.BLA ---
Progress Note Eduarda was in on team rounds today. Her son Yan was present in the room. Afebrile VSS-blood pressure is adequately controlled. Maintaining appropriate oxygen saturation on RA Oral intake is good Discussed with nursing - no problems that need addressed Reviewed the PT/OT notes. She will be evaluated by ST today. Medication list reviewed. Rare use of Tramadol. Pain is adequately controlled. She denies CP, SOB at rest, hemoptysis, N/V/abd pain, dysuria. Physical Exam Const alert, oriented x3 and no apparent distress Constitutional Narrative: Sitting in the recliner at the bedside. She is smiling, pleasant and participating in the conversation. Resp normal respiratory effort, normal air movement and clear to auscultation bilaterally Effort and Inspection: able to speak in complete sentences Cardio regular rate, regular rhythm and no gallops Cardio Narrative: no ectopy GI normal to inspection, nondistended, normoactive bowel sounds GI Narrative: no guarding with palpation Extremity no calf tenderness and no pedal edema Extremity Narrative: she has some swelling of the R knee and some resolving ecchymosis. No significant increased warmth to touch. Neuro oriented x3, CN's II-XII intact bilaterally, moves all extremities and no focal motor deficits Assessment & Plan Assessment/Plan (1) Physical debility: (2) S/P total knee arthroplasty: QUALIFIERS: Laterality: right Qualified Code(s): Z96.651 - Presence of right artificial knee joint (3) Periodic limb movement disorder (PLMD): (4) Memory deficit: (5) Hypertension: QUALIFIERS: Hypertension type: primary hypertension Qualified Code(s): I10 - Essential (primary) hypertension PLAN: 1. We discussed the short term memory problems with Eduarda and Yan. Her sons have been noticing some difficulty the past year. Eduarda has developed some compensatory strategies on her own. She has a book she writes her appts down in. ST is in the process of doing a evaluation for cognition and will assist her in establishing other compensatory strategies. We will check a TSH, B12 and PATTIE to r/o treatable causes of dementia. It is likely that she has a mild underlying defect and the problem has been exacerbated by anesthesia, pain medication, change in surroundings, new faces and sleep deprivation because she has not been sleeping well since she was admitted to the hospital. If she does not improve in the next 4-6 weeks after retuning home would recommend she follow up with neurology or better yet a gerontologist specializing in memory disorders. Dr. Schmidt is such a person and I will get the contact info for Yan prior to her DC. 2. Continue therapy. 3. consider a mild med to assist with insomnia. Visit Charges Inpatient E&M: 04509 Subs Hosp L2
--- NOTE | 2021-04-14 12:53 | CASEMGMT ---
Social Work Team meeting held. Patient present as well as patient son. Patient approved 12 days under Medicare with discharge on or by 04/22/2021. Collaborating with team and patient. Patient to discharge on 04/18/2021. Patient to discharge to home alone with patient son's and neighbors to be checking in with patient. Patient reports to already have a walker. Physical and speech therapy are recommending for patient to have continued services through outpatient care. Patient is agreeable to recommendation and request for outpatient speech therapy to be set up through [facility]. Patient also request for van transportation to be set up to [facility] through [facility]. Patient son plans to provide transportation to home for patient at time of discharge. Proposed discharge date: 04/18/2021 Disposition: Home alone with outpatient therapy. Carlos JONES, BANDAR
[2021-04-14 18:59] VITALS: BP 151/73; PULSE 71; RESP 16; TEMP 36.8; O2SAT 96
[2021-04-14 19:45] VITALS: PULSE 71; RESP 16; O2SAT 96
[2021-04-14] MEDS: Pramipexole Di-HCl 0.5 MG Tablet PO (20:04)
[2021-04-15 05:16] VITALS: BP 153/68; PULSE 65; RESP 16; TEMP 36.7; O2SAT 95
[2021-04-15] MEDS: Acetaminophen 500 MG Tablet 1000 MG PO ×3 (05:46→22:22)
[2021-04-15] MEDS: Hydroxychloroquine 200 MG Tablet PO ×2 (07:45→22:23)
[2021-04-15] MEDS: Sertraline 50 MG Tablet 75 MG PO (07:45)
[2021-04-15] MEDS: traMADol 50 MG Tablet PO (07:45)
[2021-04-15] MEDS: Aspirin E.C. 81 MG Tablet PO (07:45)
[2021-04-15] MEDS: Cholecalciferol (VIT D3) 25 MCG TABLET (1,000 UNITS) 50 MCG PO (07:45)
[2021-04-15] MEDS: amLODIPine 10 MG Tablet PO (07:45)
[2021-04-15] MEDS: APIXABAN 2.5 MG TABLET PO ×2 (07:46→22:22)
[2021-04-15] MEDS: Pantoprazole Sodium 20 MG Tablet PO (07:46)
[2021-04-15 07:50] VITALS: BP 153/68; PULSE 65; RESP 16; TEMP 36.7; O2SAT 97
--- NOTE | 2021-04-15 09:18 | CASEMGMT ---
Social Work Order for outpatient physical and speech therapy faxed to [facility]. Proposed discharge date: 04/18/2021 Disposition: Home alone with outpatient therapy. Carlos JONES, ELEANORS
--- NOTE | 2021-04-15 10:03 | PCM.PN.BLA ---
Progress Note Afebrile VSS-the systolic blood pressure is consistently above goal. The heart rate ranges from 61-79. Medication for hypertension includes amlodipine 10 mg daily. Maintaining appropriate oxygen saturation on RA Oral intake is good Discussed with nursing - no problems that need addressed Reviewed the PT/OT/ST notes Medication list reviewed. Pain is adequately controlled. Denies CP/SOB/hemoptysis. No lightheadedness. Has trouble sleeping at night for many years. Tried Melatonin in the past and it did not help Physical Exam Const alert and oriented x3 Constitutional Narrative: looking good. Smiling. Pleasant. Talkative. No apparent distress. General Appearance: cooperative Resp normal respiratory effort Cardio regular rate and regular rhythm Skin General Skin Exam: no breakdown Rashes: no rashes Wound Narrative: The incision is intact and there is no erythema, DC or increased warmth to touch. Assessment & Plan Assessment/Plan (1) Physical debility: (2) S/P total knee arthroplasty: QUALIFIERS: Laterality: right Qualified Code(s): Z96.651 - Presence of right artificial knee joint (3) Bilateral primary osteoarthritis of knee: (4) Periodic limb movement disorder (PLMD): (5) Insomnia: (6) Hypertension: QUALIFIERS: Hypertension type: primary hypertension Qualified Code(s): I10 - Essential (primary) hypertension PLAN: 1. Try a small dose of Lyrica 2 hours prior to bedtime......it may be the PLMD that is keeping her from sleeping. she has been the the Mirapex for a long time and she may be experiencing augmentation. If the Lyrica helps would consider tapering the Mirapex off over a few weeks. 2. Add Lisinopril 2.5 mg to the current antihypertensive regimen. Goal is to keep the systolic less than 140 consistently. 3. Continue therapy 4. Planning on DC home with OP therapy at [facility]. Someone from the family will stay with her at least over the weekend to make sure she is going to be OK by herself Visit Charges Inpatient E&M: 26760 Subs Hosp L2
[2021-04-15 11:50] LABS: Vitamin B12 448 pg/mL (211-911)
[2021-04-15 11:58] LABS: Thyroid Stim Hormone (TSH) 1.64 uIU/mL (0.358-3.74)
[2021-04-15] MEDS: Lisinopril 2.5 MG Tablet PO (12:06)
[2021-04-15 20:00] VITALS: BP 117/59; PULSE 67; RESP 17; TEMP 36.6; O2SAT 94
[2021-04-15] MEDS: Pregabalin 25 MG Capsule PO (22:22)
[2021-04-15] MEDS: Pramipexole Di-HCl 0.5 MG Tablet PO (22:22)
[2021-04-15] MEDS: Senna/Docusate Sodium 1 Tablet 2 TABLET PO (22:22)
[2021-04-15 22:35] VITALS: PULSE 67; RESP 17; O2SAT 94
[2021-04-16] MEDS: Acetaminophen 500 MG Tablet 1000 MG PO ×3 (05:47→20:47)
[2021-04-16 08:00] VITALS: PULSE 66; RESP 16
[2021-04-16] MEDS: Pantoprazole Sodium 20 MG Tablet PO (08:00)
[2021-04-16] MEDS: APIXABAN 2.5 MG TABLET PO ×2 (08:00→20:47)
[2021-04-16] MEDS: amLODIPine 10 MG Tablet PO (08:00)
[2021-04-16] MEDS: Cholecalciferol (VIT D3) 25 MCG TABLET (1,000 UNITS) 50 MCG PO (08:00)
[2021-04-16] MEDS: Aspirin E.C. 81 MG Tablet PO (08:00)
[2021-04-16] MEDS: Hydroxychloroquine 200 MG Tablet PO ×2 (08:01→20:47)
[2021-04-16] MEDS: Senna/Docusate Sodium 1 Tablet 2 TABLET PO (08:01)
[2021-04-16] MEDS: Sertraline 50 MG Tablet 75 MG PO (08:01)
[2021-04-16] MEDS: Lisinopril 2.5 MG Tablet PO (08:01)
[2021-04-16 08:42] VITALS: BP 136/80; PULSE 66; RESP 16; TEMP 36.5; O2SAT 93
--- NOTE | 2021-04-16 09:54 | CASEMGMT ---
Social Work Received outpatient physical and speech therapy appointments for [facility]. PT: 04/23/2021 @ 4pm with van to pick up driver at 3:30. FLOOR SCRUBBER: 04/25/2021 @ 10am with van pick up driver at 9:30am. Appointment reminder provided to patient. Telephone call to patient sonYan to attempt to communicate appointment time/date. No answer. No voicemail set up. Proposed discharge date: 04/18/2021 Disposition: Home alone with outpatient therapy. Carlos JONES, BANDAR
[2021-04-16] MEDS: traMADol 50 MG Tablet PO ×2 (12:02→20:53)
[2021-04-16 14:44] LABS: ANTINUCLEAR ANTIBODIES DIRECT Negative (Negative)
--- NOTE | 2021-04-16 16:43 | CHAPLAIN ---
Type of Pastoral Visit _x__ Initial Visit ___ Follow-up Visit ___ On-call Visit ___ General Patient Visit ___ Spiritual Assessment ___ Family Conference ___ Bereavement ___ Rapid Response ___ Code Blue ___ Other (describe below) Pastoral Care Referral From _x__ Patient ___ Family ___ Nurse ___ Physician ___ Travel Guide ___ Steelscope Operator ___ Other (describe below) Sacrament/Intervention _x__ Active listening ___ Anointing ___ Spiritism ___ Bereavement ___ Communion _x__ Mallory exploration ___ _x__ Life review _x__ Prayer ___ Reconciliation ___ Sacrament of Sick ___ Supportive presence ___ Wedding ___ Other (describe below) Pastoral Comments life review and spiritual perspectives on 'getting through' the hard times
[2021-04-16 20:14] VITALS: BP 136/67; PULSE 69; RESP 18; TEMP 36.6; O2SAT 97
[2021-04-16] MEDS: Pregabalin 25 MG Capsule PO (20:47)
[2021-04-16] MEDS: Pramipexole Di-HCl 0.5 MG Tablet PO (20:47)
[2021-04-17] MEDS: Acetaminophen 500 MG Tablet 1000 MG PO ×3 (05:01→21:22)
[2021-04-17] MEDS: traMADol 50 MG Tablet PO ×2 (06:52→14:03)
[2021-04-17] MEDS: APIXABAN 2.5 MG TABLET PO ×2 (07:59→21:23)
[2021-04-17] MEDS: Aspirin E.C. 81 MG Tablet PO (07:59)
[2021-04-17] MEDS: Pantoprazole Sodium 20 MG Tablet PO (08:00)
[2021-04-17] MEDS: Sertraline 50 MG Tablet 75 MG PO (08:00)
[2021-04-17] MEDS: Lisinopril 2.5 MG Tablet PO ×2 (08:00→21:23)
[2021-04-17] MEDS: amLODIPine 10 MG Tablet PO (08:00)
[2021-04-17] MEDS: Cholecalciferol (VIT D3) 25 MCG TABLET (1,000 UNITS) 50 MCG PO (08:00)
[2021-04-17] MEDS: Hydroxychloroquine 200 MG Tablet PO ×2 (08:00→21:22)
[2021-04-17 08:05] VITALS: BP 151/73; PULSE 67; RESP 16; TEMP 36.6; O2SAT 96
--- NOTE | 2021-04-17 09:20 | PCM.PN.BLA ---
Progress Note Afebrile VSS - The sys BP tends to be elevated in the low 150's in the AM. Antihypertensives include amlodipine 10 mg p.o. daily in the a.m. and lisinopril 2.5 mg daily also in the AM. Maintaining appropriate oxygen saturation on RA Oral intake is good Discussed with nursing - no problems that need addressed Reviewed the PT/OT notes Medication list reviewed. B12 and TSH are within normal limits. The PATTIE is negative. Certainly getting good sleep will help with memory. The Trazodone is working well and she has no hangover in the AM. She has slept well for the past 2 nights.....better than she has slept in years. She would like a RX for Trazodone at discharge. She denies chest pain, calf pain, shortness of breath, lightheadedness, dysuria and cough. Physical Exam Const alert, oriented x3 and no apparent distress General Appearance: cooperative, comfortable, well kempt and well developed Resp normal respiratory effort, no use of accessory muscles and clear to auscultation bilaterally Cardio regular rate, regular rhythm and no gallops Cardio Narrative: No ectopy GI normal to inspection, nondistended, normoactive bowel sounds and soft to palpation Extremity no calf tenderness and no pedal edema Extremity Narrative: She has edema of the knee and also resolving ecchymosis. There is no purulent DC and there is no azeb- incisional erythema Psych affect normal Assessment & Plan Assessment/Plan (1) Hypertension: QUALIFIERS: Hypertension type: primary hypertension Qualified Code(s): I10 - Essential (primary) hypertension PLAN: 1. I think we are seeing end of dose failure causing the higher BP's in the AM' Will give the Amlodipine in the AM and the Lisinopril at [facility]. 2. Plan DC home tomorrow. 3. Continue the Trazodone at DC at discharge Visit Charges Inpatient E&M: 76718 Subs Hosp L1
--- NOTE | 2021-04-17 14:20 | PCM.DC ---
Discharge Instructions Diet Discharge Diet: No restrictions Activity Discharge Activity: May Not Drive and - (Use your cane when you are walking outside of your house.) Ice area for (Minutes): 15 Weight Bearing Status: Full weight bearing Keep extremity elevated above heart level: Right Leg Additional Activity Instructions:: Please do the exercises given to you by the therapists at least once a day. Dressing / Incision Call your doctor if your incision/area has: Sudden Increased Bleeding, Increased Pain/ Swelling, Increased Redness and Foul Smelling Discharge Call your doctor if you observe: Fever of 101 or Higher, Shortness of breath, Fainting spells, Chest pain, Increased palpitations (irregular heartbeat), Calf discomfort and Uncontrolled pain Suture Line Care: Avoid Pulling/Pushing and Avoid Pinching/Bending Cleanse incision/area with: Soap & Water Follow Up Care Please Follow Up With: Angus Mackenzie MICROWAVE ENGINEER, MICROWAVE ENGINEER-C Test Results: Test results from this visit will be discussed in further detail at your follow-up appointment, if applicable. Pending Tests Upon Discharge: none Discharge Plan Admission Admit Date/Time: 04/10/21 16:05 Primary Reason for Your Visit: Debility due to R TKA Attending Provider: Carmen Donato Primary Care Provider: Berta Sofia Instructions Patient Instructions: Knee Replacement Recovery at Home Additional Instructions / Restrictions: 1. You have done very well in therapy. You have been a pleasure to work with worked hard. Remember to use a cane or a walker when ambulating outside of your home to help with balance and stability. 2. You are having some issues with memory. Many things can be contributing to this including but, not limited to pain medications, anesthesia, being away from your normal environment, new faces, different times to wake up in the AM. I think your memory has also been affecting by insomnia/sleep deprivation. You have already developed some strategies to help you remember things and The speech therapists have helped you develop a few more memory aids. In 6-8 weeks when you are back to your baseline if you are still having issues with memory I recommend you visit a gerontologist who specializes in memory problems for an assessment. We all have trouble with memory sometimes and it is part of aging to some degreee BUT, some people go on to develop dementia. Dementia is treatable IF IT IS CAUGHT EARLY. There are medications available to help slow down the progress of dementia if you are diagnosed with this. There are a few other things that cause memory loss that are treatable and these include B12 deficiency, thyroid disease and Lupus. we checked for these things and all the tests were negative. It is just as important to exercise your brain as it is to exercise your body. Do crossword puzzles, read the paper or books or magazines, build puzzles, play scrabble and write notes or cards to friends or family. these activities all help to stimulate your brain.......use it or lose it! 3. I think you will do fine at home but, I am glad someone will be staying with you over the weekend to make sure you will be safe by yourself. 4. You have been diagnosed with restless legs and you are taking a medication called ropinirole for this. I think one of the reasons that you have not been sleeping well is your legs are jumpy at night and it keeps you awake. Sometimes if you have been on ropinirole for some time it will make the restless legs worse. This is called augmentation. When this happens we generally prescribe another medication which does not cause augmentation. I chose to start you on Lyrica (which is also called Pregabalin). You will take this medication 2 hours prior to bedtime. You may be able to be weaned off the ropinirole in the future and remain on Lyrica only. 5. The Gerontologist I have been referring patients to for memory problems is Dr. Renée Vieyra. She does a very thorough evaluation and I have been impressed with her work both and she provides education not only to the patient but, also to the family about how to make things easier and safer. 6. It was a pleasure to meet you Eduarda. If you or your sons have any questions after you leave the rehab unit please do not hesitate to call me. My office number is [phone] and my cell phone number is [phone]. Take care Eduarda and be well. Discharge Orders/Prescriptions Prescriptions: New acetaminophen 500 mg Tablet 1,000 mg PO Q6H PRN (Reason: fever or pain) Qty: 0 RF: 0 tramadol 50 mg Tablet 50 mg PO Q6H PRN PRN (Reason: pain 4-10) 7 Days Qty: 20 RF: 0 lisinopril 2.5 mg Tablet 2.5 mg PO HS Qty: 30 RF: 0 pregabalin 25 mg Capsule 25 mg PO 2000 Qty: 30 RF: 0 Continued aspirin [Adult Aspirin Regimen] 81 mg tablet,delayed release (DR/EC) 81 mg PO QDAY RF: 0 hydroxychloroquine [Plaquenil] 200 mg tablet 200 mg PO BID RF: 0 cholecalciferol (vitamin D3) 50 mcg (2,000 unit) capsule 50 mcg PO DAILY RF: 0 ropinirole 1 mg tablet 1 mg PO QHS RF: 0 amlodipine 10 mg tablet 10 mg PO QDAY RF: 0 omeprazole 20 mg capsule,delayed release(DR/EC) 20 mg PO QDAY RF: 0 sertraline 50 mg tablet 75 mg PO DAILY RF: 0 Eliquis 2.5 mg tablet 2.5 mg PO BID Qty: 42 RF: 0 Discontinued oxycodone 5 mg tablet 5 - 10 mg PO Q4H PRN PRN (Reason: pain) RF: 0 Referrals / Follow Up: Berta Sofia MD [Primary Care Provider] - Disposition Disposition (needs filled in before D/C Order can be placed): Home, Self Care
--- NOTE | 2021-04-17 15:11 | DS.PCM_ITS ---
Providers Date of Admission: 04/10/21 Date of Discharge: 04/18/21 Primary Care Physician: Dr. Berta Sofia MD Attending Physician: Dr. Carlos Mcgee Reason For Visit: R TOTAL KNEE REPLACEMENT Diagnosis Discharge Diagnosis (1) Physical debility: Status: Acute Code(s): R53.81 - Other malaise (2) S/P total knee arthroplasty: Code(s): Z96.659 - Presence of unspecified artificial knee joint Qualifiers: Laterality: right Qualified Code(s): Z96.651 - Presence of right artificial knee joint (3) Bilateral primary osteoarthritis of knee: Code(s): M17.0 - Bilateral primary osteoarthritis of knee (4) Anemia: Status: Acute Code(s): D64.9 - Anemia, unspecified (5) Memory deficit: Status: Chronic Code(s): R41.3 - Other amnesia (6) Insomnia: Status: Chronic Code(s): G47.00 - Insomnia, unspecified (7) Periodic limb movement disorder (PLMD): Status: Chronic Code(s): G47.61 - Periodic limb movement disorder (8) Hypertension: Code(s): I10 - Essential (primary) hypertension Qualifiers: Hypertension type: primary hypertension Qualified Code(s): I10 - Essential (primary) hypertension (9) Osteoporosis: Code(s): M81.0 - Age-related osteoporosis without current pathological fracture (10) YOUNG (obstructive sleep apnea): Code(s): G47.33 - Obstructive sleep apnea (adult) (pediatric) (11) Rheumatoid arthritis: Code(s): M06.9 - Rheumatoid arthritis, unspecified (12) Hyperlipidemia: Code(s): E78.5 - Hyperlipidemia, unspecified (13) GERD (gastroesophageal reflux disease): Code(s): K21.9 - Gastro-esophageal reflux disease without esophagitis (14) Anxiety associated with depression: Status: Chronic Code(s): F41.8 - Other specified anxiety disorders Plan: Discharge home on 04/18/2021 with outpatient physical therapy at [facility]. She will be transported by the hospital van which has been arranged. Medications at Discharge Home Medications aspirin 81 mg tablet,delayed release 81 mg PO QDAY 07/19/17 hydroxychloroquine 200 mg tablet 200 mg PO BID 10/03/19 cholecalciferol (vitamin D3) 50 mcg (2,000 unit) capsule 50 mcg PO DAILY 02/13/21 ropinirole 1 mg tablet 1 mg PO QHS tab 03/03/21 amlodipine 10 mg PO QDAY 03/11/21 omeprazole 20 mg PO QDAY 03/11/21 sertraline 75 mg PO DAILY 03/11/21 Eliquis 2.5 mg PO BID #42 tab 04/17/21 acetaminophen 1,000 mg PO Q6H PRN #0 tab 04/17/21 lisinopril 2.5 mg PO HS #30 tab 04/17/21 pregabalin 25 mg PO 2000 #30 cap 04/17/21 tramadol 50 mg PO Q6H PRN PRN 7 Days #20 tab 04/17/21 cephalexin [Keflex] 750 mg PO Q8H #15 cap 04/18/21 Hospital Course Operations total knee replacement (By Dr. Mcgee on 04/08/2021 ) Procedures None Summary of Care Provided Minutes Spent on Discharge: 45 Hospital Course: BRANDI SWEENEY, is a 75 YO F with a PMH of anxiety/depression, chronic back pain, chronic bronchitis, GERD, presbycusis, hyperlipidemia, insomnia, hypertension, irritable bowel syndrome, urinary incontinence, osteoarthritis, tobacco dependence in remission, obstructive sleep apnea, osteoporosis, periodic limb movement disorder and rheumatoid arthritis who presented to [facility] on 04/08/21 for a robotic assisted R TKR by Dr. Mcgee. She lives alone, has no one to care for her and she has steps at home. She was transferred to the acute inpt rehab unit at [facility] on 04/10/21 for 3 hours of therapy daily to restore function/ independence at or near her prior level of function. The EMR was reviewed and the post op labs showed a hemoglobin of 11.7, down from 13.5 on 03/24/2021. White blood cell count was within normal limits. Platelets were within normal limits. BMP was unremarkable with the exception of a mildly increased glucose at 127 and this may be due to inflammation. Calcium was low at 8.4. Vitamin D in 2018 was low at 24. Hemoglobin A1c was 5.9 in 2012. Eduarda was having a difficult time remembering instructions given to her by the therapists and the nurses. Upon checking with her son Yan we found out that Eduarda has been having problems with her memory. She had been missing appts and she purchased a personal financial planner to help her remember her appointments and commitments. ST was consulted for an evaluation and to provide her with a memory book that she will keep in 1 place in her house so she will know where to find it and so that she can review it daily. I checked a B12, TSH and PATTIE to rule out treatable causes of dementia and they were all within normal limits. She has not had a CT scan of her brain at this institution and I recommend she obtain one as an outpatient. She has no gait abnormality or urinary incontinence other than urge incontinence so I do not suspect NPH. I recommended to Eduarda and her son join that in 6-8 weeks when she is back to her baseline she see a gerontologist specializing in dementia. I recommended Dr. Afia Vieyra MD. She is someone I have sent patients to in the past and I have been impressed with her thoroughness and the follow through with patient and family. Eduarda told me that she has not been sleeping well for quite some time now. She has a periodic limb movement disorder and is prescribed ropinirole. I suspect the reason she doesn't sleep well is related to restless legs/PMLD. Ropinirole can cause augmentation and lead to worsening symptoms. She was given 25 mg of Lyrica 2 hours prior to her bedtime and she was sleeping well prior to discharge. Would consider tapering ropinirole off in the coming months to see if she can be maintained on Lyrica alone. Eduarda did exceptionally well in therapy. Prior to discharge she was able to do 13 sit to stands in 30 seconds. She completed the tug test in 16.09 seconds with a straight cane at standby assist. She has ambulated up to 1000 feet with a straight cane independently on various surfaces. She is able to go up/down a curb step with a straight cane at standby assist. She is able to a send/descend 13 steps at standby assist with bilateral handrails. She does require some cueing because she struggles with sequence at times. She is independent with all ADLs. St did not notice any significant improvement after she had slept well for a few nights. I suspect she has early dementia and now would be the time to start medication to get the best pharmacologic benefit. Eduarda was discharged home on 04/18/21 and she will be getting OP physical therapy at [facility]. Her first appointment is at 4 PM on 04/23/2021. The hospital van will pick her up at 3:30. A family member will stay with her over the weekend to make sure that she is going to be safe at home alone. She was transitioned to Tramadol while in the rehab unit because the Oxycodone was causing her nausea/stomach upset. She tolerates the Tramadol well with no adverse SE's. She will follow up with Dr. Mcgee and with Angus Mackenzie NP post DC. On PE at the time of discharge I noticed some new patchy redness at the inferior pole of the incision and in the lateral knee. There is mild increased warmth in the R knee when compared to the left but, this is to be expected with inflammation due to the recent surgery. There is no purulent DC and the clement are intact. She was given a Prescription for Keflex 750 mg TID for 5 days. she was instructed to look at the incision every day and if there is increasing redness, increasing pain or any purulent DC she should contact Dr. Mcgee or Dr. Sofia immediately or come to the ED. Physical Exam Const alert, oriented x3 and no apparent distress Constitutional Narrative: looking good. Smiling. Pleasant. Talkative. No apparent distress. General Appearance: cooperative and comfortable HEENT normocephalic Eyes PERRL, EOMs intact bilaterally, conjunctivae normal and no scleral icterus Resp normal respiratory effort, normal air movement, no use of accessory muscles and clear to auscultation bilaterally Resp Narrative: Not tachypneic and no conversational dyspnea. Effort and Inspection: able to speak in complete sentences Cardio regular rate, regular rhythm, S1 normal heart sound, S2 normal heart sound, no murmurs, no rub and no gallops Cardio Narrative: no ectopy GI normal to inspection, nondistended, normoactive bowel sounds and non-tender GI Narrative: no guarding with palpation Extremity no calf tenderness Extremity Narrative: She has some swelling of the R knee and some resolving ecchymosis. There is a small area at the inferior pole of the incision that is reddened. There is also some reddish discoloration of the lateral knee and there is a mild increase in the warmth to touch. There is no purulent DC. The clement are intact and will be removed at her appt with Dr. Mcgee on the . Skin Skin Narrative: No rashes, no skin breakdown. General Skin Exam: no breakdown Rashes: no rashes Wound Narrative: The incision is intact and there is no erythema, DC or increased warmth to touch. Neuro oriented x3, CN's II-XII intact bilaterally, moves all extremities and no focal motor deficits Motor Exam: strength 5/5 throughout Psych affect normal Psych Narrative: Appropriate, making good eye contact. Able Having trouble with short term memory and gets easily distracted. No flight of ideas. Does not appear anxious or depressed. Conversant and relating well to staff. Weight / BMI Weight Weight: 152 lb 5.431 oz Body Mass Index (BMI) 24.2 D/C Instructions Discharge Diet: No restrictions Ice area for (Minutes): 15 Weight Bearing Status: Full weight bearing Keep extremity elevated above heart level: Right Leg Additional Activity Instructions: Please do the exercises given to you by the therapists at least once a day. Call your doctor if your incision/area has: Sudden Increased Bleeding, Increased Pain/ Swelling, Increased Redness and Foul Smelling Discharge Call your doctor if you observe: Fever of 101 or Higher, Shortness of breath, Fainting spells, Chest pain, Increased palpitations (irregular heartbeat), Calf discomfort and Uncontrolled pain Suture Line Care: Avoid Pulling/Pushing and Avoid Pinching/Bending Cleanse incision/area with: Soap & Water Pending Tests Upon Discharge: none Please Follow Up With: Angus Mackenzie MACHINE TOOL MECHANIC, MACHINE TOOL MECHANIC-C Meaningful Use Info Meaningful Use Diagnoses (Choose all that apply): None applicable Discharge Plan Admission Admit Date/Time: 04/10/21 16:05 Primary Reason for Your Visit: Debility due to R TKA Attending Provider: Carmen Donato Primary Care Provider: Berta Sofia Instructions Patient Instructions: Knee Replacement Recovery at Home Additional Instructions / Restrictions: 1. You have done very well in therapy. You have been a pleasure to work with worked hard. Remember to use a cane or a walker when ambulating outside of your home to help with balance and stability. 2. You are having some issues with memory. Many things can be contributing to this including but, not limited to pain medications, anesthesia, being away from your normal environment, new faces, different times to wake up in the AM. I think your memory has also been affecting by insomnia/sleep deprivation. You have already developed some strategies to help you remember things and The speech therapists have helped you develop a few more memory aids. In 6-8 weeks when you are back to your baseline if you are still having issues with memory I recommend you visit a gerontologist who specializes in memory problems for an assessment. We all have trouble with memory sometimes and it is part of aging to some degreee BUT, some people go on to develop dementia. Dementia is treatable IF IT IS CAUGHT EARLY. There are medications available to help slow down the progress of dementia if you are diagnosed with this. There are a few other things that cause memory loss that are treatable and these include B12 deficiency, thyroid disease and Lupus. we checked for these things and all the tests were negative. It is just as important to exercise your brain as it is to exercise your body. Do crossword puzzles, read the paper or books or magazines, build puzzles, play scrabble and write notes or cards to friends or family. these activities all help to stimulate your brain.......use it or lose it! 3. I think you will do fine at home but, I am glad someone will be staying with you over the weekend to make sure you will be safe by yourself. 4. You have been diagnosed with restless legs and you are taking a medication called ropinirole for this. I think one of the reasons that you have not been sleeping well is your legs are jumpy at night and it keeps you awake. Sometimes if you have been on ropinirole for some time it will make the restless legs worse. This is called augmentation. When this happens we generally prescribe another medication which does not cause augmentation. I chose to start you on Lyrica (which is also called Pregabalin). You will take this medication 2 hours prior to bedtime. You may be able to be weaned off the ropinirole in the future and remain on Lyrica only. 5. The Gerontologist I have been referring patients to for memory problems is Dr. Renée Vieyra. She does a very thorough evaluation and I have been impressed with her work both and she provides education not only to the patient but, also to the family about how to make things easier and safer. 6. It was a pleasure to meet you Eduarda. If you or your sons have any questions after you leave the rehab unit please do not hesitate to call me. My office number is [phone] and my cell phone number is [phone]. Take care Eduarda and be well. Discharge Orders/Prescriptions Prescriptions: New acetaminophen 500 mg Tablet 1,000 mg PO Q6H PRN (Reason: fever or pain) Qty: 0 RF: 0 tramadol 50 mg Tablet 50 mg PO Q6H PRN PRN (Reason: pain 4-10) 7 Days Qty: 20 RF: 0 lisinopril 2.5 mg Tablet 2.5 mg PO HS Qty: 30 RF: 0 pregabalin 25 mg Capsule 25 mg PO 2000 Qty: 30 RF: 0 cephalexin [Keflex] 750 mg capsule 750 mg PO Q8H Qty: 15 RF: 0 Continued aspirin [Adult Aspirin Regimen] 81 mg tablet,delayed release (DR/EC) 81 mg PO QDAY RF: 0 hydroxychloroquine [Plaquenil] 200 mg tablet 200 mg PO BID RF: 0 cholecalciferol (vitamin D3) 50 mcg (2,000 unit) capsule 50 mcg PO DAILY RF: 0 ropinirole 1 mg tablet 1 mg PO QHS RF: 0 amlodipine 10 mg tablet 10 mg PO QDAY RF: 0 omeprazole 20 mg capsule,delayed release(DR/EC) 20 mg PO QDAY RF: 0 sertraline 50 mg tablet 75 mg PO DAILY RF: 0 Eliquis 2.5 mg tablet 2.5 mg PO BID Qty: 42 RF: 0 Discontinued oxycodone 5 mg tablet 5 - 10 mg PO Q4H PRN PRN (Reason: pain) RF: 0 Referrals / Follow Up: Berta Sofia MD [Primary Care Provider] - Disposition Disposition (needs filled in before D/C Order can be placed): Home, Self Care Charges/Coding Visit Charges Inpatient E&M: 52852 Disch Hosp
[2021-04-17 19:13] VITALS: BP 138/49; PULSE 74; RESP 16; TEMP 36.8; O2SAT 95
[2021-04-17] MEDS: Pregabalin 25 MG Capsule PO (21:23)
[2021-04-17] MEDS: Pramipexole Di-HCl 0.5 MG Tablet PO (21:23)
[2021-04-18] MEDS: traMADol 50 MG Tablet PO (04:04)
[2021-04-18] MEDS: Acetaminophen 500 MG Tablet 1000 MG PO (07:04)
[2021-04-18 08:16] VITALS: BP 145/72; PULSE 73; RESP 18; TEMP 36.7; O2SAT 95
[2021-04-18] MEDS: Aspirin E.C. 81 MG Tablet PO (09:33)
[2021-04-18] MEDS: Hydroxychloroquine 200 MG Tablet PO (09:33)
[2021-04-18] MEDS: Sertraline 50 MG Tablet 75 MG PO (09:34)
[2021-04-18] MEDS: amLODIPine 10 MG Tablet PO (09:34)
[2021-04-18] MEDS: Cholecalciferol (VIT D3) 25 MCG TABLET (1,000 UNITS) 50 MCG PO (09:34)
[2021-04-18] MEDS: APIXABAN 2.5 MG TABLET PO (09:34)
[2021-04-18] MEDS: Pantoprazole Sodium 20 MG Tablet PO (09:39)
[2021-04-18 14:50] VITALS: BP 145/72; PULSE 73; RESP 18; TEMP 36.7; O2SAT 95
--- NOTE | 2021-04-18 14:55 | NURSING ---
Son and patient aware of DC orders and new order for ATB.
== END 2021-04-18 14:55 | disposition home or self-care (01) | DRG 560 ==
PROVIDERS: Admitting Provider Internal Medicine; PCP Internal Medicine; Visit Provider Internal Medicine
DX: Z47.1 Aftercare following joint replacement surgery (principal); L03.90 Cellulitis, unspecified; Z96.651 Presence of right artificial knee joint; E78.5 Hyperlipidemia, unspecified; M06.9 Rheumatoid arthritis, unspecified; G47.33 Obstructive sleep apnea (adult) (pediatric); G89.29 Other chronic pain; M19.90 Unspecified osteoarthritis, unspecified site; G47.61 Periodic limb movement disorder; F41.8 Other specified anxiety disorders; M17.0 Bilateral primary osteoarthritis of knee; N39.41 Urge incontinence; K21.9 Gastro-esophageal reflux disease without esophagitis; I10 Essential (primary) hypertension; Z87.891 Personal history of nicotine dependence; Z79.899 Other long term (current) drug therapy; Z79.01 Long term (current) use of anticoagulants; Z79.82 Long term (current) use of aspirin
CPT/HCPCS: 82607; 84443; 86038; 86225; 86235; 92507; 92523; 97110; 97116; 97162; 97166; 97530; 97535; 97802; 99251; G0463

== ENCOUNTER 2021-06-02 14:30 | Outpatient (RCR) | payer MEDICARE, OTHER, SELFPAY ==
--- NOTE | 2021-04-23 16:59 | HP.PTEVAL_ITS ---
Patient's Visit Information BRANDI SWEENEY is a 75 year old F referred to Physical Therapy by Dr. Berta Sofia MD with a diagnosis of R TKR s/p apr 08 and memory deficit. Date of Evaluation: 04/23/21 Physical Therapist: JAVIER Coles - Visit Plan Frequency: 2x /Week Duration: 6 Weeks Plan: +++Order does state memory ISSUES+++ so written HEP is probably best. 2X/ week for 4-6 weeks for R knee AROM, PROM, stretching, strengthening, gait training, functional activities with HEP and ice as needed. HEP: SLR, S/L hip abd, heel slides, QS - Subjective On Apr 08 pt had a Right TKR. Pt came home from hospital last Wednesday and she lives alone. She drives but is not allowed to drive yet. She will need the van to pick her up. She has stairs at her home and uses the steps to leave the house....and she has a riling and spindles on the other side to get out of the house. She is doing those steps ok. She is not sleeping great. She complains of R knee stiffness but it is getting better. She was in pain but now just on Tylenol. Her son made her do some exercises when she got home. She reports that she struggles with getting the compression socks on but got them on today after she got the stiches out. She is walking with a cane and she was not walking with a cane before surgery. - Pain R knee pain Pain Intensity (Out of 10): 1 - Objective Gait: walks with smaller redd and slightly decreased stance time on the R LE with a straight cane. R knee ext -1 degree from full extension, R knee flexion 93 degrees. Sit to stand ok with use of arms on first attempt. Pt is able to do a SLR. Pt struggled with following directions on resisting motion with MMT so true MMT was not able to obtain. Pt is able to do 3/4 normal ROM. TUG9.29. girth R patella 41.5. Girth 6 supra patella 49.2. Stairs: up and down recip with 2 hand rails with decreased motion when descending with the L foot first due to pain and decreased ROM. R knee flexion MMT 3+. R knee ext MMT 3- - Balance/Special Test Scores Lower Extremity Functional Score: 53 WOMAC Total Score: 44 WOMAC Percentatge: 50.0000 - Goals Goal 1:: I HEP Goal Time Frame: 4-6 Weeks Goal 2:: Increase R knee AROM 0-120 degrees R knee flexion Goal Time Frame: 4-6 Weeks Goal 3:: Walk with a normal gait pattern without AD or antalgic gait. Goal Time Frame: 4-6 Weeks Goal 4:: Be able to go up and down the stairs recip without antalgic gait Goal Time Frame: 4-6 Weeks - Rehabilitation Potential Rehabilitation Potential: Good - Anticipated Interventions Patient/Client Instruction: Educate patient on: Condition, Plan of Care For the Purpose of:: To decrease pain, To increase ROM, To improve nutrient delivery to tissue, To improve muscle performance and motor function, To improve ability to perform ADL's, To increase tolerance to activity/condition/position, To improve performance and independence with ADL's, To decrease level of supervision to perform tasks, To improve ability of physical actions for home/community/work/leisure, To improve gait and locomotor functions, To improve health of tissue, To decrease soft tissue restriction, To increase flexibi lity/ROM, To improve safety with gait Therapeutic Exercise to Include: Strength training, Flexibilty training, Gait and locomotor training, Passive ROM, Active ROM For the Purpose of:: To decrease pain, To decrease swelling/inflammation, To increase ROM, To improve nutrient delivery to tissue, To increase oxygenation perfusion, To improve ability to perform ADL's, To increase tolerance to activity/condition/position, To improve performance and independence with ADL's, To decrease level of supervision to perform tasks, To improve ability of phys ical actions for home/community/work/leisure, To improve gait and locomotor functions, To improve health of tissue, To decrease soft tissue restriction, To increase flexibility/ROM Functional Training to Include: Functional home training, Gait training Comments: stairs For the Purpose of:: To decrease pain, To decrease swelling/inflammation, To increase ROM, To improve nutrient delivery to tissue, To improve muscle performance and motor function, To improve ability to perform ADL's, To increase tolerance to activity/condition/position, To improve performance and independence with ADL's, To improve gait and locomotor functions, To improve health of tissue, To decrease soft tissue restriction, To increase flexibility/ ROM Manual Therapy Techniques to Include: Mobilization, Passive ROM For the Purpose of:: To decrease pain, To decrease swelling/inflammation, To increase ROM, To improve nutrient delivery to tissue Cryotherapy (ice pack, ice massage): Yes For the Purpose of:: To decrease pain, To decrease swelling/inflammation, To improve nutrient delivery to tissue Thank you for the opportunity to evaluate your patient. For Medicare and Medicare HMO plans, please review the plan of care and approve it. It will need to be FAXED BACK to us at [phone] for Medicare purposes. For Medicare only, by signing this I certify the plan of care. Please let me know if there are questions or concerns regarding this plan of care. Physician Signature: Date:
--- NOTE | 2021-04-25 11:10 | HP.SP.AD_ITS ---
History - History Date of Eval: 04/25/21 Medical Diagnosis (from RX): Memory deficits Date of Onset of Diagnosis: 04/08/21 Previous speech therapy: Yes Results: While in Rehab, Other Relevant Medical History/Diagnoses/Surgery: PMH of anxiety/depression, chronic back pain, chronic bronchitis, GERD, presbycusis, hyperlipidemia, insomnia, hypertension, irritable bowel syndrome, urinary incontinence, osteoarthritis, tobacco dependence in remission, obstructive sleep apnea, osteoporosis, periodic limb movement disorder and rheumatoid arthritis. Medications related to this diagnosis: aspirin 81 mg tablet,delayed release 81 mg PO QDAY 07/19/17. hydroxychloroquine 200 mg tablet 200 mg PO BID 10/03/19. cholecalciferol (vitamin D3) 50 mcg (2,000 unit) capsule 50 mcg PO DAILY 02/13/21. ropinirole 1 mg tablet 1 mg PO QHS tab 03/03/21. amlodipine 10 mg PO QDAY 03/11/21. omeprazole 20 mg PO QDAY 03/11/21. sertraline 75 mg PO DAILY 03/11/21. Eliquis 2.5 mg PO BID #42 tab 04/17/21. acetaminophen 1,000 mg PO Q6H PRN #0 tab 04/17/21. lisinopril 2.5 mg PO HS #30 tab 04/17/21. pregabalin 25 mg PO 2000 #30 cap 04/17/21. tramadol 50 mg PO Q6H PRN PRN 7 Days #20 tab 04/17/21. cephalexin [Keflex] 750 mg PO Q8H #15 cap 04/18/21 Smoking Status: Former smoker Hx Smoking Cessation Date: 03/11/96 Hx Tobacco Use: No - Pain Is pain an issue with your current prescribed condition?: No - Personal Occupation: Retired Right Hearing Abillity: Use of Hearing Aid Left Hearing Abillity: Use of Hearing Aid Patients Living Arrangements: Alone Patient Allergies - Allergies Allergies No Known Allergies Allergy (Verified 04/25/21 10:58) Objective Cog/Ling/Com - Test Administered Tzpjyfxza-Ggzxtoygjc-Ovamxremizyyd Assessment Administered: Yes Ibhpfkzjm-Hgckwejaxy-Pdwpqsezsbbrk Assessment: Cognitive ? Linguistic skills were evaluated using patient/family interview, skilled observation and informal evaluation through tasks completed by the patient. - Orientation Orientation: Person, Place, Date, Day, Birthdate, Medical Diagnosis CLQT - CLQT CLQT Administered: Yes CLQT: Cognitive Linguistic Quick Test (CLQT) is a criterion - referenced assessment designed for adults between the ages of 18 and 89 with known or suspected neurological dysfuntions. The CLQT is to assess strength and weaknesses in five cognitive domains. Severity ratings are within normal limits, mild, moderate, severe deficits. The subtests are as follows: Date: 04/25/21 - Attention Attention: WNL - Memory Memory: WNL - Executive Functions Executive Functions: Mild - Language Language: WNL - Visuospatial Skills Visuospatial Skills: WNL - Composite Severity Rating Composite Severity Rating: WNL - Clock Drawing Severity Rating Clock Drawing Severity Rating: Moderate - CLQT Comments Analysis Eduarda appeared to struggle with recall of directions on several subtests. She was not wearing her hearing aids and therapist was masked which may have i mpacted following directions, however, she started a task then asked for directions to be repeated again during the task. Her Executive function subtest was on the border of mild to moderate (14-18 is mild and 8-13 is moderate) as her score was 14. She was not able to recall details of physical therapy evaluation from two days ago and did not know if any was recommended (recommended 2x a week 4-6 weeks). Delayed recall is impaired as she is struggling with recall of strategies placed from hospital speech therapy. Plan - Plan Plan: Skilled direct speech therapy is warranted to target mild to moderate executive function deficits as well as recall using verbal and visual modeling, verbal, visual, and tactile cuing, repeated practice, and immediate feedback. - Recommendations Treatment Warranted: Yes - Frequency Frequency: 1x/Week Duration: 6 Weeks Visits in this POC: 6 - Goals that are Established: Determination:: Goals will be added/modified as deemed necessary and appropriate. Therapy will be discontinued when results of re-evaluation indicate therapy is no longer needed or lack of progress has been documented. - Goal #1-5 Goal #1: Marina will complete safety awareness tasks including but not limited to medication tasks, household problems and healthcare safety using appropriate problem solving, judgement, and reasoning on 4/5 tasks on 2/3 sessions. Goal #2: Marina will demonstrate and utilize recommended compensatory recall techniques (external memory aids such as calendars and alarms) to facilitate improved recall for functional tasks including but not limited to appointments and important dates with minimal cues by the end of therapy. Education - Patient has Indicated that the Following Identified Educational Needs: Cognitively Impaired - Patient Instruction Patient Education: Diagnosis, Treatment Plan, Goals Person Taught: Patient Teaching Method: Discussion Response to teaching: Verbalize understanding, Reinforcement needed
--- NOTE | 2021-05-28 16:19 | HP.PTDCSUM ---
It has been my pleasure to treat BRANDI SWEENEY referred by Dr. Berta Sofia MD, with the diagnosis of R TKR 04/08 (memory deficits) for a total of 7 visit(s). Discharge Date: Please see the following information for a summary of their discharge status. Subjective: Pt feels that her R knee is good and she did not sleep good last night. R knee pain Pain Intensity (Out of 10): 0 % Improvement: 100 Objective/Function: 0-124 degrees R knee flexion. Gait: walks with good gait pattern with no veering. Stairs: up and down the stairs recip with 1 hand rail. Pt has very slight decreased fluid movement descending the steps but still very smooth. TUG 8.84 sec. patella girth 35. Girth 6 patella 46.4 Goal 1:: I HEP Goal Progress: Goal Met Goal 2:: Increase R knee AROM 0-120 degrees R knee flexion Goal Progress: Goal Met Goal 3:: Walk with a normal gait pattern without AD or antalgic gait. Goal Progress: Progressing Goal 4:: Be able to go up and down the stairs recip without antalgic gait Goal Progress: Progressing Plan: DC PT to HEP If there are questions or concerns regarding this patient's physical therapy, please feel free to call me at [phone]. Thank you for the referral of this patient. Sincerely, Daisy Perez, MPT Balance/Gait/Functional tests - Balance/Special Test Scores Lower Extremity Functional Score: 75 WOMAC Total Score: 3 WOMAC Percentage: 96.8800
--- NOTE | 2021-06-02 15:29 | HP.SP.DC ---
ST Discharge Summary - Discharged: Discharge: Marina Ruano is discharged from [facility] speech therapy as of June 02, 2021. She was treated for 4 sessions for recall and cognitive deficits. She initially seemed more confused but stated she had a recent medication change that helped her thinking become clearer. She was able to complete safety awareness and problem-solving tasks with full answers by the end of the sessions. She also can use external recall strategies such as a calendar consistently. She was able to come up with her own strategy to tell AM from PM medications also. Testing demonstrated WNL on the CLQT. No further therapy is warranted at this time. Thank you for allowing me to participate in the care of this patient.
== END 2021-06-02 19:00 | disposition home or self-care (01) ==
LOC: SP 14:30
PROVIDERS: PCP Internal Medicine; Referring Provider Internal Medicine; Visit Provider Internal Medicine
DX: R41.3 Other amnesia (principal); Z96.651 Presence of right artificial knee joint
CPT/HCPCS: 92507; 92523; 97110; 97161; 97530

== ENCOUNTER 2021-08-04 14:06 | Outpatient (CLI) | payer MEDICARE, OTHER, SELFPAY ==
[2021-08-04 15:06] LABS: Absolute Lymphocyte Count 1.47 X10^3/uL (0.83-4.51); Absolute Neutrophil Count 7.2 X10^3/uL (2.0-7.7); Basophil# 0.09 X10^3/uL; Basophil% 0.9 % (0-1); Eosinophil# 0.31 X10^3/uL; Eosinophils% 3.2 % (0-5); Hematocrit 40.8 % (37-47); Hemoglobin 13.3 g/dL (12.0-15.0); Lymphocyte # 1.47 X10^3/ul (0.83-4.51); Lymphocyte % 15.3 % (19-41); Mean Corp Hgb Conc 32.6 g/dL (32-36); Mean Corpuscular Hgb 25.5 pg (27.0-32.0); Mean Corpuscular Volume 78.3 fL (81-99); Mean Platelet Vol. 8.6 fl (6.2-12.0); Monocyte# 0.45 X10^3/uL; Monocyte% 4.7 % (0-10); NRBC Flagged by Analyzer 0 % (0-5); Neutrophil # 7.21 X10^3/uL (2.7-7.7); Neutrophil % 75.4 % (47-70); Platelet Count 322 K/mm3 (150-450); RBC Distribution Width CV 15.9 % (11.6-14.6); RBC Distribution Width SD 45.2 fl (35.1-43.9); Red Blood Count 5.21 M/mm3 (4.2-5.4); White Blood Count 9.6 K/mm3 (4.4-11.0)
[2021-08-04 15:17] LABS: ALB/GLOB Ratio 0.9 RATIO (0.9-2.4); AST(SGOT) 25 U/L (15-37); Alanine Aminotransfer ALT/SGPT 31 U/L (13-56); Albumin, Serum 3.6 g/dL (3.2-5.0); Alkaline Phosphatase 57 U/L (45-117); Anion Gap 5 (5-15); BUN 14 mg/dL (7-18); BUN/Creat Ratio 14.3 RATIO (10-20); Calcium,Total 9.3 mg/dL (8.5-10.1); Chloride 106 mmol/L (98-107); Creatinine, Serum 0.98 mg/dL (0.55-1.02); EST Glomerular Filtration Rate 59 mL/min (>60); Est Glom Filt Rate - Afr Amer 71 mL/min (>60); Globulin 3.9 g/dL (2.2-4.2); Glucose 129 mg/dL (74-106); Potassium 3.8 mmol/L (3.5-5.1); Protein, Total 7.5 g/dL (6.4-8.2); Sodium Level 140 mmol/L (136-145)
== END 2021-08-04 23:59 | disposition home or self-care (01) ==
LOC: BIMLAB 14:08
PROVIDERS: PCP Internal Medicine; Referring Provider Internal Medicine Rheumatology; Visit Provider Internal Medicine Rheumatology
DX: M06.4 Inflammatory polyarthropathy (principal); M35.3 Polymyalgia rheumatica; M65.321 Trigger finger, right index finger; E78.5 Hyperlipidemia, unspecified; K58.9 Irritable bowel syndrome, unspecified; G47.33 Obstructive sleep apnea (adult) (pediatric); F32.A Depression, unspecified; Z79.899 Other long term (current) drug therapy
CPT/HCPCS: 36415; 80053; 85025

== ENCOUNTER 2021-09-17 14:12 | Outpatient (CLI) | payer MEDICARE, OTHER, SELFPAY ==
[2021-09-17 14:38] LABS: Mucous, Urine 0 SEEN /hpf (<or=2+); Red Blood Cells-Urine 0 SEEN /hpf (0-5)
[2021-09-17 15:37] LABS: Anion Gap 7 (5-15); BUN 23 mg/dL (7-18); BUN/Creat Ratio 25.7 RATIO (10-20); Calcium,Total 9.1 mg/dL (8.5-10.1); Chloride 105 mmol/L (98-107); EST Glomerular Filtration Rate 65 mL/min (>60); Est Glom Filt Rate - Afr Amer 79 mL/min (>60); Glucose 152 mg/dL (74-106); Potassium 3.9 mmol/L (3.5-5.1); Sodium Level 140 mmol/L (136-145)
[2021-09-17 15:45] LABS: Color, Urine Yellow (Yellow); Glucose, Dipstick Normal (Normal); Ketone-Dipstick 5 mg/dl (Negative); Leukocyte Esterase-Dipstick 500 /ul (Negative); Nitrite-Dipstick Negative (Negative); Occult Blood-Urine Negative /ul (Negative); Protein-Dipstick 15 mg/dl (Negative); Urine Bilirubin Dipstick Negative (Negative); Urine Clarity Clear (Clear); Urine Urobilinogen Normal (Normal)
[2021-09-17 15:58] LABS: Hyaline Cast 10-25 SEEN /lpf (0-5)
[2021-09-17 15:59] LABS: White Blood Cells 50-100 SEEN /hpf (0-5)
[2021-09-17 16:00] LABS: Bacteria 1+ /hpf (None Seen); Squamous Epithelial Cells - UA 0-5 SEEN /hpf (5-10)
== END 2021-09-17 23:59 | disposition home or self-care (01) ==
LOC: BIMLAB 14:13
PROVIDERS: PCP Internal Medicine; Referring Provider Internal Medicine; Visit Provider Internal Medicine
DX: I10 Essential (primary) hypertension (principal); R35.1 Nocturia
CPT/HCPCS: 36415; 80048; 81001; 87086; 87088

== ENCOUNTER 2021-09-19 15:03 | Outpatient (CLI) | payer MEDICARE, OTHER, SELFPAY ==
[2021-09-19 16:11] LABS: Hemoglobin A1c 5.4 % (3.8-5.6)
== END 2021-09-19 23:59 | disposition home or self-care (01) ==
PROVIDERS: PCP Internal Medicine; Visit Provider Internal Medicine
DX: R73.9 Hyperglycemia, unspecified (principal)
CPT/HCPCS: 36415; 83036

== ENCOUNTER → 2022-02-23 | Outpatient (CLI) | payer MEDICARE, OTHER, SELFPAY ==
[2022-02-23 17:52] LABS: Absolute Lymphocyte Count 1.82 X10^3/uL (0.83-4.51); Absolute Neutrophil Count 4.3 X10^3/uL (2.0-7.7); Basophil# 0.07 X10^3/uL; Eosinophil# 0.26 X10^3/uL; Eosinophils% 3.8 % (0-5); Hematocrit 37.9 % (37-47); Hemoglobin 11.5 g/dL (12.0-15.0); Lymphocyte # 1.82 X10^3/ul (0.83-4.51); Lymphocyte % 26.6 % (19-41); Mean Corp Hgb Conc 30.3 g/dL (32-36); Mean Corpuscular Hgb 23.6 pg (27.0-32.0); Mean Corpuscular Volume 77.8 fL (81-99); Mean Platelet Vol. 8.9 fl (6.2-12.0); Monocyte% 5.8 % (0-10); NRBC Flagged by Analyzer 0 % (0-5); Neutrophil # 4.29 X10^3/uL (2.7-7.7); Neutrophil % 62.7 % (47-70); Platelet Count 269 K/mm3 (150-450); RBC Distribution Width CV 15.3 % (11.6-14.6); RBC Distribution Width SD 42.8 fl (35.1-43.9); Red Blood Count 4.87 M/mm3 (4.2-5.4); White Blood Count 6.9 K/mm3 (4.4-11.0)
[2022-02-23 18:38] LABS: AST(SGOT) 23 U/L (15-37); Alanine Aminotransfer ALT/SGPT 27 U/L (13-56); Albumin, Serum 3.4 g/dL (3.2-5.0); Alkaline Phosphatase 55 U/L (45-117); Anion Gap 7 (5-15); BUN 18 mg/dL (7-18); BUN/Creat Ratio 21.3 RATIO (10-20); Calcium,Total 9.4 mg/dL (8.5-10.1); Chloride 107 mmol/L (98-107); Creatinine, Serum 0.84 mg/dL (0.55-1.02); EST Glomerular Filtration Rate 69 mL/min (>60); Est Glom Filt Rate - Afr Amer 84 mL/min (>60); Globulin 3.5 g/dL (2.2-4.2); Glucose 88 mg/dL (74-106); Potassium 3.8 mmol/L (3.5-5.1); Protein, Total 6.9 g/dL (6.4-8.2); Sodium Level 141 mmol/L (136-145)
== END | disposition home or self-care (01) ==
PROVIDERS: PCP Internal Medicine; Referring Provider Internal Medicine Rheumatology; Visit Provider Internal Medicine Rheumatology
DX: M06.4 Inflammatory polyarthropathy (principal); M35.3 Polymyalgia rheumatica; Z79.899 Other long term (current) drug therapy; M65.321 Trigger finger, right index finger; E78.5 Hyperlipidemia, unspecified; K58.9 Irritable bowel syndrome, unspecified; G47.33 Obstructive sleep apnea (adult) (pediatric); F32.9 Major depressive disorder, single episode, unspecified
CPT/HCPCS: 36415; 80053; 85025

== ENCOUNTER → 2022-03-25 | Outpatient (CLI) | payer MEDICARE, OTHER, SELFPAY ==
--- NOTE | 2022-03-25 12:22 | EKG12_ITS ---
Test Reason : ROUTINE Blood Pressure : / mmHG Vent. Rate : 071 BPM Atrial Rate : 071 BPM P-R Int : 138 ms QRS Dur : 086 ms QT Int : 432 ms P-R-T Axes : 025 012 059 degrees QTc Int : 469 ms Normal sinus rhythm Low voltage QRS Borderline ECG Confirmed by ROSA RIVERA, HAYDER ([id number]), make up editor DONALD COLLIER ([id number]) on 03/26/2022 9:51:07 AM Referred By: Berta Sofia Confirmed By:HAYDER LEE MD
== END | disposition home or self-care (01) ==
LOC: PSN 12:21
PROVIDERS: PCP Internal Medicine; Referring Provider Internal Medicine; Visit Provider Internal Medicine
DX: I10 Essential (primary) hypertension (principal)
CPT/HCPCS: 93005

== ENCOUNTER → 2022-04-10 | Outpatient (CLI) | payer MEDICARE, OTHER, SELFPAY | END | disposition home or self-care (01) | LOC: PSN 11:56 | PROVIDERS: PCP Internal Medicine; Referring Provider Internal Medicine; Visit Provider Internal Medicine | DX: I49.8 Other specified cardiac arrhythmias (principal) | CPT/HCPCS: 93225; 93226 ==

== ENCOUNTER → 2022-08-24 | Outpatient (CLI) | payer MEDICARE, OTHER, SELFPAY ==
[2022-08-24 15:16] LABS: Absolute Lymphocyte Count 2.01 X10^3/uL (0.83-4.51); Absolute Neutrophil Count 3.9 X10^3/uL (2.0-7.7); Basophil% 1.5 % (0-1); Eosinophil# 0.42 X10^3/uL; Eosinophils% 6.2 % (0-5); Hematocrit 38.7 % (37-47); Lymphocyte # 2.01 X10^3/ul (0.83-4.51); Lymphocyte % 29.6 % (19-41); Mean Corpuscular Hgb 23.7 pg (27.0-32.0); Mean Corpuscular Volume 76.3 fL (81-99); Mean Platelet Vol. 8.4 fl (6.2-12.0); Monocyte# 0.35 X10^3/uL; Monocyte% 5.1 % (0-10); NRBC Flagged by Analyzer 0 % (0-5); Neutrophil % 57.3 % (47-70); Platelet Count 271 K/mm3 (150-450); RBC Distribution Width CV 15.1 % (11.6-14.6); RBC Distribution Width SD 41.1 fl (35.1-43.9); Red Blood Count 5.07 M/mm3 (4.2-5.4); White Blood Count 6.8 K/mm3 (4.4-11.0)
[2022-08-24 15:27] LABS: ALB/GLOB Ratio 0.9 RATIO (0.9-2.4); AST(SGOT) 20 U/L (15-37); Alanine Aminotransfer ALT/SGPT 25 U/L (13-56); Albumin, Serum 3.5 g/dL (3.2-5.0); Alkaline Phosphatase 53 U/L (45-117); Anion Gap 6 (5-15); BUN 12 mg/dL (7-18); BUN/Creat Ratio 13.5 RATIO (10-20); Chloride 108 mmol/L (98-107); Creatinine, Serum 0.89 mg/dL (0.55-1.02); EST Glomerular Filtration Rate 65 mL/min (>60); Est Glom Filt Rate - Afr Amer 79 mL/min (>60); Globulin 3.7 g/dL (2.2-4.2); Glucose 111 mg/dL (74-106); Potassium 3.9 mmol/L (3.5-5.1); Protein, Total 7.2 g/dL (6.4-8.2); Sodium Level 141 mmol/L (136-145)
== END | disposition home or self-care (01) ==
PROVIDERS: PCP Internal Medicine; Referring Provider Internal Medicine Rheumatology; Visit Provider Internal Medicine Rheumatology
DX: M06.4 Inflammatory polyarthropathy (principal); M35.00 Sjogren syndrome, unspecified; M65.321 Trigger finger, right index finger; E78.5 Hyperlipidemia, unspecified; K58.9 Irritable bowel syndrome, unspecified; G47.33 Obstructive sleep apnea (adult) (pediatric); F32.9 Major depressive disorder, single episode, unspecified; Z79.899 Other long term (current) drug therapy
CPT/HCPCS: 36415; 80053; 85025

== ENCOUNTER → 2022-09-01 | Outpatient (CLI) | payer MEDICARE, OTHER, SELFPAY ==
[2022-09-01 11:13] LABS: Bacteria 0 SEEN /hpf (None Seen); Mucous, Urine 0 SEEN /hpf (<or=2+); Red Blood Cells-Urine 0 SEEN /hpf (0-5); Squamous Epithelial Cells - UA 0 SEEN /hpf (5-10)
--- NOTE | 2022-09-01 11:45 | RAD_ITS ---
STUDY: XR Chest 2 Views 09/01/2022 11:52 AM REASON FOR EXAM: Female, 77 years old. CHEST PAIN cough COMPARISON: None TECHNIQUE: XR Chest 2 Views FINDINGS: There is no demonstrated pleural abnormality. Normal heart size. Normal mediastinum. Normal crow. Prominent appearing increased interstitial lung markings. Normal visualized pulmonary arteries. There is atherosclerotic calcification of the aortic arch with tortuosity. There are diffuse degenerative changes of the visualized thoracic spine. There is degenerative osteoarthritis of the bilateral shoulders. There is no demonstrated abnormality of the visualized soft tissue structures of the upper abdomen. RAD/Chest PA and Lateral IMPRESSION: There are no acute findings. Electronically Signed: Davin Valle MD at 18:08 EST ,
[2022-09-01 12:21] LABS: Absolute Lymphocyte Count 0.63 X10^3/uL (0.83-4.51); Absolute Neutrophil Count 4.3 X10^3/uL (2.0-7.7); Basophil# 0.03 X10^3/uL; Basophil% 0.5 % (0-1); Eosinophil# 0.13 X10^3/uL; Eosinophils% 2.3 % (0-5); Hematocrit 36.9 % (37-47); Hemoglobin 11.3 g/dL (12.0-15.0); Lymphocyte # 0.63 X10^3/ul (0.83-4.51); Lymphocyte % 11.4 % (19-41); Mean Corp Hgb Conc 30.6 g/dL (32-36); Mean Corpuscular Hgb 23.3 pg (27.0-32.0); Mean Corpuscular Volume 76.1 fL (81-99); Mean Platelet Vol. 8.9 fl (6.2-12.0); Monocyte# 0.47 X10^3/uL; Monocyte% 8.5 % (0-10); NRBC Flagged by Analyzer 0.4 % (0-5); Neutrophil # 4.27 X10^3/uL (2.7-7.7); Neutrophil % 76.9 % (47-70); Platelet Count 223 K/mm3 (150-450); RBC Distribution Width CV 15.4 % (11.6-14.6); RBC Distribution Width SD 42.1 fl (35.1-43.9); Red Blood Count 4.85 M/mm3 (4.2-5.4); White Blood Count 5.6 K/mm3 (4.4-11.0)
[2022-09-01 12:22] LABS: Color, Urine Yellow (Yellow); Glucose, Dipstick Normal (Normal); Ketone-Dipstick Negative (Negative); Leukocyte Esterase-Dipstick 25 /ul (Negative); Nitrite-Dipstick Negative (Negative); Occult Blood-Urine 50 /ul (Negative); Protein-Dipstick 30 mg/dl (Negative); Specific Gravity, Urine 1.025 (1.002-1.030); Urine Bilirubin Dipstick Negative (Negative); Urine Clarity Clear (Clear); Urine Urobilinogen Normal (Normal)
[2022-09-01 12:44] LABS: AST(SGOT) 23 U/L (15-37); Alanine Aminotransfer ALT/SGPT 23 U/L (13-56); Albumin, Serum 3.7 g/dL (3.2-5.0); Alkaline Phosphatase 56 U/L (45-117); Anion Gap 7 (5-15); BUN 12 mg/dL (7-18); BUN/Creat Ratio 14.3 RATIO (10-20); Calcium,Total 9.1 mg/dL (8.5-10.1); Chloride 104 mmol/L (98-107); Creatinine, Serum 0.84 mg/dL (0.55-1.02); EST Glomerular Filtration Rate 70 mL/min (>60); Est Glom Filt Rate - Afr Amer 84 mL/min (>60); Globulin 3.7 g/dL (2.2-4.2); Glucose 105 mg/dL (74-106); Potassium 3.9 mmol/L (3.5-5.1); Protein, Total 7.4 g/dL (6.4-8.2); Sodium Level 138 mmol/L (136-145)
[2022-09-01 12:44] LABS: White Blood Cells 0-5 SEEN /hpf (0-5)
== END | disposition home or self-care (01) ==
PROVIDERS: PCP Internal Medicine; Referring Provider Nurse Practitioner Family; Visit Provider Nurse Practitioner Family
DX: R06.02 Shortness of breath (principal); R05.9 Cough, unspecified; R50.9 Fever, unspecified; I10 Essential (primary) hypertension; N39.0 Urinary tract infection, site not specified
CPT/HCPCS: 36415; 71046; 80053; 81001; 84443; 85025; 87086

== ENCOUNTER → 2022-12-31 | Outpatient (CLI) | payer MEDICARE, OTHER, SELFPAY ==
--- NOTE | 2022-12-31 15:20 | RAD_ITS ---
EXAM: XR CHEST, 2 VIEWS CLINICAL INDICATION: Cough TECHNIQUE: Frontal and lateral views of the chest. COMPARISON: 09/01/2022. FINDINGS: LUNGS AND PLEURAL SPACES: Unremarkable. No consolidation or edema. No pneumothorax. No effusion. HEART: Unremarkable. Cardiac silhouette not enlarged. MEDIASTINUM: Central airways and mediastinal contour are unremarkable. BONES/JOINTS: Unremarkable. SOFT TISSUES: Unremarkable. RAD/Chest PA and Lateral IMPRESSION: No acute cardiopulmonary abnormality. Electronically Signed: Rigoberto Knight MD at 5:39 EDT ,
[2022-12-31 16:49] LABS: Absolute Lymphocyte Count 2.29 X10^3/uL (0.83-4.51); Absolute Neutrophil Count 5.7 X10^3/uL (2.0-7.7); Basophil# 0.12 X10^3/uL; Basophil% 1.3 % (0-1); Eosinophil# 0.35 X10^3/uL; Eosinophils% 3.9 % (0-5); Hematocrit 39.2 % (37-47); Hemoglobin 11.7 g/dL (12.0-15.0); Lymphocyte # 2.29 X10^3/ul (0.83-4.51); Lymphocyte % 25.5 % (19-41); Mean Corp Hgb Conc 29.8 g/dL (32-36); Mean Corpuscular Hgb 23.5 pg (27.0-32.0); Mean Corpuscular Volume 78.7 fL (81-99); Mean Platelet Vol. 9.2 fl (6.2-12.0); Monocyte# 0.54 X10^3/uL; NRBC Flagged by Analyzer 0 % (0-5); Neutrophil # 5.67 X10^3/uL (2.7-7.7); Neutrophil % 63.2 % (47-70); Platelet Count 304 K/mm3 (150-450); RBC Distribution Width CV 16.4 % (11.6-14.6); RBC Distribution Width SD 46.3 fl (35.1-43.9); Red Blood Count 4.98 M/mm3 (4.2-5.4)
[2022-12-31 17:21] LABS: Hemoglobin A1c 5.6 % (3.8-5.6)
[2022-12-31 17:23] LABS: Anion Gap 9 (5-15); BUN 20 mg/dL (7-18); BUN/Creat Ratio 23.9 RATIO (10-20); Calcium,Total 9.2 mg/dL (8.5-10.1); Chloride 108 mmol/L (98-107); Cholesterol 206 mg/dL (200); Creatinine, Serum 0.84 mg/dL (0.55-1.02); EST Glomerular Filtration Rate 70 mL/min (>60); Est Glom Filt Rate - Afr Amer 84 mL/min (>60); Glucose 99 mg/dL (74-106); High Density Lipoprotein 60 mg/dL; Potassium 3.5 mmol/L (3.5-5.1); Sodium Level 143 mmol/L (136-145); Triglycerides 181 mg/dL; Very Low Density Lipoprotein 36 mg/dL (5-40)
== END | disposition home or self-care (01) ==
PROVIDERS: PCP Internal Medicine; Referring Provider Internal Medicine; Visit Provider Internal Medicine
DX: F32.A Depression, unspecified (principal); F41.9 Anxiety disorder, unspecified; I10 Essential (primary) hypertension; R73.9 Hyperglycemia, unspecified; R05.9 Cough, unspecified
CPT/HCPCS: 36415; 71046; 80048; 80061; 83036; 85025

== ENCOUNTER → 2023-01-05 | Outpatient (CLI) | payer MEDICARE, OTHER, SELFPAY ==
--- NOTE | 2023-01-05 12:40 | CT_ITS ---
EXAM: CT CHEST WITHOUT INTRAVENOUS CONTRAST CLINICAL INDICATION: Chronic Cough. Negative CXR TECHNIQUE: Helically acquired images were obtained of the chest without intravenous contrast. This CT exam was performed using one or more of the following dose reduction techniques: automated exposure control, adjustment of the mA and/or kV according to patient size, and/or use of iterative reconstruction technique. COMPARISON: No relevant prior studies available. FINDINGS: LUNGS AND PLEURAL SPACES: Unremarkable. No mass. No consolidation or edema. No pleural effusion or thickening. No pneumothorax. HEART: Unremarkable. Heart size is normal. No pericardial effusion. No significant coronary artery calcifications. MEDIASTINUM: Unremarkable. No mediastinal or hilar adenopathy. Esophagus is unremarkable. No hiatal hernia. THYROID: Unremarkable. No thyroid lesions. BONES/JOINTS: Unremarkable. No suspicious lytic or blastic abnormality. VASCULATURE: Unremarkable. Thoracic aorta is non-dilated. CT/Chest without Contrast IMPRESSION: Negative CT chest without intravenous contrast. Electronically Signed: Britton Yadav MD at 23:47 EDT ,
== END | disposition home or self-care (01) ==
PROVIDERS: PCP Internal Medicine; Referring Provider Internal Medicine; Visit Provider Internal Medicine
DX: R05.3 Chronic cough (principal); G47.33 Obstructive sleep apnea (adult) (pediatric)
CPT/HCPCS: 71250; 98960; G0463

== ENCOUNTER → 2023-01-07 | Outpatient (CLI) | payer MEDICARE, OTHER, SELFPAY ==
--- NOTE | 2023-01-09 11:46 | PFTCOMP_ITS ---
COMPLETE PULMONARY FUNCTION TEST INTERPRETATION Brief HPI: Patient is a 77-year-old female, currently under the care of Dr. Sofia, who presents to [facility] for complete pulmonary function tests secondary to diagnosis of cough. Respiratory therapist reports good effort and reproducible results. Interpretation: Forced expiration spirometry shows a mild large airways obstructive ventilatory defect with an FEV1 of 84% predicted. There is no significant bronchodilator response by strict ATS criteria. Spirograms are of good quality and plateau slowly, indicating slowly emptying areas of the lungs. The respiratory flow volume loop shows decreased expiratory flow rates at all lung volumes consistent with airway obstruction. Lung volumes by body plethysmography show a normal total lung capacity at 4.74 L, 98% predicted. All other lung volumes are within normal limits. Diffusion capacity by carbon monoxide is normal at 83% predicted. The airway resistance is normal. Compared to previous pulmonary function tests from 05/11/2017, there has been no significant change. Impression: Irreversible mild large airways obstructive ventilatory defect with no significant change compared to 2017
== END | disposition home or self-care (01) ==
LOC: PSN 09:25
PROVIDERS: PCP Internal Medicine; Referring Provider Internal Medicine; Visit Provider Internal Medicine
DX: R05.3 Chronic cough (principal)
CPT/HCPCS: 94060; 94726; 94729

== ENCOUNTER → 2023-02-11 | Outpatient (CLI) | payer MEDICARE, OTHER, SELFPAY ==
[2023-02-11 17:38] LABS: Absolute Lymphocyte Count 1.78 X10^3/uL (0.83-4.51); Absolute Neutrophil Count 4.4 X10^3/uL (2.0-7.7); Basophil# 0.09 X10^3/uL; Basophil% 1.3 % (0-1); Eosinophils% 5.6 % (0-5); Hematocrit 39.4 % (37-47); Hemoglobin 11.8 g/dL (12.0-15.0); Lymphocyte # 1.78 X10^3/ul (0.83-4.51); Lymphocyte % 25.1 % (19-41); Mean Corp Hgb Conc 29.9 g/dL (32-36); Mean Corpuscular Hgb 23.4 pg (27.0-32.0); Mean Corpuscular Volume 78.2 fL (81-99); Mean Platelet Vol. 9.3 fl (6.2-12.0); Monocyte# 0.43 X10^3/uL; Monocyte% 6.1 % (0-10); NRBC Flagged by Analyzer 0 % (0-5); Neutrophil # 4.37 X10^3/uL (2.7-7.7); Neutrophil % 61.6 % (47-70); Platelet Count 255 K/mm3 (150-450); RBC Distribution Width CV 15.3 % (11.6-14.6); Red Blood Count 5.04 M/mm3 (4.2-5.4); White Blood Count 7.1 K/mm3 (4.4-11.0)
[2023-02-11 18:13] LABS: AST(SGOT) 22 U/L (15-37); Alanine Aminotransfer ALT/SGPT 22 U/L (13-56); Albumin, Serum 3.5 g/dL (3.2-5.0); Alkaline Phosphatase 58 U/L (45-117); Anion Gap 6 (5-15); BUN 17 mg/dL (7-18); BUN/Creat Ratio 19.3 RATIO (10-20); Chloride 106 mmol/L (98-107); Creatinine, Serum 0.88 mg/dL (0.55-1.02); EST Glomerular Filtration Rate 66 mL/min (>60); Est Glom Filt Rate - Afr Amer 80 mL/min (>60); Globulin 3.6 g/dL (2.2-4.2); Glucose 91 mg/dL (74-106); Potassium 3.7 mmol/L (3.5-5.1); Protein, Total 7.1 g/dL (6.4-8.2); Sodium Level 141 mmol/L (136-145)
== END | disposition home or self-care (01) ==
LOC: MTLAB 14:20
PROVIDERS: PCP Internal Medicine; Visit Provider Internal Medicine Rheumatology
DX: M06.4 Inflammatory polyarthropathy (principal); M35.00 Sjogren syndrome, unspecified; M65.321 Trigger finger, right index finger; K58.9 Irritable bowel syndrome, unspecified; G47.33 Obstructive sleep apnea (adult) (pediatric); F32.A Depression, unspecified; E78.5 Hyperlipidemia, unspecified; Z79.899 Other long term (current) drug therapy
CPT/HCPCS: 36415; 80053; 85025

== ENCOUNTER → 2023-07-14 | Outpatient (CLI) | payer MEDICARE, OTHER, SELFPAY ==
[2023-07-14 15:36] LABS: Absolute Lymphocyte Count 2.21 X10^3/uL (0.83-4.51); Absolute Neutrophil Count 5.5 X10^3/uL (2.0-7.7); Basophil# 0.09 X10^3/uL; Eosinophil# 0.27 X10^3/uL; Eosinophils% 3.1 % (0-5); Hematocrit 39.3 % (37-47); Hemoglobin 11.9 g/dL (12.0-15.0); Lymphocyte # 2.21 X10^3/ul (0.83-4.51); Lymphocyte % 25.5 % (19-41); Mean Corp Hgb Conc 30.3 g/dL (32-36); Mean Corpuscular Hgb 23.5 pg (27.0-32.0); Mean Corpuscular Volume 77.7 fL (81-99); Mean Platelet Vol. 9.3 fl (6.2-12.0); Monocyte# 0.56 X10^3/uL; Monocyte% 6.5 % (0-10); NRBC Flagged by Analyzer 0 % (0-5); Neutrophil # 5.53 X10^3/uL (2.7-7.7); Neutrophil % 63.8 % (47-70); Platelet Count 309 K/mm3 (150-450); RBC Distribution Width CV 16.2 % (11.6-14.6); RBC Distribution Width SD 44.8 fl (35.1-43.9); Red Blood Count 5.06 M/mm3 (4.2-5.4); White Blood Count 8.7 K/mm3 (4.4-11.0)
[2023-07-14 16:19] LABS: ALB/GLOB Ratio 1.1 RATIO (0.9-2.4); AST(SGOT) 31 U/L (15-37); Alanine Aminotransfer ALT/SGPT 28 U/L (13-56); Albumin, Serum 3.8 g/dL (3.2-5.0); Alkaline Phosphatase 49 U/L (45-117); Anion Gap 6 (5-15); BUN 22 mg/dL (7-18); BUN/Creat Ratio 25.2 RATIO (10-20); Calcium,Total 8.9 mg/dL (8.5-10.1); Chloride 109 mmol/L (98-107); Creatinine, Serum 0.87 mg/dL (0.55-1.02); EST Glomerular Filtration Rate 67 mL/min (>60); Est Glom Filt Rate - Afr Amer 80 mL/min (>60); Globulin 3.4 g/dL (2.2-4.2); Glucose 118 mg/dL (74-106); Potassium 3.9 mmol/L (3.5-5.1); Protein, Total 7.2 g/dL (6.4-8.2); Sodium Level 143 mmol/L (136-145)
== END | disposition home or self-care (01) ==
LOC: BIMLAB 14:30
PROVIDERS: PCP Internal Medicine; Referring Provider Internal Medicine; Visit Provider Internal Medicine
DX: E78.5 Hyperlipidemia, unspecified (principal)
CPT/HCPCS: 36415; 80053; 85025

== ENCOUNTER → 2023-07-19 | Outpatient (CLI) | payer MEDICARE, OTHER, SELFPAY ==
[2023-07-19 13:31] LABS: Mucous, Urine 0 SEEN /hpf (<or=2+); Red Blood Cells-Urine 0 SEEN /hpf (0-5)
[2023-07-19 15:15] LABS: Color, Urine Yellow (Yellow); Glucose, Dipstick Normal (Normal); Ketone-Dipstick Negative (Negative); Leukocyte Esterase-Dipstick 100 /ul (Negative); Nitrite-Dipstick Negative (Negative); Occult Blood-Urine Negative /ul (Negative); Protein-Dipstick 15 mg/dl (Negative); Urine Bilirubin Dipstick Negative (Negative); Urine Clarity Sl. Cloudy (Clear); Urine Urobilinogen Normal (Normal)
[2023-07-19 15:28] LABS: Bacteria 1+ /hpf (None Seen); Calcium Oxalate Crystals Ur 1+ /hpf (<or=2+); Squamous Epithelial Cells - UA 0-5 SEEN /hpf (5-10); White Blood Cells 10-25 SEEN /hpf (0-5)
== END | disposition home or self-care (01) ==
LOC: LABSPEC 13:30
PROVIDERS: PCP Internal Medicine; Visit Provider Internal Medicine
DX: R10.9 Unspecified abdominal pain (principal)
CPT/HCPCS: 81001; 87086; 87088

== ENCOUNTER → 2024-01-19 | Outpatient (CLI) | payer MEDICARE, OTHER, SELFPAY ==
[2024-01-19 15:40] LABS: Absolute Lymphocyte Count 1.91 X10^3/uL (0.83-4.51); Absolute Neutrophil Count 6.4 X10^3/uL (2.0-7.7); Basophil# 0.07 X10^3/uL; Basophil% 0.8 % (0-1); Eosinophil# 0.31 X10^3/uL; Eosinophils% 3.3 % (0-5); Hematocrit 38.3 % (37-47); Hemoglobin 11.6 g/dL (12.0-15.0); Lymphocyte # 1.91 X10^3/ul (0.83-4.51); Lymphocyte % 20.5 % (19-41); Mean Corp Hgb Conc 30.3 g/dL (32-36); Mean Corpuscular Hgb 23.8 pg (27.0-32.0); Mean Corpuscular Volume 78.5 fL (81-99); Mean Platelet Vol. 9.1 fl (6.2-12.0); Monocyte# 0.59 X10^3/uL; Monocyte% 6.3 % (0-10); NRBC Flagged by Analyzer 0 % (0-5); Neutrophil # 6.42 X10^3/uL (2.7-7.7); Neutrophil % 68.8 % (47-70); Platelet Count 299 K/mm3 (150-450); RBC Distribution Width CV 15.5 % (11.6-14.6); RBC Distribution Width SD 43.7 fl (35.1-43.9); Red Blood Count 4.88 M/mm3 (4.2-5.4); White Blood Count 9.3 K/mm3 (4.4-11.0)
[2024-01-19 16:40] LABS: ALB/GLOB Ratio 1.1 RATIO (0.9-2.4); AST(SGOT) 27 U/L (15-37); Alanine Aminotransfer ALT/SGPT 27 U/L (13-56); Albumin, Serum 3.6 g/dL (3.2-5.0); Alkaline Phosphatase 58 U/L (45-117); Anion Gap 6 (5-15); BUN 18 mg/dL (7-18); BUN/Creat Ratio 21.1 RATIO (10-20); Calcium,Total 9.5 mg/dL (8.5-10.1); Chloride 105 mmol/L (98-107); Cholesterol 216 mg/dL (200); Creatinine, Serum 0.85 mg/dL (0.55-1.02); EST Glomerular Filtration Rate 68 mL/min (>60); Est Glom Filt Rate - Afr Amer 83 mL/min (>60); Globulin 3.3 g/dL (2.2-4.2); Glucose 105 mg/dL (74-106); High Density Lipoprotein 65 mg/dL; Potassium 3.7 mmol/L (3.5-5.1); Protein, Total 6.9 g/dL (6.4-8.2); Sodium Level 139 mmol/L (136-145); Triglycerides 239 mg/dL; Very Low Density Lipoprotein 48 mg/dL (5-40)
== END | disposition home or self-care (01) ==
LOC: BIMLAB 14:26
PROVIDERS: PCP Internal Medicine; Visit Provider Internal Medicine
DX: I10 Essential (primary) hypertension (principal); E78.5 Hyperlipidemia, unspecified
CPT/HCPCS: 36415; 80053; 80061; 85025

== ENCOUNTER → 2024-01-24 | Outpatient (CLI) | payer MEDICARE, OTHER, SELFPAY ==
[2024-01-24 18:05] LABS: Absolute Neutrophil Count 4.8 X10^3/uL (2.0-7.7); Basophil# 0.06 X10^3/uL; Basophil% 0.9 % (0-1); Eosinophil# 0.15 X10^3/uL; Eosinophils% 2.2 % (0-5); Hematocrit 38.1 % (37-47); Hemoglobin 11.7 g/dL (12.0-15.0); Lymphocyte % 17.9 % (19-41); Mean Corp Hgb Conc 30.7 g/dL (32-36); Mean Corpuscular Hgb 23.9 pg (27.0-32.0); Mean Corpuscular Volume 77.9 fL (81-99); Mean Platelet Vol. 9.8 fl (6.2-12.0); Monocyte# 0.43 X10^3/uL; Monocyte% 6.4 % (0-10); NRBC Flagged by Analyzer 0 % (0-5); Neutrophil # 4.82 X10^3/uL (2.7-7.7); Neutrophil % 72.2 % (47-70); Platelet Count 297 K/mm3 (150-450); RBC Distribution Width CV 15.8 % (11.6-14.6); RBC Distribution Width SD 43.8 fl (35.1-43.9); Red Blood Count 4.89 M/mm3 (4.2-5.4); White Blood Count 6.7 K/mm3 (4.4-11.0)
[2024-01-24 18:22] LABS: ALB/GLOB Ratio 1.1 RATIO (0.9-2.4); AST(SGOT) 26 U/L (15-37); Alanine Aminotransfer ALT/SGPT 28 U/L (13-56); Albumin, Serum 3.7 g/dL (3.2-5.0); Alkaline Phosphatase 54 U/L (45-117); Anion Gap 7 (5-15); BUN 19 mg/dL (7-18); BUN/Creat Ratio 22.9 RATIO (10-20); Calcium,Total 9.3 mg/dL (8.5-10.1); Chloride 107 mmol/L (98-107); Creatinine, Serum 0.83 mg/dL (0.55-1.02); EST Glomerular Filtration Rate 70 mL/min (>60); Est Glom Filt Rate - Afr Amer 85 mL/min (>60); Globulin 3.4 g/dL (2.2-4.2); Glucose 91 mg/dL (74-106); Potassium 4.2 mmol/L (3.5-5.1); Protein, Total 7.1 g/dL (6.4-8.2); Sodium Level 140 mmol/L (136-145)
== END | disposition home or self-care (01) ==
LOC: MTLAB 15:52
PROVIDERS: PCP Internal Medicine; Referring Provider Internal Medicine Rheumatology; Visit Provider Internal Medicine Rheumatology
DX: M06.4 Inflammatory polyarthropathy (principal); M35.00 Sjogren syndrome, unspecified; Z79.899 Other long term (current) drug therapy
CPT/HCPCS: 36415; 80053; 85025

== ENCOUNTER → 2024-01-28 | Outpatient (CLI) | payer MEDICARE, OTHER, SELFPAY | END | disposition home or self-care (01) | LOC: SL 19:54 | PROVIDERS: PCP Internal Medicine; Referring Provider Nurse Practitioner Acute Care; Visit Provider Nurse Practitioner Acute Care | DX: G47.33 Obstructive sleep apnea (adult) (pediatric) (principal) | CPT/HCPCS: 95810 ==

== ENCOUNTER → 2024-02-02 | Outpatient (CLI) | payer MEDICARE, OTHER, SELFPAY ==
--- NOTE | 2024-02-02 12:10 | BD_ITS ---
STUDY: DUAL ENERGY X-RAY ABSORPTIOMETRY / DXA REASON FOR EXAM: Female, 78 years old. Post Menopausal TECHNIQUE: Bone Mineral Density (BMD) measurements of lumbar spine and bilateral hips were obtained. COMPARISON: Comparison is made with prior study dated April 05, 2018. FINDINGS: Lumbar Spine (L1-L4): g/cm2 (1.023) / T-score (-0.3) / Z-score (2.4) Findings are suggestive of normal bone density with a low fracture risk. Left Femur Total: g/cm2 (0.821) / T-score (-1.0) / Z-score (1.1) Left Femoral Neck: g/cm2 (0.679) / T-score (-1.5) / Z-score (0.8) Right Femur Total: g/cm2 (0.808) / T-score (-1.1) / Z-score (0.9) Right Femoral Neck: g/cm2 (0.695) / T-score (-1.4) / Z-score (0.9) The T-Scores on the most recent prior examination were: Lumbar Spine (L1-L4): There has been worsening of bone density since the previous examination. Left Femur Total: which represents a worsening of 13.7%. Right Femur Total: which represents a worsening of 15.2%. BD/Dexa Bone Density Study IMPRESSION: The patient is considered osteopenic as outlined below according to World Wayne Organization (WHO) criteria with a low fracture risk. There has been worsening of bone density since the previous examination. Reference Information: The T-score is the number of standard deviations above or below the standard which is normal for young adults at their peak bone mineral density. The World Health Organization (WHO) interprets the T-scores as follows: Above -1 Normal bone density Between -1 and -2.5 Osteopenia Equal to / or below -2.5 Osteoporosis As a practical clinical guideline, osteopenia may be graded as follows: Mild -1 through -1.5 Moderate -1.6 through -2.0 Severe -2.1 through -2.4 The Z-score is the number of standard deviations above or below age-matched controls. A Z-score of less than -1.5 would be considered abnormal. References: 1. NIH Osteoporosis and Related Bone Diseases www osteo.org 2. International Society for Clinical Densitometry www iscd.org 3. National Osteoporosis Foundation www nof.org Electronically Signed: Renny Bell MD at 13:46 EDT ,
--- NOTE | 2024-02-02 12:10 | BI_ITS ---
MAMMOGRAPHY - BILATERAL SCREENING 3-D TOMOSYNTHESIS REASON FOR EXAM: Female, 78 years old. Breast Cancer Screening PERTINENT HISTORY: No significant family history. TECHNIQUE: 2-D mammograms and 3-D Tomosynthesis of the breast (s) were performed. CAD was performed. COMPARISON: 04/06/2019 FINDINGS: The breast composition is Extermely dense tissue. Scattered benign calcifications are seen. No dense spiculated masses or suspicious microcalcifications are identified. No architectural distortion is identified. There is no skin thickening or retraction. There has been no significant change since the prior study. BI/SCRN MAMM (CAD)W/NIR BILAT IMPRESSION: No mammographic signs of malignancy. Routine yearly mammograms recommended. ASSESSMENT CATEGORY: BIRADS Category 1: Negative. A letter regarding these results will be sent to the patient by the facility within 30 days. FOLLOW UP RECOMMENDATION: Yearly follow up mammogram recommended. (A) Approximately 10% of breast cancers are not detected by mammography. A normal mammogram should not delay biopsy of a clinically suspicious abnormality. Electronically Signed: Jerson Kidd MD at 18:59 EDT ,
== END | disposition home or self-care (01) ==
LOC: OPBD 12:07
PROVIDERS: PCP Internal Medicine; Referring Provider Internal Medicine; Visit Provider Internal Medicine
DX: Z12.31 Encounter for screening mammogram for malignant neoplasm of breast (principal); Z78.0 Asymptomatic menopausal state; Z09 Encounter for follow-up examination after completed treatment for conditions other than malignant neoplasm
CPT/HCPCS: 77063; 77067; 77080

== ENCOUNTER → 2024-04-17 | Outpatient (CLI) | payer MEDICARE, OTHER, SELFPAY ==
[2024-04-17 16:38] LABS: Absolute Lymphocyte Count 1.85 X10^3/uL (0.83-4.51); Absolute Neutrophil Count 4.1 X10^3/uL (2.0-7.7); Basophil# 0.09 X10^3/uL; Basophil% 1.3 % (0-1); Eosinophil# 0.38 X10^3/uL; Eosinophils% 5.6 % (0-5); Hematocrit 40.4 % (37-47); Hemoglobin 12.5 g/dL (12.0-15.0); Lymphocyte # 1.85 X10^3/ul (0.83-4.51); Lymphocyte % 27.2 % (19-41); Mean Corp Hgb Conc 30.9 g/dL (32-36); Mean Corpuscular Volume 80.6 fL (81-99); Mean Platelet Vol. 9.6 fl (6.2-12.0); Monocyte# 0.32 X10^3/uL; Monocyte% 4.7 % (0-10); NRBC Flagged by Analyzer 0 % (0-5); Neutrophil # 4.13 X10^3/uL (2.7-7.7); Neutrophil % 60.9 % (47-70); Platelet Count 254 K/mm3 (150-450); RBC Distribution Width CV 16.4 % (11.6-14.6); RBC Distribution Width SD 46.7 fl (35.1-43.9); Red Blood Count 5.01 M/mm3 (4.2-5.4); White Blood Count 6.8 K/mm3 (4.4-11.0)
[2024-04-17 17:09] LABS: ALB/GLOB Ratio 0.9 RATIO (0.9-2.4); AST(SGOT) 22 U/L (15-37); Alanine Aminotransfer ALT/SGPT 27 U/L (13-56); Albumin, Serum 3.5 g/dL (3.2-5.0); Alkaline Phosphatase 59 U/L (45-117); Anion Gap 8 (5-15); BUN 14 mg/dL (7-18); BUN/Creat Ratio 15.4 RATIO (10-20); Calcium,Total 9.7 mg/dL (8.5-10.1); Chloride 106 mmol/L (98-107); Creatinine, Serum 0.91 mg/dL (0.55-1.02); EST Glomerular Filtration Rate 63 mL/min (>60); Est Glom Filt Rate - Afr Amer 77 mL/min (>60); Globulin 3.7 g/dL (2.2-4.2); Glucose 145 mg/dL (74-106); Potassium 4.3 mmol/L (3.5-5.1); Protein, Total 7.2 g/dL (6.4-8.2); Sodium Level 142 mmol/L (136-145)
== END | disposition home or self-care (01) ==
LOC: BIMLAB 14:23
PROVIDERS: PCP Internal Medicine; Referring Provider Internal Medicine; Visit Provider Internal Medicine
DX: I10 Essential (primary) hypertension (principal)
CPT/HCPCS: 36415; 80053; 81001; 85025

== ENCOUNTER 2024-05-16 23:20 | Emergency (ER) | payer MEDICARE, OTHER, SELFPAY ==
[2024-05-16 23:20] VITALS: BP 142/69; PULSE 64; RESP 16; TEMP 36.6; O2SAT 99; BMI 24.0
--- NOTE | 2024-05-17 00:05 | RAD_ITS ---
EXAM: XR LUMBOSACRAL SPINE, 4 OR 5 VIEWS CLINICAL INDICATION: back pain TECHNIQUE: Frontal, lateral and bilateral oblique views of the lumbar spine. COMPARISON: No relevant prior studies available. FINDINGS: VERTEBRAE: Facet joint hypertrophy. Preserved vertebral body height. No fracture. No spondylolisthesis. Preservation of the normal lumbar lordosis. DISC SPACES: Degenerative changes of the intervertebral discs. GASTROINTESTINAL TRACT: Moderate amount of stool in the colon. Included bowel gas pattern is non-obstructive. RAD/L/S Spine Min 4 Views IMPRESSION: 1. No acute injuries identified involving the lumbar spine. 2. Degenerative changes. Electronically Signed: Davin Fallon MD at 1:24 EDT ,
[2024-05-17] MEDS: Gabapentin 300 MG Capsule PO (00:45)
[2024-05-17] MEDS: Acetaminophen 500 MG Tablet 1000 MG PO (00:45)
[2024-05-17] MEDS: diazePAM 5 MG Tablet 2.5 MG PO (00:45)
[2024-05-17 01:40] VITALS: BP 135/68; PULSE 88; RESP 16; TEMP 36.7; O2SAT 100
--- NOTE | 2024-05-17 01:42 | EX.ED.DYSGE1 ---
HPI History of Present Illness Chief Complaint: Back Informant: patient and friend Narrative Narrative: Patient is an 79-year-old female with past medical history of hypertension hyperlipidemia and GERD. She states a few days ago she carried the close hamper down the stairs which she does not normally do. She states when she did this she felt a small twinge in her back. Since that time she has been having increasing pain that is worse when she lies down or sits up or rolls over. She denies any direct trauma to the back she denies any recent surgical procedures she denies any dysuria hematuria fevers or chills. She states has been taking her home medications as well as [id number] pain medication without symptom relief and therefore comes in for evaluation [facility] Medical History (Updated 05/17/24 @ 04:[address] Johnathan Park, ) OAB (overactive bladder) Urinary frequency Health care maintenance Flank pain Chronic cough Malaise and fatigue Dysuria Fever Cough Tremor Flu vaccine need Osteoarthritis of left knee Fluttering heart Anxiety and depression Upper respiratory tract infection Hyperglycemia Nocturia Restless leg syndrome Hospital discharge follow-up Osteoarthritis of right knee Seasonal allergies Wears dentures Anxiety History of hyperlipidemia Restless legs Former smoker CPAP (continuous positive airway pressure) dependence Pre-op evaluation Bilateral primary osteoarthritis of knee Periodic limb movement disorder (PLMD) Osteoarthritis Incontinence Back pain Knee pain Shoulder pain Hemorrhoids IBS (irritable bowel syndrome) Hearing problem Gastrointestinal problem Chronic bronchitis Cataracts, bilateral Bone fracture Osteoporosis Hypertension YOUNG (obstructive sleep apnea) Anemia Hyperlipidemia Rheumatoid arthritis Snoring GERD (gastroesophageal reflux disease) Nicotine dependence in remission Anxiety associated with depression Dyspnea on exertion Obstructive sleep apnea Home Medications ?Medication ?Instructions ?Recorded ?Last Taken ?Type aspirin 81 mg tablet,delayed 81 mg PO QDAY heart 07/19/17 03/25/21 History release (Adult Aspirin Regimen) hydroxychloroquine 200 mg tablet 200 mg PO BID RA 10/03/19 04/06/21 History (Plaquenil) simvastatin 10 mg tablet 10 mg PO QHS #90 tabs 06/04/21 Unknown Rx fluticasone propionate 50 2 spray intranasal DAILY #16 grams 01/04/23 Unknown Rx mcg/actuation nasal spray,suspension amlodipine 10 mg tablet See Rx Instructions .Route 06/28/23 Unknown Rx .COMPLEX #90 tabs prednisone 10 mg tablet 10 mg PO PRN 12/06/23 Unknown History Oral Appliace #1 ea 09/15/23 Unknown Rx omeprazole 20 mg capsule,delayed 20 mg PO DAILY for acid reflux #90 12/08/23 Unknown Rx release caps sertraline 50 mg tablet See Rx Instructions .Route 04/05/24 Unknown Rx .COMPLEX #135 tabs cephalexin 500 mg capsule 500 mg PO Q12H 10 days #20 caps 05/08/24 Unknown Rx lisinopril 10 mg tablet 10 mg PO DAILY 05/16/24 Unknown History diazepam 2 mg tablet (Valium) 2 mg PO TID PRN muscle spasm 5 05/17/24 Unknown Rx days #15 tabs gabapentin 300 mg capsule 300 mg PO TID 14 days #42 caps 05/17/24 Unknown Rx Allergy/AdvReac Type Severity Reaction Status Date / Time No Known Allergies Allergy Verified 05/16/24 23:21 Family History Mother , 75 years Cancer Liver cancer and stomach Angina at rest Anxiety History of blood transfusion Diabetes Hypertension High cholesterol Liver disease Father , 60 years Heart disease MS Angina at rest High cholesterol Brother Heart disease Sister Asthma A CHILD Depression Colon cancer Multiple allergies Brother Pancreatic cancer Surgical History S/P total knee arthroplasty History of colonoscopy History of tubal ligation Hx of LASIK history of mastoids in ear History of colon surgery Social History adopted: No housing: house current occupational status: previously employed current occupational exposures/hazards: No pets and animals: Yes pets and animals: cat(s) and dog(s) Smoking Status: Former smoker quit date: 01/24/99 pack-years: 40 Tobacco: How many years used: 40 how long ago did patient quit smokin second hand exposure: No alcohol intake: never substance use type: does not use caffeine: Yes (3/day) additional social history: USES ASPIRIN ROS ROS ED Constitutional Constitutional ED: Denies chills or fever(s) ENT ENT ED: Denies sore throat Cardiovascular Cardiovascular: Denies chest pain Respiratory/Chest Respiratory/Chest: Denies cough or dyspnea Gastrointestinal Gastrointestinal: Denies abdominal pain, constipation, diarrhea, nausea or vomiting Genitourinary Genitourinary ED: Denies dysuria, hematuria or urinary frequency Musculoskeletal Musculoskeletal: Reports back pain Integumentary Denies rash Neurologic Neurologic: Denies headache(s), paresthesias or weakness Hematologic/Lymphatic Hematologic/Lymphatic: Denies easy bleeding or easy bruising EXAM Physical Exam Const Vital Signs: 05/16/24 23:20 05/17/24 01:40 Temperature 98 F 98.1 F Temperature Source Oral Pulse Rate 64 88 Respiratory Rate 16 16 Blood Pressure 142/69 H 135/68 H Blood Pressure Mean 93 90 Pulse Ox 99 100 Oxygen Delivery Method Room Air Positive well nourished and well developed General Appearance ED: well developed; Negative for pallor HEENT HEENT Narrative: Normocephalic atraumatic Eyes PERRL and EOMs intact bilaterally General Eye ED: Negative for scleral icterus Neck supple Neck Narrative: No nuchal rigidity or meningeal signs Resp normal respiratory effort and clear to auscultation bilaterally Cardio regular rate and regular rhythm Rate: other Other Details: Heart is regular rate and rhythm Radial and carotid pulses are equal and symmetric GI normal to inspection, nondistended, normoactive bowel sounds, non-tender, non-distended and no masses GI Narrative: No voluntary guarding or rigidity or pulsatile mass Auscultation: normoactive bowel sounds Palpation: soft Back/Spine Back/Spine Narrative: No bony deformity or step-off of the thoracic spine but there is midline lumbar pain with palpation There is also bilateral paralumbar tension and spasm noted that worsens with extension and rotation No saddle anesthesia. Negative straight leg raise. No clonus or Babinski. Patellar reflexes are plus 1 out of 4 bilaterally Extremity normal to inspection Neuro oriented x3, CN's II-XII intact bilaterally and no sensory deficits noted Sensorium / Orientation: alert Psych mental status grossly normal Skin no rashes or lesions noted and no wounds Skin Narrative: No overlying soft tissue changes to suggest trauma or infection General Skin Exam: Negative for jaundice or pallor MDM MDM MDM Narrative Medical decision making narrative: Patient arrived to the ER slightly hypertensive otherwise with stable vitals. She reported pain in her low back after carrying a hamper which she does not normally do. Differential diagnosis is for lumbosacral strain versus muscle spasm versus compression fracture versus spondylolisthesis. Without loss of bowel or bladder control or IV drug use I have low concern for cauda equina or epidural abscess. She denies dysuria or hematuria and this goes against UTI/pyelonephritis or kidney stone. Without any recent surgical procedures there is low concern for discitis as well. Therefore only felt need for a x-ray at this time. It revealed degenerative changes consistent with her age but no signs of acute fracture. After being treated with Valium Tylenol and gabapentin patient reported resolution of her pain. Therefore this time his history and exam indicate this is most likely muscle spasm and lumbosacral strain should be given symptomatic care and is otherwise safe for discharge History & Record Review Discussion w/independent historian: Patient and Friend Radiography Diagnostic Testing: Clinical Impression(s) from Imaging Studies Lumbar Spine X-Ray 05/17/24 00:05 IMPRESSION: 1. No acute injuries identified involving the lumbar spine. 2. Degenerative changes. Electronically Signed: Davin Fallon MD at 1:24 EDT , X-ray of the lumbosacral spine as interpreted by the emergency medicine physician reveals degenerative changes without acute fracture or spondylolisthesis Discharge Plan Triage Chief Complaint: Back ED Provider: Johnathan Park Dx/Rx/DC Orders Clinical Impression: Acute myofascial strain of lumbosacral region, Muscle spasm of back, Hypertension, Hyperlipidemia, GERD (gastroesophageal reflux disease) Instructions: Understanding Lumbosacral Strain, ED Back Spasm, No Trauma Prescriptions: New gabapentin 300 mg capsule 300 mg PO TID 14 Days Qty: 42 0RF diazepam [Valium] 2 mg tablet 2 mg PO TID PRN (Reason: muscle spasm) 5 Days Qty: 15 0RF No Action aspirin [Adult Aspirin Regimen] 81 mg tablet,delayed release (DR/EC) 81 mg PO QDAY hydroxychloroquine [Plaquenil] 200 mg tablet 200 mg PO BID simvastatin 10 mg tablet 10 mg PO QHS Qty: 90 2RF fluticasone propionate 50 mcg/actuation spray,suspension 2 spray intranasal DAILY Qty: 16 3RF prednisone 10 mg tablet 10 mg PO PRN Rx Instructions: 1-3 times daily prn for flare up (DME) Oral Appliace See Rx Instructions .ROUTE .MEDSUPPLY Qty: 1 0RF Rx Instructions: As directed cephalexin 500 mg capsule 500 mg PO Q12H 10 Days Qty: 20 0RF lisinopril 10 mg tablet 10 mg PO DAILY Rx Instructions: Take this medication at bedtime amlodipine 10 mg tablet See Rx Instructions .ROUTE .COMPLEX Qty: 90 3RF Dose Instruction: TAKE 1 TABLET DAILY FOR BLOOD PRESSURE Rx Instructions: TAKE 1 TABLET DAILY FOR BLOOD PRESSURE omeprazole 20 mg capsule,delayed release(DR/EC) 20 mg PO DAILY Qty: 90 3RF sertraline 50 mg tablet See Rx Instructions .ROUTE .COMPLEX Qty: 135 3RF Dose Instruction: TAKE ONE AND ONE-HALF TABLETS (75 MG) DAILY FOR MOOD Rx Instructions: TAKE ONE AND ONE-HALF TABLETS (75 MG) DAILY FOR MOOD Primary Care Provider: Berta Sofia Referrals: Berta Sofia MD [Primary Care Provider] - Activity Restrictions/Additional Instructions: Please continue to stretch and heat your low back to reduce pain and speed healing. Take the prescribed medications as directed to help control symptoms and you may continue with Tylenol and/or Motrin as needed for pain control with the prescribed medications as well. Return to the ER should you have any further concerns Print Language: Singaporean Disposition Disposition: Home, Self Care Discharge Date/Time: 05/17/24 01:40
== END 2024-05-17 01:40 | disposition home or self-care (01) ==
PROVIDERS: Emergency Provider Emergency Medicine; PCP Internal Medicine; Visit Provider Emergency Medicine
DX: S39.012A Strain of muscle, fascia and tendon of lower back, initial encounter (principal); M62.830 Muscle spasm of back; K21.9 Gastro-esophageal reflux disease without esophagitis; E78.5 Hyperlipidemia, unspecified; I10 Essential (primary) hypertension; Z79.899 Other long term (current) drug therapy; Z79.82 Long term (current) use of aspirin; Z87.891 Personal history of nicotine dependence; X58.XXXA Exposure to other specified factors, initial encounter
CPT/HCPCS: 72110; 99283

== ENCOUNTER → 2024-08-01 | Outpatient (CLI) | payer MEDICARE, OTHER, SELFPAY ==
[2024-08-01 13:25] LABS: Absolute Lymphocyte Count 1.75 X10^3/uL (0.83-4.51); Absolute Neutrophil Count 2.7 X10^3/uL (2.0-7.7); Basophil# 0.07 X10^3/uL; Basophil% 1.3 % (0-1); Eosinophil# 0.26 X10^3/uL; Hematocrit 40.8 % (37-47); Hemoglobin 13.4 g/dL (12.0-15.0); Lymphocyte # 1.75 X10^3/ul (0.83-4.51); Lymphocyte % 33.6 % (19-41); Mean Corp Hgb Conc 32.8 g/dL (32-36); Mean Corpuscular Hgb 26.5 pg (27.0-32.0); Mean Corpuscular Volume 80.8 fL (81-99); Mean Platelet Vol. 8.7 fl (6.2-12.0); Monocyte# 0.39 X10^3/uL; Monocyte% 7.5 % (0-10); NRBC Flagged by Analyzer 0 % (0-5); Neutrophil # 2.73 X10^3/uL (2.7-7.7); Neutrophil % 52.4 % (47-70); Platelet Count 228 K/mm3 (150-450); RBC Distribution Width CV 14.6 % (11.6-14.6); RBC Distribution Width SD 42.3 fl (35.1-43.9); Red Blood Count 5.05 M/mm3 (4.2-5.4); White Blood Count 5.2 K/mm3 (4.4-11.0)
[2024-08-01 13:56] LABS: AST(SGOT) 23 U/L (15-37); Alanine Aminotransfer ALT/SGPT 21 U/L (13-56); Albumin, Serum 3.5 g/dL (3.2-5.0); Alkaline Phosphatase 62 U/L (45-117); Anion Gap 6 (5-15); BUN 10 mg/dL (7-18); BUN/Creat Ratio 10.8 RATIO (10-20); Chloride 107 mmol/L (98-107); Creatinine, Serum 0.93 mg/dL (0.55-1.02); EST Glomerular Filtration Rate 62 mL/min (>60); Est Glom Filt Rate - Afr Amer 75 mL/min (>60); Globulin 3.5 g/dL (2.2-4.2); Glucose 114 mg/dL (74-106); Potassium 3.7 mmol/L (3.5-5.1); Sodium Level 140 mmol/L (136-145)
== END | disposition home or self-care (01) ==
LOC: LAB 12:59
PROVIDERS: PCP Internal Medicine; Referring Provider Internal Medicine Rheumatology; Visit Provider Internal Medicine Rheumatology
DX: M06.4 Inflammatory polyarthropathy (principal); M35.00 Sjogren syndrome, unspecified; Z79.899 Other long term (current) drug therapy
CPT/HCPCS: 36415; 80053; 85025

== ENCOUNTER → 2024-11-09 | Outpatient (CLI) | payer MEDICARE, SELFPAY ==
--- NOTE | 2024-11-09 14:38 | RAD_ITS ---
EXAM: XR Left Foot Complete, 3 or More Views CLINICAL INDICATION: LEFT FOOT PAIN TECHNIQUE: Frontal, lateral and oblique views of the left foot. COMPARISON: No relevant prior studies available. FINDINGS: BONES/JOINTS: Small bony fragment in the anterior talus, best visualized in the lateral view could be avulsion fracture. Soft tissue swelling. No dislocation. SOFT TISSUES: See above. RAD/Foot min 3 Views IMPRESSION: Small bony fragment in the anterior talus, best visualized in the lateral view could be avulsion fracture. Soft tissue swelling. [facility]
== END | disposition home or self-care (01) ==
LOC: MTRAD 14:34
PROVIDERS: PCP Internal Medicine; Referring Provider Physician Assistant Surgical; Visit Provider Physician Assistant Surgical
DX: S99.922A Unspecified injury of left foot, initial encounter (principal)
CPT/HCPCS: 73630

== ENCOUNTER → 2025-01-30 | Outpatient (CLI) | payer MEDICARE, OTHER, SELFPAY ==
[2025-01-30 18:21] LABS: AST(SGOT) 26 U/L (<=31); Alanine Aminotransfer ALT/SGPT 16 U/L (<=34); Albumin, Serum 4.3 g/dL (3.4-4.8); Alkaline Phosphatase 62 U/L (35-104); Anion Gap 12 (5-15); BUN 17 mg/dL (4-19); BUN/Creat Ratio 19.0 RATIO (10-20); Calcium,Total 9.9 mg/dL (7.6-11.0); Carbon Dioxide 26.0 mmol/L (21.0-32.0); Chloride 104 mmol/L (98-108); Globulin 2.6 g/dL (2.2-4.2); Glucose 98 mg/dL (70-99); Potassium 4.5 mmol/L (3.3-5.1)
[2025-01-30 18:29] LABS: Hematocrit 43.4 % (37-47); Hemoglobin 14.5 g/dL (12.0-15.0); Immature Granulocytes Count 0.020 X10^3/uL (0.0-0.0); Mean Corp Hgb Conc 33.4 g/dL (32-36); Mean Corpuscular Volume 82.0 fL (81-99); Mean Platelet Vol. 9.3 fl (6.2-12.0); NRBC Flagged by Analyzer 0 % (0-5); Platelet Count 249 K/mm3 (150-450); RBC Distribution Width CV 14.2 % (11.6-14.6); RBC Distribution Width SD 41.8 fl (35.1-43.9); Red Blood Count 5.29 M/mm3 (4.2-5.4); White Blood Count 6.8 K/mm3 (4.4-11.0)
== END | disposition home or self-care (01) ==
LOC: MTLAB 15:29
PROVIDERS: PCP Internal Medicine; Referring Provider Internal Medicine Rheumatology; Visit Provider Internal Medicine Rheumatology
DX: M06.4 Inflammatory polyarthropathy (principal); M35.00 Sjogren syndrome, unspecified; M65.321 Trigger finger, right index finger; Z79.899 Other long term (current) drug therapy
CPT/HCPCS: 36415; 80053; 85025

== ENCOUNTER → 2025-03-13 | Outpatient (CLI) | payer MEDICARE, OTHER, SELFPAY | END | disposition home or self-care (01) | LOC: LAB 13:51 | PROVIDERS: PCP Internal Medicine | DX: Z00.00 Encounter for general adult medical examination without abnormal findings (principal) ==

== ENCOUNTER → 2025-03-19 | Outpatient (CLI) | payer MEDICARE, OTHER, SELFPAY ==
[2025-03-22 08:09] LABS: Calprotectin, Stool 640 ug/g (0-120); Pancreatic Elastase, Fecal 725 (>200)
== END | disposition home or self-care (01) ==
LOC: MTLAB 15:24
PROVIDERS: PCP Internal Medicine
DX: R15.9 Full incontinence of feces (principal)
CPT/HCPCS: 82274; 82653; 83993

== ENCOUNTER 2025-05-01 11:19 | Day surgery (SDC) | payer OTHER, MEDICARE, SELFPAY ==
--- NOTE | 2025-04-26 14:52 | PAT.ANE_ITS ---
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 When Was Last Pacemaker Check QUESTION #4 FULL TEXT: You/Your Family Experience fever (hyperthermia) with Anesthesia Last Oral Intake Last Oral intake: Last Oral Intake NPO since Meds taken in AM with sips of water? 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 Female Yes 04/26/25 14:42 HX of Motion Sickness No 04/26/25 14:42 HX of N/V After Surgery No 04/26/25 14:42 Non-Smoker Yes 04/26/25 14:42 Duration of Surgery greater No 04/26/25 14:42 than 60 minutes Number of Risk Factors 2 04/26/25 14:42 PONV Score Moderate Risk 04/26/25 14:42 Height & Weight Height & Weight: Anesthesia: Height & Weight Height 5 ft 4 in 02/22/25 16:19 Respiratory Assessment Respiratory Assessment - private branch exchange installer: Respiratory Tract Infection Hx - private branch exchange installer Hx Respiratory Tract Infection No 04/26/25 14:42 STOP Sleep Apnea STOP Sleep Apnea - private branch exchange installer: STOP Sleep Apnea - private branch exchange installer Hx Hypertension Yes: ON MEDS 04/26/25 14:42 Hx Sleep Apnea Yes 04/26/25 14:42 CPAP Yes 04/26/25 14:42 BIPAP No 04/26/25 14:42 Do you snore loudly (louder than talking or can be heard Do you often feel tired/ fatigued/ sleepy during daytime? Has anyone observed you stop breathing during sleep? STOP Results Positive 04/26/25 14:42 QUESTION #5 FULL TEXT : Do you snore loudly (louder than talking or can be heard through closed doors)? 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 Specify any problems Hx of Preganancy in last 3 No 04/26/25 14:42 Months Nurse Filling Out Transfusion JZOLLINGE 04/26/25 14:42 & Questions: Date: 04/26/25 04/26/25 14:42 Time: 14:44 04/26/25 14:42 Patient unable to answer at this time (ie. confused, unrespo /Reproduction History /Reproductive History - private branch exchange installer: /Reproductive Hx- private branch exchange installer Hx Now No 04/26/25 14:42 Gestational Age (in weeks): EDC: Hx Hx Para Hx Section SAB No 04/26/25 14:42 PFSH Medical History (Updated 04/26/25 @ 14:42 by Lilli Pierce) Wears hearing aid Fecal incontinence Dermatitis OAB (overactive bladder) Urinary frequency Health care maintenance Flank pain Chronic cough Malaise and fatigue Dysuria Fever Cough Tremor Flu vaccine need Osteoarthritis of left knee Fluttering heart Anxiety and depression Upper respiratory tract infection Hyperglycemia Nocturia Restless leg syndrome Hospital discharge follow-up Osteoarthritis of right knee Seasonal allergies Wears dentures Anxiety History of hyperlipidemia Restless legs Former smoker CPAP (continuous positive airway pressure) dependence Pre-op evaluation Bilateral primary osteoarthritis of knee Periodic limb movement disorder (PLMD) Osteoarthritis Incontinence Back pain Knee pain Shoulder pain Hemorrhoids IBS (irritable bowel syndrome) Hearing problem Gastrointestinal problem Chronic bronchitis Cataracts, bilateral Bone fracture Osteoporosis Hypertension YOUNG (obstructive sleep apnea) Anemia Hyperlipidemia Rheumatoid arthritis Snoring GERD (gastroesophageal reflux disease) Nicotine dependence in remission Anxiety associated with depression Dyspnea on exertion Obstructive sleep apnea Home Medications ?Medication ?Instructions ?Recorded ?Last Taken ?Type aspirin 81 mg tablet,delayed 81 mg PO QDAY heart 07/1903/25/21 History release (Adult Aspirin Regimen) hydroxychloroquine 200 mg tablet 200 mg PO BID RA 10/1904/06/21 History (Plaquenil) simvastatin 10 mg tablet 10 mg PO QHS #90 tabs Unknown Rx prednisone 10 mg tablet 10 mg PO PRN 07/07/23 Unknow n History Oral Appliace #1 ea 09/15/23 Unknown Rx sertraline 50 mg tablet See Rx Instructions .Route 0 04/05/24 Unknown Rx .COMPLEX #135 tabs amlodipine 10 mg tablet See Rx Instructions .Route 1 08/20/23 Unknown Rx .COMPLEX #90 tabs omeprazole 20 mg capsule,delayed 20 mg PO DAILY for ac id reflux #90 12/04/24 Unknown Rx release caps Allergy/AdvReac Type Severity Reaction Status Date / Time No Known Allergies Allergy Verified 04/26/25 14:28 Family History Mother , 75 years Cancer Liver cancer and stomach Angina at rest Anxiety History of blood transfusion Diabetes Hypertension High cholesterol Liver disease Father , 60 years Heart disease [place] Angina at rest High cholesterol Brother Heart disease Sister Asthma A CHILD Depression Colon cancer Multiple allergies Brother Pancreatic cancer Surgical History S/P total knee arthroplasty History of colonoscopy History of tubal ligation Hx of LASIK history of mastoids in ear History of colon surgery Social History adopted: No housing: house current occupational status: previously employed current occupational exposures/hazards: No pets and animals: Yes pets and animals: cat(s) and dog(s) Smoking Status: Former smoker quit date: 01/24/99 pack-years: 40 Tobacco: How many years used: 40 how long ago did patient quit smokin second hand exposure: No alcohol intake: never substance use type: does not use caffeine: Yes (3/day) additional social history: USES ASPIRIN Audit: Pertinent Findings Pertinent Findings EKG Perinent findings: 03/25/2022. Normal sinus rhythm. Additional pertinent findings: 04/10/2022. Base rhythm was normal sinus. Total of 685 PSVE's comprising 0.4% of the total QRS complexes. No atrial fibrillation. No symptoms were noted in the diary. Recommendation Anesthesia Recommendation Anesthesia recommendation: OPTIMIZED for anesthesia
[2025-05-01] VITALS (8 sets, daily range): BP systolic 95–141; BP diastolic 56–89; PULSE 55–63; RESP 12–18; TEMP 36.1–37; O2SAT 94–97; BMI 22.3
[2025-05-01] MEDS: Lactated Ringers 1,000 ML 15 ML IV (11:56)
--- NOTE | 2025-05-01 12:25 | HP.PCM_ITS ---
[facility] - General General Date of Admission: 05/01/25 Date of Service: 05/01/25 Chief Complaint: screening colonoscopy HPI Narrative BRANDI SWEENEY, is a 79 F who presents a regarding screening for colon cancer and occasional diarrhea with urgency and fecal incontinence. She states that her last colonoscopy was at least 25 years ago with here at [facility], found cancerous somethings that were removed surgically. She does not remember if they were polyps or if she had a pamela-colectomy. She does not remember if she had a major bowel surgery. She reports episodes of bowel incontinence and speaks of them as if they are frequent, but when asked for specifics she states that she's had 2 partial stool incontinence episodes in the last 8 months. She states that they both followed large meals from a restaurant. She reports that she will get sharp grabbing pains to her lower abdomen which is then relieved by a BM of loose watery stools. She states that both her mother and sister have colitis of some sort. She denies difficulty swallowing, cough, throat clearing, heartburn, reflux, nausea, emesis, bloating, hematochezia, and melena. She states that she would like to have 1 more colonoscopy to verify that her cancer stayed gone. ] [facility] Medical History Wears hearing aid Fecal incontinence Dermatitis OAB (overactive bladder) Urinary frequency Health care maintenance Flank pain Chronic cough Malaise and fatigue Dysuria Fever Cough Tremor Flu vaccine need Osteoarthritis of left knee Fluttering heart Anxiety and depression Upper respiratory tract infection Hyperglycemia Nocturia Restless leg syndrome Hospital discharge follow-up Osteoarthritis of right knee Seasonal allergies Wears dentures Anxiety History of hyperlipidemia Restless legs Former smoker CPAP (continuous positive airway pressure) dependence Pre-op evaluation Bilateral primary osteoarthritis of knee Periodic limb movement disorder (PLMD) Osteoarthritis Incontinence Back pain Knee pain Shoulder pain Hemorrhoids IBS (irritable bowel syndrome) Hearing problem Gastrointestinal problem Chronic bronchitis Cataracts, bilateral Bone fracture Osteoporosis Hypertension YOUNG (obstructive sleep apnea) Anemia Hyperlipidemia Rheumatoid arthritis Snoring GERD (gastroesophageal reflux disease) Nicotine dependence in remission Anxiety associated with depression Dyspnea on exertion Obstructive sleep apnea Home Medications ?Medication ?Instructions ?Recorded ?Last Taken ?Type aspirin 81 mg tablet,delayed 81 mg PO QDAY heart 07/1904/24/25 History release (Adult Aspirin Regimen) hydroxychloroquine 200 mg tablet 200 mg PO BID RA 10/1904/06/21 History (Plaquenil) prednisone 10 mg tablet 10 mg PO PRN 07/07/23 Unknow n History Oral Appliace #1 ea 09/15/23 Unknown Rx sertraline 50 mg tablet See Rx Instructions .Route 0 04/05/24 Unknown Rx .COMPLEX #135 tabs amlodipine 10 mg tablet See Rx Instructions .Route 1 08/20/23 04/30/25 Rx .COMPLEX #90 tabs omeprazole 20 mg capsule,delayed 20 mg PO DAILY for ac id reflux #90 04/30/25 Unknown Rx release caps simvastatin 10 mg tablet 10 mg PO QHS #90 tabs Unknown Rx Allergy/AdvReac Type Severity Reaction Status Date / Time No Known Allergies Allergy Verified 05/01/25 11:46 Family History Mother , 75 years Cancer Liver cancer and stomach Angina at rest Anxiety History of blood transfusion Diabetes Hypertension High cholesterol Liver disease Father , 60 years Heart disease AK Angina at rest High cholesterol Brother Heart disease Sister Asthma A CHILD Depression Colon cancer Multiple allergies Brother Pancreatic cancer Surgical History S/P total knee arthroplasty History of colonoscopy History of tubal ligation Hx of LASIK history of mastoids in ear History of colon surgery Social History adopted: No housing: house current occupational status: previously employed current occupational exposures/hazards: No pets and animals: Yes pets and animals: cat(s) and dog(s) Smoking Status: Former smoker quit date: 01/24/99 pack-years: 40 Tobacco: How many years used: 40 how long ago did patient quit smokin second hand exposure: No alcohol intake: never substance use type: does not use caffeine: Yes (3/day) additional social history: USES ASPIRIN ROS Constitutional Constitutional: Denies fatigue, fever(s), poor appetite, weight gain or weight loss Gastrointestinal Gastrointestinal: Denies belching, bloating, change in bowel habits, change in stool character, chewing difficulty, coffee ground emesis, constipation, cramping, diarrhea, dyspepsia, dysphagia, early satiety, excessive flatus, fecal incontinence, heartburn, hematemesis, hematochezia, hemorrhoids, loose stools, melena, nausea, odynophagia, rectal bleeding, tenesmus, vomiting or weight c hanges Vital Signs Vital Signs Vital Signs: 05/01/25 11:48 05/01/25 11:48 Temperature 98.6 F Temperature Source Temporal Pulse Rate 63 Respiratory Rate 16 Respiratory Pattern Normal Blood Pressure 141/89 H Blood Pressure Mean 106 Blood Pressure Source Monitor Blood Pressure Position Sitting Blood Pressure Location Right Arm Pulse Ox 97 Oxygen Delivery Method Room Air Weight Weight: 130 lb Body Mass Index (BMI) 22.3 Physical Exam Const alert, oriented x3, no apparent distress and healthy appearing General Appearance: cooperative GI normal to inspection, nondistended, normoactive bowel sounds, soft to palpation, non-tender and non-distended Percussion: normal to percussion Rectal Exam: deferred Assessment & Plan Assessment/Plan (1) Encounter for screening colonoscopy: PLAN: Assessment and Plan Assessment and Plan (1) Fecal incontinence: Status: Chronic Qualifiers: Fecal incontinence type: unspecified Qualified Code(s): R15.9 - Full incontinence of feces (2) Encounter for screening colonoscopy: Status: Acute Orders: Orders Calprotectin, Stool Today R15.9 - Full incontinence of feces Pancreatic Elastase, Fecal Today R15.9 - Full incontinence of feces Stool Occult Blood iFOB Today R15.9 - Full incontinence of feces Plan BRANDI SWEENEY, is a 79 F who presents to the office today for establishment with [facility] regarding screening for colon cancer and occasional diarrhea with urgency and fecal incontinence. Discussed care plan with her. She is agreeable to having a colonoscopy. * low FODMAP diet x3wks, then slowly re-introduce foods one at a time * stool for OB, elastase, calprotectin * schedule colonoscopy * office FU 2wks after colonoscopy
--- NOTE | 2025-05-01 12:30 | COLBX_PTH ---
PATIENT: BRANDI SWEENEY LOC: EN U#:[id number] AGE/SX: 79/F ROOM: RE05/01/[address]: Dr. Mendez Cherry DO : 1945 BED: DIS: 05/01/2025 SPEC #: [id number] RECD: 05/01/25 15:21 STATUS: MARCELO REQ #: [id number] AMMY: 05/01/25 12:[address]: Mendez Cherry DEPT: SURGICAL PATHOLOGY RECD BY: Sam Green ENTERED: 05/02/25 14:56 SP TYPE: COLON BX OT DR: Dr. Berta Sofia MD Tissues: A - Sigmoid colon biopsy Procedures: Surgery Specimen Level IV HEADER OPERATION: Colonoscopy with biopsy PRE-OP DIAGNOSIS: Encounter for screening colonoscopy TISSUE SUBMITTED: A- Sigmoid polyp biopsy x2 MICROSCOPIC DIAGNOSIS A. Sigmoid colon, polyp x2, biopsy: * Tubular adenoma. * Inflammatory polyp. MICROSCOPIC DESCRIPTION Slides are reviewed. GROSS DESCRIPTION A. Received in fixative is one container labeled with the patient's name and designated Sigmoid polyp biopsy x2. The specimen consists of two irregular fragments of hale tissue that measure 0.4 and 0.5 cm. The specimen is totally submitted in one cassette. [place] 05/02/2025 CPT:23782
--- NOTE | 2025-05-01 12:31 | PRE.ANES_ITS ---
ASA Classification* ASA Classification ASA Classification: 3 Assessment & Plan Anesthesia* Anesthesia Assessment Anesthesia Assessment: Discussed sedation and/or anesthesia options, risks, benefits, and alternatives with patient/parents/legal guardian/POA. Questions invited. The patient/parents/legal guardian/POA seems to understand and agrees to proceed with anesthesia plan. Reviewed the physical assessment, medical history, allergy history and patient home medications list prior to surgery/procedure/anesthetic and documented any changes. Performed airway and anesthesia risk assessments. Anesthesia Type Anesthesia Type: MAC History Source History Obtained from:: Patient and Chart Anesthesia Focused Assessment* Temperature: 98.6 F Pulse Rate: 63 Blood Pressure: 141/89 Respiratory Rate: 16 Pulse Ox: 97 Oxygen Delivery Method: Room Air Airway Assessment Mouth opens: >3 cm Mallampati Score: IV Teeth Condition: Dentures (Patient has top full dentures.) and Missing (Patient is missing several teeth on the bottom. Rest are tight.) Neck Range of motion (ROM): Full ROM Labs Anesthesia Preop lab: CBC WBC, (4.4-11.0) 6.8 K/mm3 01/30/25, 15:33 RBC, (4.2-5.4) 5.29 M/mm3 01/30/25, 15:33 Hgb, (12.0-15.0) 14.5 g/dL 01/30/25, 15: Hct, (37-47) 43.4 % 01/30/25, 15:33 Plt Count, (150-450) 249 K/mm3 01/30/25, 15:33 CHEMISTRY Potassium, (3.3-5.1) 4.5 mmol/L 01/30/25, 15:33 Sodium, (133-145) 142 mmol/L 01/30/25, 15:33 Magnesium, (1.6-2.6) 2.0 mg/dL 03/24/21, 14:13 BUN, (4-19) 17 mg/dL 01/30/25, 15:33 Creatinine, (0.70-1.20) 0.89 mg/dL 01/30/25, 15:33 Glucose, (70-99) 98 mg/dL 01/30/25, 15:33 POC Glucose, (70-110) 75 mg/dL 04/08/21, 08:12 TSH, (0.358-3.74) 1.30 uIU/mL 09/01/22, 10:57 COAG PT, (11.7-14.9) 13.2 SECONDS 03/24/21, 14:15 Pre-Assessment Diagnosis/Proposed Procedure Planned Operative Procedure(s): COLONOSCOPY Anesthesia History Anesthesia History - boil off worker: Anesthesia History - boil off worker Hx Hospitalization No 04/26/25 14:42 Any Problems With Anesthesia No 04/26/25 14:42 Cholinesterase deficiency No 04/26/25 14:42 You/Your Family Experience No 04/26/25 14:42 fever (hyperthermia) with Relationship Recent Exposure to Contagious No 05/01/25 11:48 Disease Does patient have nerve No 04/26/25 14:42 stimulator Patient instructed to have device shut off --Does patient have Pacemaker No 05/01/25 11:48 or ICD? When Was Last Pacemaker Check QUESTION #4 FULL TEXT: You/Your Family Experience fever (hyperthermia) with Anesthesia Last Oral Intake Last Oral intake: Last Oral Intake NPO since 08:00 05/01/25 11:48 Meds taken in AM with sips of water? Meds patient instructed to take am of surgery Any additional information?: Yes NPO since: 08:00 (Patient finished prep at 8 AM.) Meds taken in AM with sips of water?: No PONV PONV - boil off worker: PONV - boil off worker Female Yes 04/26/25 14:42 HX of Motion Sickness No 04/26/25 14:42 HX of N/V After Surgery No 04/26/25 14:42 Non-Smoker Yes 04/26/25 14:42 Duration of Surgery greater No 04/26/25 14:42 than 60 minutes Number of Risk Factors 2 04/26/25 14:42 PONV Score Moderate Risk 04/26/25 14:42 Height & Weight Height & Weight: Anesthesia: Height & Weight Height 5 ft 4 in 05/01/25 11:48 Weight: 58.967 kg 05/01/25 11:48 Body Mass Index (BMI) 22.3 05/01/25 11:48 Respiratory Assessment Respiratory Assessment - boil off worker: Respiratory Tract Infection Hx - boil off worker Hx Respiratory Tract Infection No 04/26/25 14:42 STOP Sleep Apnea STOP Sleep Apnea - boil off worker: STOP Sleep Apnea - boil off worker Hx Hypertension Yes: ON MEDS 04/26/25 14:42 Hx Sleep Apnea Yes 04/26/25 14:42 CPAP Yes 04/26/25 14:42 BIPAP No 04/26/25 14:42 Do you snore loudly (louder than talking or can be heard Do you often feel tired/ fatigued/ sleepy during daytime? Has anyone observed you stop breathing during sleep? STOP Results Positive 04/26/25 14:42 QUESTION #5 FULL TEXT : Do you snore loudly (louder than talking or can be heard through closed doors)? 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 Specify any problems Hx of Preganancy in last 3 No 04/26/25 14:42 Months Nurse Filling Out Transfusion ROSSANA 04/26/25 14:42 & Questions: Date: 04/26/25 04/26/25 14:42 Time: 14:44 04/26/25 14:42 Patient unable to answer at this time (ie. confused, unrespo /Reproduction History /Reproductive History - boil off worker: /Reproductive Hx- boil off worker Hx Now No 04/26/25 14:42 Gestational Age (in weeks): EDC: Hx Hx Para Hx Section SAB No 04/26/25 14:42 Active Medications Active Medications: Current Medications Generic Name Dose Route Start Last Admin Trade Name Freq PRN Reason Stop Dose Admin Lactated Ringer's 1,000 mls @ 15 mls/hr 05/01/25 11:45 05/01/25 11:56 IV 15 mls/hr .Q48H JACK Administration PFSH Medical History Wears hearing aid Fecal incontinence Dermatitis OAB (overactive bladder) Urinary frequency Health care maintenance Flank pain Chronic cough Malaise and fatigue Dysuria Fever Cough Tremor Flu vaccine need Osteoarthritis of left knee Fluttering heart Anxiety and depression Upper respiratory tract infection Hyperglycemia Nocturia Restless leg syndrome Hospital discharge follow-up Osteoarthritis of right knee Seasonal allergies Wears dentures Anxiety History of hyperlipidemia Restless legs Former smoker CPAP (continuous positive airway pressure) dependence Pre-op evaluation Bilateral primary osteoarthritis of knee Periodic limb movement disorder (PLMD) Osteoarthritis Incontinence Back pain Knee pain Shoulder pain Hemorrhoids IBS (irritable bowel syndrome) Hearing problem Gastrointestinal problem Chronic bronchitis Cataracts, bilateral Bone fracture Osteoporosis Hypertension YOUNG (obstructive sleep apnea) Anemia Hyperlipidemia Rheumatoid arthritis Snoring GERD (gastroesophageal reflux disease) Nicotine dependence in remission Anxiety associated with depression Dyspnea on exertion Obstructive sleep apnea Home Medications ?Medication ?Instructions ?Recorded ?Last Taken ?Type aspirin 81 mg tablet,delayed 81 mg PO QDAY heart 07/1904/24/25 History release (Adult Aspirin Regimen) hydroxychloroquine 200 mg tablet 200 mg PO BID RA 10/1904/06/21 History (Plaquenil) prednisone 10 mg tablet 10 mg PO PRN 07/07/23 Unknow n History Oral Appliace #1 ea 09/15/23 Unknown Rx sertraline 50 mg tablet See Rx Instructions .Route 0 04/05/24 Unknown Rx .COMPLEX #135 tabs amlodipine 10 mg tablet See Rx Instructions .Route 1 08/20/23 04/30/25 Rx .COMPLEX #90 tabs omeprazole 20 mg capsule,delayed 20 mg PO DAILY for ac id reflux #90 04/30/25 Unknown Rx release caps simvastatin 10 mg tablet 10 mg PO QHS #90 tabs Unknown Rx Allergy/AdvReac Type Severity Reaction Status Date / Time No Known Allergies Allergy Verified 05/01/25 11:46 Family History Mother , 75 years Cancer Liver cancer and stomach Angina at rest Anxiety History of blood transfusion Diabetes Hypertension High cholesterol Liver disease Father , 60 years Heart disease MD Angina at rest High cholesterol Brother Heart disease Sister Asthma A CHILD Depression Colon cancer Multiple allergies Brother Pancreatic cancer Surgical History S/P total knee arthroplasty History of colonoscopy History of tubal ligation Hx of LASIK history of mastoids in ear History of colon surgery Social History adopted: No housing: house current occupational status: previously employed current occupational exposures/hazards: No pets and animals: Yes pets and animals: cat(s) and dog(s) Smoking Status: Former smoker quit date: 01/24/99 pack-years: 40 Tobacco: How many years used: 40 how long ago did patient quit smokin second hand exposure: No alcohol intake: never substance use type: does not use caffeine: Yes (3/day) additional social history: USES ASPIRIN Review of Systems (Anesthesia) ROS Narrative System reviewed and no additional complaints, except as documented.
--- NOTE | 2025-05-01 13:10 | PCM.POST.ANE ---
Anesthesia: Postop Eval I Current Vital Signs Temperature: 97 F Pulse Rate: 60 Blood Pressure: 100/56 Respiratory Rate: 16 Pulse Ox: 95 Oxygen Delivery Method: Room Air Assessment Airway patent: Yes Spontaneous unlabored respirations: Yes Mental status: Asleep nausea: No Vomiting: No Anesthesia Complication: No Fluid Hydration Crystalloid volume administer (ml): 400 Total IV fluid infused: 400 Progress Note Anesthesia document: Postop Eval 1 completed: Yes
--- NOTE | 2025-05-01 13:11 | OP.PROVAT_ITS ---
05/01/2025 Berta Sofia MD [address] [place] [address] [place] [address] Re : Colonoscopy procedure for Marinaadalgisa Goyalaro Dear Dr. Sofia This procedure was performed on Thursday, May 01, 2025. My impressions and recommendations are as follows: Impressions : - Diverticulosis in the rectum, in the recto-sigmoid colon, in the sigmoid colon and in the descending colon. - Two 6 mm polyps at the recto-sigmoid colon, removed with a cold biopsy forceps. Resected and retrieved. - Non-bleeding internal hemorrhoids. Recommendations : - Repeat colonoscopy. - Continue present medications. My findings are described in the full procedure note, which is enclosed. If I can be of further assistance, please feel free to contact me at . Sincerely, Mendez Cherry, 05/01/2025 1:10:59 PM This report has been signed electronically.
--- NOTE | 2025-05-01 13:11 | OP.COLON_ITS ---
Patient Name: Marina Ruano Procedure Date: 05/01/2025 12:35 PM Date of : 1945 Age: 79 Procedure: Colonoscopy Indications: Screening for colorectal malignant neoplasm Providers: Mendez Cherry DO Referring MD: Berta Sofia MD Medicines: Monitored Anesthesia Care Patient Profile: This is an 79 year old female. Refer to note in patient chart for documentation of history and physical. Last Colonoscopy: several years ago. Complications: No immediate complications. Procedure: Pre-Anesthesia Assessment: - Prior to the procedure, a History and Physical was performed, and patient medications and allergies were reviewed. The patient is competent. The risks and benefits of the procedure and the sedation options and risks were discussed with the patient. All questions were answered and informed consent was obtained. Patient identification and proposed procedure were verified by the physician in the pre-procedure area. Mental Status Examination: alert and oriented. Airway Examination: normal oropharyngeal airway and neck mobility. Respiratory Examination: clear to auscultation. CV Examination: normal. Prophylactic Antibiotics: The patient does not require prophylactic antibiotics. Prior Anticoagulants: The patient has taken no anticoagulant or antiplatelet agents. ASA Grade Assessment: II - A patient with mild systemic disease. After reviewing the risks and benefits, the patient was deemed in satisfactory condition to undergo the procedure. The anesthesia plan was to use monitored anesthesia care (MAC). Immediately prior to administration of medications, the patient was re-assessed for adequacy to receive sedatives. The heart rate, respiratory rate, oxygen saturations, blood pressure, adequacy of pulmonary ventilation, and response to care were monitored throughout the procedure. The physical status of the patient was re-assessed after the procedure. After I obtained informed consent, the scope was passed under direct vision. Throughout the procedure, the patient's blood pressure, pulse, and oxygen saturations were monitored continuously. The Colonoscope was introduced through the anus and advanced to the cecum, identified by appendiceal orifice and ileocecal valve. The colonoscopy was performed without difficulty. The patient tolerated the procedure well. The quality of the bowel preparation was adequate. The ileocecal valve, appendiceal orifice, and rectum were photographed. Scope In: 12:46:45 PM Scope Withdrawal Time 0 hours 8 minutes 3 seconds Scope Out: 12:59:54 PM Total Procedure Duration Time 0 hours 13 minutes 9 seconds Findings: The perianal and digital rectal examinations were normal. Multiple small and large-mouthed diverticula were found in the rectum, recto-sigmoid colon, sigmoid colon and descending colon. Two sessile polyps were found in the recto-sigmoid colon. The polyps were 6 mm in size. These polyps were removed with a cold biopsy forceps. Resection and retrieval were complete. Verification of patient identification for the specimen was done. Estimated blood loss was minimal. Non-bleeding internal hemorrhoids were found during retroflexion. The hemorrhoids were Grade III (internal hemorrhoids that prolapse but require manual reduction). Impression: - Diverticulosis in the rectum, in the recto-sigmoid colon, in the sigmoid colon and in the descending colon. - Two 6 mm polyps at the recto-sigmoid colon, removed with a cold biopsy forceps. Resected and retrieved. - Non-bleeding internal hemorrhoids. Recommendation: - Repeat colonoscopy. - Continue present medications. Procedure Code(s): --- Professional --- 45445, Colonoscopy, flexible; with biopsy, single or multiple CPT copyright 2021 [employer]. All rights reserved. The codes documented in this report are preliminary and upon cart driver review may be revised to meet current compliance requirements. Mendez Cherry DO 05/01/2025 1:10:59 PM This report has been signed electronically. Number of Addenda: 0 Note Initiated On: 05/01/2025 12:35 PM
--- NOTE | 2025-05-01 21:57 | PCM.POSTANE2 ---
Anesthesia Postop Eval I Sum Postop Eval Completion status Anesthesia document: Postop Eval 1 completed: Yes Anesthesia Postop Eval I Summary Anesthesia Postop Eval I Summary: Anesthesia Postop Eval I: Assessment Summary Airway patent Yes 05/01/25 13:11 [email or web address] Spontaneous unlabored Yes 05/01/25 13:11 [email or web address] respirations Mental status Asleep 05/01/25 13:11 [email or web address] nausea No 05/01/25 13:11 [email or web address] Vomiting No 05/01/25 13:11 [email or web address] Anesthesia Postop Eval I: Fluid Summary Crystalloid volume administer 400 05/01/25 13:11 [email or web address] (ml) Colloids volume administered ( ml) Blood Product volume administered (ml) Total IV fluid infused 400 05/01/25 13:11 [email or web address] Anesthesia Postop Eval I: Summary Notes Anesthesia Complication No 05/01/25 13:11 [email or web address] Anesthesia Complication Comment: Post-operative progress note Anesthesia: Postop Eval II Evaluation Mental status: Awake and Calm Pain Level: 0 nausea: No Vomiting: No Complications Anesthesia Complication: No
== END 2025-05-01 14:02 | disposition home or self-care (01) ==
LOC: EN 11:19 → AC 11:21
PROVIDERS: PCP Internal Medicine; Referring Provider Internal Medicine; Visit Provider Internal Medicine Gastroenterology
PROC: 0DJD8ZZ Inspection of Lower Intestinal Tract, Via Natural or Artificial Opening Endoscopic (ICD-10-PCS; CPT 45378; principal; 2025-05-01 12:25)
DX: Z12.11 Encounter for screening for malignant neoplasm of colon (principal); K63.5 Polyp of colon; E78.5 Hyperlipidemia, unspecified; R15.9 Full incontinence of feces; Z87.891 Personal history of nicotine dependence; K64.2 Third degree hemorrhoids; I10 Essential (primary) hypertension; G47.33 Obstructive sleep apnea (adult) (pediatric); Z99.89 Dependence on other enabling machines and devices; Z79.82 Long term (current) use of aspirin; F41.8 Other specified anxiety disorders; K21.9 Gastro-esophageal reflux disease without esophagitis; Z96.659 Presence of unspecified artificial knee joint; Z98.51 Tubal ligation status; K57.30 Diverticulosis of large intestine without perforation or abscess without bleeding
CPT/HCPCS: 45380; 88305; J2405

== ENCOUNTER → 2025-05-23 | Outpatient (CLI) | payer MEDICARE, OTHER, SELFPAY ==
--- NOTE | 2025-05-23 14:45 | BI_ITS ---
EXAM: SCRN MAMM (CAD)W/NIR BILAT DATE: 05/23/2025 CLINICAL HISTORY: F, Age 80 y/o , BREAST CA SCREENING No family history. TECHNIQUE: Procedure Code: [id number] Modality: MG Procedure: SCRN MAMM (CAD)W/NIR BILAT COMPARISON: Prior exam(s) dated February 02, 2024.. FINDINGS: TISSUE DENSITY: The breasts are extremely dense, which lowers the sensitivity of mammography. Bilateral Breast Mammographic Findings: No significant masses, calcifications or other abnormalities are identified. No suspicious masses, areas of developing architectural distortion, or suspicious calcifications. There has been no significant interval change. BI/SCRN MAMM (CAD)W/NIR BILAT IMPRESSION: Stable bilateral screening mammogram. OVERALL FINAL ASSESSMENT BI-RADS 1: NEGATIVE. RECOMMENDATION: Routine annual follow-up in 1 Year Additional Recommendation none A letter with findings and recommendations will be mailed to the patient. Reading Location: [place] [id number]
== END | disposition home or self-care (01) ==
LOC: OPBI 14:42
PROVIDERS: PCP Internal Medicine; Referring Provider Nurse Practitioner Family; Visit Provider Nurse Practitioner Family
DX: Z12.31 Encounter for screening mammogram for malignant neoplasm of breast (principal)
CPT/HCPCS: 77063; 77067